=== PATIENT | female | born 1960 | race Caucasian/White ===

== ENCOUNTER 2021-12-15 17:31 | Observation (INO) | payer BC, OTHER, SELFPAY ==
[2021-12-15] VITALS (14 sets, daily range): BP systolic 117–176; BP diastolic 47–84; PULSE 89–100; RESP 16; TEMP 36.1–36.6; O2SAT 89–94; BMI 32.9; BMI 34.8
--- NOTE | 2021-12-15 18:58 | CRLHL7_ITS ---
For Patients: As a result of the Century Cures Act, medical imaging exams and procedure reports are released immediately into your electronic medical record. You may view this report before your referring provider. If you have questions, please contact your health care provider. INDICATION: Fever; cough; COPD; dyspnea. Comparison : None. TECHNIQUE: Two-view chest. FINDINGS: Normal size cardiac silhouette. Clear lung palomares with no evidence of acute pneumonic infiltrates or CHF. No pneumothorax or pleural effusion. IMPRESSION: Negative chest. Dictated by Tracey Benson MD @ 12/15/2021 7:50:29 PM (Electronically Signed)
--- NOTE | 2021-12-15 19:04 | ED_ITS ---
HPI - General Adult General Chief complaint: Cough Stated complaint: Fever, cough, wheezing Time Seen by Provider: 12/15/21 17:42 History of Present Illness HPI narrative: 61-year-old woman presenting to the emergency department with complaint of increasing shortness of breath. Does admit to an underlying diagnosis of COPD which apparently she questions. She does have appropriate steroid inhalers for it per her description. She also has nebulizers and medication for this though it is little unclear to me if this is duo nebs or albuterol that she insisted be dispensed at the beginning of COVRI. She has however not been using the nebulizers. She has continued to use her inhalers. Four evenings ago she started to feel unwell feeling chilled she took some ibuprofen and subsequently had sweats. She has some she had a fever at that point. Notes her baseline of 97?. She has had fits of coughing making her feel more short of breath. All this coughing is also resulted in soreness in the ribs in the back a little bit in the front margin as well. Does not describe any rash. No particular exposures. She thinks she might have a sinus infection noting that she can not feel anything in her nose. PAST MEDICAL HISTORY: Previous tobacco dependence, quit in 2018 COPD - Mild depression and anxiety - Seasonal allergies - ALLERGIES: Environmental allergies SURGICAL HISTORY: Right humerus ORIF. October 2019 One vaginal delivery Cholecystectomy Related Data Home Medications Medication Instructions Recorded Confirmed budesonide-formoterol HFA 160 2 puff inhalation BID 12/15/21 12/16/21 mcg-4.5 mcg/actuation aerosol inhaler bupropion HCl 150 mg 24 hr tablet, 150 mg PO DAILY 12/15/21 12/16/21 extended release fluticasone propionate 50 2 spray intranasal DAILY 12/15/21 12/16/21 mcg/actuation nasal spray,suspension ipratropium 20 mcg-albuterol 100 1 puff inhalation QID PRN 12/15/21 12/16/21 mcg/actuation mist for inhalation (Combivent Respimat) sertraline 25 mg tablet 25 mg PO DAILY 12/15/21 12/16/21 Previous Rx's Medication Instructions Recorded benzonatate 100 mg capsule 200 mg PO TID #20 caps 12/16/21 oseltamivir 30 mg capsule (Tamiflu) 30 mg PO BID #8 caps 12/16/21 prednisone 20 mg tablet 40 mg PO DAILYWM #6 tabs 12/16/21 benzonatate 200 mg capsule 200 mg PO TID #15 caps 12/17/21 oseltamivir 30 mg capsule (Tamiflu) 30 mg PO BID 5 days #6 caps 12/17/21 prednisone 20 mg tablet 40 mg PO DAILY #6 tabs 12/17/21 Allergies Allergy/AdvReac Type Severity Reaction Status Date / Time No Known Drug Allergies Allergy Verified 12/15/21 18:10 Review of Systems Status of ROS: Reports: 10 or more systems reviewed and unremarkable except as noted in History and below [facility] Medical History Blood pressure elevated without history of HTN (07/02/16) Chronic bronchitis with COPD (chronic obstructive pulmonary disease) (07/02/16) Generalized anxiety disorder Major depression Smoking greater than 30 pack years (02/16/15) Surgical History History of cholecystectomy Family History Brother Asthma Cancer High blood pressure Sister Cancer Mother Alzheimers disease Heart disease Asthma Son Asthma Social History Highest level of school completed/degree received: some college, no degree Smoking Status: Former smoker Do you use any of these nicotine containing products: None Second hand tobacco smoke exposure: No How often do you have a drink containing alcohol: never How often do you have six or more drinks on one occasion: Never AUDIT-C Alcohol total score: 0 Non-prescribed substance use: denies use Caffeine: Yes (A CUP/DAY) service: No Exam Narrative: Exam Narrative: Very pleasant. Bright green glasses. Clearly labored in her breathing. Mildly tachypneic. She does have trouble completing sentences due to breathlessness. Is also laryngitic. Oropharynx is moist with some erythematous speckling in far posterior oropharynx that I would associate with irritation from coughing. Neck is supple without LA. Very tight not moving a lot of air. Diffuse end-expiratory wheeze. At 1 point she does do some pursed lip breathing and I asked about this she says she does feel more comfortable with this. Extremities are without edema. Well perfused peripherally. During our conversation with good waveform she does oxygen a between 91 and 93% generally at 1 point hits 94. Const: Vital Signs, click to edit/add: Vital Signs - 24 hr 12/15/21 18:03 12/15/21 19:00 12/15/21 18:57 Temperature 97.8 F Pulse Rate [Right Pulse Oximeter] 100 89 Respiratory Rate 16 Blood Pressure [Ri ght Upper Arm] 154/68 H 144/76 H Pulse Oximetry 93 93 91 Oxygen Delivery Me thod Room Air Room Air Oxygen Flow Rate 12/15/21 20:11 12/15/21 20:30 12/15/21 18:35 Temperature Pulse Rate [Right Pulse Oximeter] Respiratory Rate Blood Pressure [Ri ght Upper Arm] 130/68 176/77 H Pulse Oximetry 89 93 Oxygen Delivery Me thod Room Air Nasal Cannula Oxygen Flow Rate 2 12/15/21 20:00 Temperature Pulse Rate [Right Pulse Oximeter] 93 Respiratory Rate Blood Pressure [Ri ght Upper Arm] Pulse Oximetry 91 Oxygen Delivery Me thod Room Air Oxygen Flow Rate Documenting provider has reviewed patient's vital signs: yes Course Course Hospital Course: Monitored on oximetry. Will be given a DuoNeb and Solu-Medrol. Presuming COPD exacerbation though screening for underlying infectious etiology. Influenza a positive Reevaluation(s) Reevaluation #1: Received DuoNeb. Oxygen saturations on room air now are 89%. However with markedly improved air movement and in the absent wheezing. Appears to be breathing easier/less labored. Placed on oxygen via nasal cannula Vital Signs Vital signs: Initial Vital Signs Temperature 97.8 F 12/15/21 18:03 Temperature Source Temporal Artery Scan 12/15/21 18:03 Pulse Rate 100 12/15/21 18:03 Pulse Rhythm 12/15/21 18:03 Respiratory Rate 16 12/15/21 18:03 Blood Pressure 154/68 H 12/15/21 18:03 Blood Pressure Mean 96 12/15/21 18:03 Blood Pressure Position Sitting 12/15/21 18:03 Pulse Oximetry 93 12/15/21 18:03 Oxygen Delivery Method 12/15/21 18:03 Vital Signs Temperature 97.8 F 12/15/21 18:03 Pulse Rate 100 12/15/21 18:03 Respiratory Rate 16 12/15/21 18:03 Blood Pressure 154/68 H 12/15/21 18:03 Pulse Oximetry 93 12/15/21 18:03 Oxygen Delivery Method 12/15/21 18:03 Temperature 97.9 F 12/16/21 07:00 Pulse Rate 83 12/16/21 07:00 Respiratory Rate 18 12/16/21 07:00 Blood Pressure 137/71 12/16/21 07:00 Pulse Oximetry 91 12/16/21 07:00 Oxygen Delivery Method 12/16/21 07:00 Oxygen Flow Rate 0 12/16/21 07:00 Medical Decision Making MDM Narrative Medical decision making narrative: Reviewing records I see baseline oxygen saturations at 96% on room air Chest x-ray reviewed by me appears absent of any infiltrative process. VBGs show compensation. Will be admitting for oxygen support Medical Records Medical records reviewed: Yes I reviewed the patient's medical records Lab Data Lab results reviewed: Yes I reviewed the patient's lab results Labs: Lab Results 12/15/21 12/15/21 12/15/21 Range/Units 19:15 19:15 19:15 WBC 5.20 (4.50-11.00) K/uL RBC 5.01 (4.00-5.20) m/uL Hgb 14.6 (12.0-16.0) gm/dL Hct 44.9 (33.0-51.0) % MCV 90 (80-100) fL MCH 29 (26-34) pg MCHC 33 (32-36) gm/dL RDW Coeff of Mary 12.9 (11.5-15.5) % Plt Count 232 (140-440) K/uL Neut % (Auto) 69.6 (42.0-72.0) % Lymph % (Auto) 17.5 L (20-44) % [place] % (Auto) 12.5 H (0.0-11.0) % Eos % (Auto) 0.0 (0.0-7.0) % Baso % (Auto) 0.2 (0.0-3.0) % Neut # (Auto) 3.62 (1.7-7.0) K/uL Lymph # (Auto) 0.90 (0.90-2.90) K/uL [place] # (Auto) 0.70 (0.00-0.90) K/UL Eos # (Auto) 0.00 (0.00-0.50) K/uL Baso # (Auto) 0.01 (0.00-0.30) K/uL Abs Immat Gran (auto) 0.01 (0.00-0.30) K/uL Imm/Tot Granulo (auto) 0.2 % VBG pH (7.32-7.43) VBG pCO2 (40-50) mmHG VBG pO2 (25-47) mmHG VBG HCO3 (21-28) mmol/L Sodium 134 L (135-149) mmol/L Potassium 4.2 (3.6-5.1) mmol/L Chloride 99 (96-114) mmol/L Carbon Dioxide 27 (20-32) mmol/L BUN 15 (7-30) mg/dL Creatinine 0.7 (0.5-1.5) mg/dL Estimated Creat Clear 45.54 Estimated GFR 97 ml/min Glucose 102 (60-115) mg/dL Calcium 8.9 (8.4-10.6) mg/dL C-Reactive Protein 2.6 H (0.5-1.0) mg/dL SARS-CoV-2 (PCR) Negative SARS-CoV-2 (Negative) Influenza Type A (PCR) POSITIVE PCR FLU A A (Negative) Influenza Type B (PCR) Negative PCR FLU B (Negative) RSV (PCR) Negative PCR RSV (Negative) 12/15/21 Range/Units 19:15 WBC (4.50-11.00) K/uL RBC (4.00-5.20) m/uL Hgb (12.0-16.0) gm/dL Hct (33.0-51.0) % MCV (80-100) fL MCH (26-34) pg MCHC (32-36) gm/dL RDW Coeff of Mary (11.5-15.5) % Plt Count (140-440) K/uL Neut % (Auto) (42.0-72.0) % Lymph % (Auto) (20-44) % [place] % (Auto) (0.0-11.0) % Eos % (Auto) (0.0-7.0) % Baso % (Auto) (0.0-3.0) % Neut # (Auto) (1.7-7.0) K/uL Lymph # (Auto) (0.90-2.90) K/uL [place] # (Auto) (0.00-0.90) K/UL Eos # (Auto) (0.00-0.50) K/uL Baso # (Auto) (0.00-0.30) K/uL Abs Immat Gran (auto) (0.00-0.30) K/uL Imm/Tot Granulo (auto) % VBG pH 7.366 (7.32-7.43) VBG pCO2 50 (40-50) mmHG VBG pO2 43.0 (25-47) mmHG VBG HCO3 29 H (21-28) mmol/L Sodium (135-149) mmol/L Potassium (3.6-5.1) mmol/L Chloride (96-114) mmol/L Carbon Dioxide (20-32) mmol/L BUN (7-30) mg/dL Creatinine (0.5-1.5) mg/dL Estimated Creat Clear Estimated GFR ml/min Glucose (60-115) mg/dL Calcium (8.4-10.6) mg/dL C-Reactive Protein (0.5-1.0) mg/dL SARS-CoV-2 (PCR) (Negative) Influenza Type A (PCR) (Negative) Influenza Type B (PCR) (Negative) RSV (PCR) (Negative) Imaging Data Chest x-ray: Attestation: I have reviewed the pertinent imaging results. My impression: By my read appears clear of airspace disease Discharge Plan Discharge Clinical Impression: Influenza A, Respiratory failure, COPD (chronic obstructive pulmonary disease) Patient Disposition: Admitted As Inpatient Condition: Stable Discharge Diet: Regular
[2021-12-15] MEDS: IPRAT-ALBUT 0.5-2.5 MG/3 ML NEB 1 NEB IH ×2 (19:20→23:56)
[2021-12-15 19:27] LABS: HCO3 VBG 29 mmol/L (21-28); PCO2 VBG 50 mmHG (40-50); pH VBG 7.366 (7.32-7.43)
[2021-12-15] MEDS: METHYLPREDNISOLONE SOD SUCC 62.5 MG/ML (125) 93.75 MG IVP (19:28)
[2021-12-15 19:29] LABS: Basophils Absolute Auto 0.01 K/uL (0.00-0.30); Basophils Percent Auto 0.2 % (0.0-3.0); Hematocrit 44.9 % (33.0-51.0); Hemoglobin* 14.6 gm/dL (12.0-16.0); Immature Granulocytes Abs Auto 0.01 K/uL (0.00-0.30); Immature Granulocytes Pct Auto 0.2 %; Lymphocytes Percent Auto 17.5 % (20-44); Mean Corpuscular HGB Conc 33 gm/dL (32-36); Mean Corpuscular Hemoglobin 29 pg (26-34); Mean Corpuscular Volume 90 fL (80-100); Monocytes Percent Auto 12.5 % (0.0-11.0); Neutrophils Absolute Auto 3.62 K/uL (1.7-7.0); Neutrophils Percent Auto 69.6 % (42.0-72.0); Platelet Count* 232 K/uL (140-440); RDW Coefficient of Variation % 12.9 % (11.5-15.5); Red Blood Count 5.01 m/uL (4.00-5.20)
[2021-12-15 19:33] LABS: Slide Review Reflex No
[2021-12-15 19:41] LABS: Chloride* 99 mmol/L (96-114); Potassium* 4.2 mmol/L (3.6-5.1); Sodium* 134 mmol/L (135-149)
[2021-12-15 19:44] LABS: Creatinine* 0.7 mg/dL (0.5-1.5); Est. Creatinine Clearance* 45.54; Estimated Glomerular Filt Rate 97 ml/min
[2021-12-15 19:45] LABS: Blood Urea Nitrogen* 15 mg/dL (7-30); Calcium* 8.9 mg/dL (8.4-10.6); Carbon Dioxide* 27 mmol/L (20-32); Glucose* 102 mg/dL (60-115)
[2021-12-15 19:47] LABS: C Reactive Protein* 2.6 mg/dL (0.5-1.0)
[2021-12-15 20:08] LABS: PCR FLU A POSITIVE PCR FLU A (Negative); PCR FLU B Negative PCR FLU B (Negative); PCR RSV Negative PCR RSV (Negative)
[2021-12-15 20:09] LABS: SARS PCR* Negative SARS-CoV-2 (Negative)
--- OUTSIDE RECORDS SUMMARY | 2021-12-15 20:23 | XMS_ITS | Encounter Summary ---
:1960 Author Organization [facility] Address [address] [place] [address] Care Team Providers Name Role Phone [facility] Sim Velazquez MD Primary Care Provider Reason for Visit Reason Comments Neck pain saw surgeon 05/25/[address], results found lipoma, noticed it a couple months ago, family hx of fatal malignant lipomas Encounter Details Date Type Department Care Team Description 06/01/2020 Virtual Visit [facility] Sim Velazquez, Lipom a, unspecified site (Primary Dx); [facility] COPD with exacerbation (HCC) [place] [address] [place], [place] [address] [place] [address] [place] [address] Social History Tobacco Use Types Packs/Day Years Used Date Smoking Tobacco: Former Cigarettes 1 45 Quit : 06/18/2017 Smokeless Tobacco: Never Comments: doesn't smoke in her house Alcohol Use Standard Drinks/Week Comments No 0 (1 standard drink = 0.6 oz pure alcoho l) Sex Assigned at Date Recorded Not on file COVID-19 Exposure Response Date Recorded In the last month, have you been in contact with No / Unsure 05/02/2020 1:59 PM CDT someone who was confirmed or suspected to have Coronavirus / COVID-19? documented as of this encounter Progress Notes Sim Velazquez MD - 06/01/2020 2:15 PM CDT Cristal Rosales presents today via telehealth visit for Neck pain (saw surgeon 05/25/[address], results found lipoma, noticed it a couple months ago, family hx of fatal malignant lipomas) . Lipoma- pt had noticed a swelling on the right collar bone- she had a visit with the orthopedic and was seen for it She under went CT [place] and was diagnosed with lipoma- She is worried about the lipoma since her sister from liposarcoma and her aunt had the same She wants to know more about it She has h/o COPD which is stable She wants refills on her combivent- No s/e from the meds and no flare ups/ exacerbations Problem list, Medications, and Allergies were reviewed in [employer] EMR. O: There were no vitals taken for this visit. General: Calm, no acute distress Psych: Mood and behavior appropriate A/P: Cristal was seen today for neck pain. Diagnoses and all orders for this visit: Lipoma, unspecified site COPD with exacerbation (HCC) - ipratropium-albuteroL (COMBIVENT RESPIMAT) 20-100 mcg/actuation Inhl Mist inhaler; INHALE ONE PUFFBY MOUTH FOUR TIMES DAILY NEEDED I had a long discussion with the patient regarding her findings. I have reviewed her notes from the orthopedic surgeon and also from the CT scan results. I went over the clinical findings of her lipomaand described to her what a lipoma means and also the clinical findings from a liposarcoma. We discussed about the malignant potential of liposarcoma and the symptoms patients will experience with it. It is reassuring that her symptoms are only of a lipoma and not a liposarcoma. We discussed about theinvestigation of liposarcoma including biopsy and further excision. I gave a lot of information to the patient regarding the lipoma, and the liposarcoma she is going to think about it and we will keep a close follow-up on the size of the tumor. At any point if she decides to see a surgeon I will be happy to make the referral. Patient COPD is under good control without any exacerbations. Her medication has been refilled. This visit was completed via interactive telehealth by Sim Velazquez MD by audio only. The patient (or guardian) is aware the visit is a telehealth visit and verbally consents to proceeding, including use of outside records via Care Everywhere as needed. Present for the visit include Cristal Rosales and none. The visit was conducted via telehealth due to COVID-19 pandemic.. Patient is located at home. Provider is located at [facility]. Total time spent today for visit was 20 minutes and included: Review of records, Coordination of care and Documentation of visit. Full vital signs not obtained due to telehealth. Any recorded vitals are self- reported by patient. Sim Velazquez MD documented in this encounter Plan of Treatment Not on filedocumented as of this encounter Visit Diagnoses Diagnosis Lipoma, unspecified site - Primary COPD with exacerbation (HCC) Obstructive chronic bronchitis with exac erbation documented in this encounter Care Teams Tax Economist Relationship Specialty Start Date End Date [facility] PCP - Primary Care Clinic Family Medicine 08/20 [facility] [address] [place], [place] [id number] Sim Velazquez MD PCP - General Family Medicine 08/21/[address] [place] [address] documented as of this encounter
--- OUTSIDE RECORDS SUMMARY | 2021-12-15 20:23 | XMS_ITS | Encounter Summary ---
:1960 Author Organization [facility] Address [address] [place] [address] Care Team Providers Name Role Phone [facility] Unavailable Sim Velazquez MD Primary Care Provider Reason for Referral (Routine) - Open Specialty Diagnoses / Procedures Referred By Contact Refer red To Contact Diagnoses Tobacco use Smoking greater than 30 pack years Encounter for screening for lung cancer Sim Velazquez MD Procedures CT CHEST LOW DOSE LUNG SCREENING W/O CON [address] [place] [address] Referral ID Status Reason Start Date Expiration Date Visits Requ ested Visits Authorized [id number] Open 08/29/2021 1 1 Reason for Visit (Routine) - Open Specialty Diagnoses / Procedures Referred By Contact Refer red To Contact Diagnoses Tobacco use Smoking greater than 30 pack years Encounter for screening for lung cancer Sim Velazquez MD Procedures CT CHEST LOW DOSE LUNG SCREENING W/O CON [address] [place] [address] Referral ID Status Reason Start Date Expiration Date Visits Requ ested Visits Authorized [id number] Open 08/29/2021 1 1 Encounter Details Date Type Department Care Team Description 09/12/2021 Hospital Encounter [facility] [address] [facility], [facility] [address] [place] [address] Social History Tobacco Use Types Packs/Day Years Used Date Smoking Tobacco: Former Cigarettes 1 45 Quit : 06/18/2017 Smokeless Tobacco: Never Comments: doesn't smoke in her house Alcohol Use Standard Drinks/Week Comments No 0 (1 standard drink = 0.6 oz pure alcoho l) Sex Assigned at Date Recorded Not on file COVID-19 Exposure Response Date Recorded In the last 10 days, have you been in contact with No / Unsu re 08/29/2021 9:19 AM CDT someone who was confirmed or suspected to have Coronavirus/COVID-19? documented as of this encounter Medications at Time of Discharge Medication Sig Dispensed Refills Start Date End Date budesonide, conc: 2 mL (0.5 mg) by 1 Box 12 05/22/2019 0.5mg/2mL, (PULMICORT) Nebulization route 0.5 mg/2 mL Inhl once daily. nebulizer suspension buPROPion XL Take 1 tablet (150 mg) 90 tablet 3 08/29/2021 (WELLBUTRIN XL) 150 mg by mouth once daily. oral extended release tablet 24 HRIndications: Depression, major, recurrent, moderate (HCC) COMBIVENT RESPIMAT INHALE 1 PUFF BY MOUTH 12 g 3 01/18 20-100 mcg/actuation FOUR TIMES DAILY Inhl Mist NEEDED inhalerIndications: COPD with exacerbation (HCC) fluticasone (FLONASE) SHAKE LIQUID AND USE 2 48 g 3 50 mcg/actuation nasal SPRAYS IN EACH NOSTRIL sprayIndications: EVERY DAY Chronic bronchitis with COPD (chronic obstructive pulmonary disease) ([facility]) Miscellaneous Medical Nebulizer with tubing 1 each 0 11/2019 Supply and face mask sertraline (ZOLOFT) 25 TAKE 1 TABLET(25 MG) 90 tablet 3 mg oral BY MOUTH EVERY DAY tabletIndications: Current moderate episode of major depressive disorder without prior episode ([facility]) budesonide 160 INHALE 2 PUFFS BY 30.6 g 0 08/07/2021 mcg-formoterol 4.5 mcg MOUTH TWICE DAILY (SYMBICORT) 160-4.5 mcg/actuation Inhl HFAA inhalerIndications: Chronic obstructive pulmonary disease, unspecified COPD type (HCC) documented as of this encounter Plan of Treatment Not on filedocumented as of this encounter Procedures Procedure Name Priority Date/Time Associated Diagnosis Comme nts CT CHEST LOW DOSE Routine 09/12/2021 1:42 PM Tobacco use Results for this LUNG SCREENING W/O CDT Smoking greater than p rocedure are in CON 30 pack years the results Encounter for section. screening for lung cancer documented in this encounter Results CT Lung Cancer Screening (09/12/2021 1:42 PM CDT) Anatomical Region Laterality Modality Chest Computed Tomography Specimen (Source) Anatomical Collection Method Collection Time Re ceived Time Location / / Volume Laterality 09/12/2021 2:44 PM CDT Impressions 09/12/2021 2:52 PM CDT IMPRESSION: ?? 1. ??No CT evidence of lung cancer. 2. ??Atherosclerotic disease of the thor acic aorta and coronary arteries. 3. ??Cholecystectomy. Lung-RADS 1: ??Negative. ??Continue zelalem al screening with LDCT in [address]PORT [address]IGNED BY DR. DANUTA HUNTLEY Narrative 09/12/2021 2:52 PM CDT EXAM: CT CHEST LOW DOSE LUNG SCREENING W/O CON DATE: ??09/12/2021 1:37 PM CLINICAL DATA: ??Z72.0 Tobacco use F17.2 10 Nicotine dependence, cigarettes, uncomplicated Z12.2 Encounter for screening for malignant neoplasm of respiratory organs ADDITIONAL CLINICAL DATA: COMPARISON: ??None. TECHNIQUE: ??A low-dose unenhanced CT sc an of the thorax was performed. ??Specifically, thin-section contiguous transaxial images were obtained through the thorax. ??Coronal reformations were also obtai kim through the thorax. ??No intravenous contrast was given. Reduced mA and kV were used to lower the radiation dose absorbed by the patient. FINDINGS: Mediastinum/Axilla/Colette: ??No axillary, mediastinal, or hilar lymphadenopathy. ??Atherosclerotic disease of the coronary arteries and thoracic aorta. ??No evidence of aortic aneurysm. Lungs: ??No focal infiltrates, effusions , or worrisome pulmonary nodules. Upper Abdomen: ??Cholecystectomy. ?? Bones: ??No acute findings. Other: Procedure Note Gregg Huntley MD - 09/12/2021Forma tting of this note might be different from the original. EXAM: CT CHEST LOW DOSE LUNG SCREENING W /O CON DATE: 09/12/2021 1:37 PM CLINICAL DATA: Z72.0 Tobacco use F17.210 Nicotine dependence, cigarettes, uncomplicated Z12.2 Encounter for screening for malignant neoplasm of respiratory organs ADDITIONAL CLINICAL DATA: COMPARISON: None. TECHNIQUE: A low-dose unenhanced CT scan of the thorax was performed. Specifically, thin-section contiguous transaxial images were obtained through the thorax. Coronal reformations were also obtained through the thorax. No intravenous contrast was give n. Reduced mA and kV were used to lower the radiation dose absorbed by the patient. FINDINGS: Mediastinum/Axilla/Colette: No axillary, me diastinal, or hilar lymphadenopathy. Atherosclerotic disease of the coronary arteries and thoracic aorta. No evidence of aortic aneurysm. Lungs: No focal infiltrates, effusions, or worrisome pulmonary nodules. Upper Abdomen: Cholecystectomy. Bones: No acute findings. Other: IMPRESSION IMPRESSION: 1. No CT evidence of lung cancer. 2. Atherosclerotic disease of the thorac ic aorta and coronary arteries. 3. Cholecystectomy. Lung-RADS 1: Negative. Continue annual s creening with LDCT in 12 months. REPORT SIGNED BY DR. DANUTA HUNTLEY Sim Velazquez MD CT ORDERABLE documented in this encounter Visit Diagnoses Diagnosis Tobacco use Tobacco use disorder Smoking greater than 30 pack years Tobacco use disorder Encounter for screening for lung cancer documented in this encounter Care Teams Assembler Arranger Relationship Specialty Start Date End Date [facility] PCP - Primary Care Clinic Family Medicine 08/20 [facility] [address] [place], [place] [address] Sim Velazquez MD PCP - General Family Medicine 08/21/[address] [place], [place] [address] documented as of this encounter
--- OUTSIDE RECORDS SUMMARY | 2021-12-15 20:23 | XMS_ITS | Encounter Summary ---
:1960 Author Organization [facility] Address [address] [place] [address] Care Team Providers Name Role Phone [facility] Unavailable Sim Velazquez MD Primary Care Provider Encounter Details Date Type Department Care Team Description 08/29/2021 Travel Social History Tobacco Use Types Packs/Day Years [...] have Coronavirus/COVID-19? documented as of this encounter Plan of Treatment Not on filedocumented as of this encounter Visit Diagnoses Not on filedocumented in this encounter Care Teams Social Worker Health Services Relationship Specialty Start Date End Date [facility] PCP - Primary Care Clinic Family Medicine 08/20 [facility] [address] [place] [address] Sim Velazquez MD PCP - General Family Medicine 08/21/[address] [place] [address] documented as of this encounter
--- OUTSIDE RECORDS SUMMARY | 2021-12-15 20:23 | XMS_ITS | Encounter Summary ---
:[address] [facility] Address [address] [place] [address] Care Team Providers Name Role Phone [facility] Sim Velazquez MD Primary Care Provider Reason for Visit Reason Onset Date Comments Flank pain 03/26/2021 Encounter Details Date Type Department Care Team Description 03/26/[address] [facility] Scott Velazquez MD [facility] [address] [place] [address] [place] [address] [place] [address] [phone] Social History Tobacco Use Types Packs/Day Years Used Date Smoking Tobacco: Former Cigarettes 1 45 Quit : 06/18/2017 Smokeless Tobacco: Never Comments: doesn't smoke in her house Alcohol Use Standard Drinks/Week Comments No 0 (1 standard drink = 0.6 oz pure alcoho l) Sex Assigned at Date Recorded Not on file documented as of this encounter Miscellaneous Notes Telephone Encounter - Lashawn Victor RN - 03/26/2021 1:36 PM CST Disposition: ED Actions Requested: none Ok to leave detailed voice message:yes PCP:Yousuf Velazquez Summary of call details: Patient calling in regards to two episodes of severe 10/10 Right sided flank pain that radiated from front to back by rib cage. The first episode was 10 days ago and lasted 5 hours. Patient reports second episode was 2 nights ago and lasted 3 hours. She denies pain now today, but did have low grade fever qf 100.2 yesterday. She states her nausea resolved after first episode. Patient states she had imaging done in the past for something else, and was told she had a kidney stone on Right side. Patient also reports being tired and feling weak. See care advise. Hailey agreed with disposition and verbalized understanding stating she will go to [facility] today or next time pain comes. 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 ? [1] SEVERE pain (e.g., excruciating, scale 8-10) AND [2] present > 1 hour Answer Assessment - Initial Assessment Questions 1. LOCATION: Where does it hurt? (e.g., left, right) Right side by rib cage, (none now) 2. ONSET: When did the pain start? 10 days ago, then again 2 nights ago 3. SEVERITY: How bad is the pain? (e.g., Scale 1-10; mild, moderate, or severe) - MILD (1-3): doesn't interfere with normal activities - MODERATE (4-7): interferes with normal activities or awakens from sleep - SEVERE (8-10): excruciating pain and patient unable to do normal activities (stays in bed) 10/10 at first, 10/10 a few nights ago 4. PATTERN: Does the pain come and go, or is it constant? Comes & goes, lasted 3 & 5 hours 5. CAUSE: What do you think is causing the pain? Possible kidney stones? 6. OTHER SYMPTOMS: Do you have any other symptoms? (e.g., fever, abdominal pain, vomiting, leg weakness, burning with urination, blood in urine) Pain, fever 100.2 yesterday, fatigue, weakness, nausea resolved, 7. : Is there any chance you are ? When was your last menstrual period? 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 PCP - Primary Care Clinic Family Medicine 08/20 [facility] [address], [place] [address] Sim Velazquez MD PCP - General Family Medicine 08/21/19 [address], [place] [address] documented as of this encounter
--- OUTSIDE RECORDS SUMMARY | 2021-12-15 20:23 | XMS_ITS | Clinical Summary ---
:1960 Author Organization [facility] Address [address] [place] [address] Care Team Providers Name Role Phone [facility] Unavailable Sim Velazquez MD Primary Care Provider Allergies Active Allergy Reactions Severity Noted Date Comments Mold (Juan) Runny Nose 02/16/2015 Medications Medication Sig Dispensed Refills Start Date End Date Status Miscellaneous Medical Nebulizer with 1 each 0 05/22/2019 Active Supply tubing and face mask budesonide, conc: 2 mL (0.5 mg) by 1 Box 12 05/22/2019 Active 0.5mg/2mL, Nebulization route (PULMICORT) 0.5 mg/2 once daily. mL Inhl nebulizer suspension COMBIVENT RESPIMAT INHALE 1 PUFF BY 12 g 3 01/18/2021 Active 20-100 mcg/actuation MOUTH FOUR TIMES Inhl Mist DAILY NEEDED inhalerIndications: COPD with exacerbation (HCC) buPROPion XL Take 1 tablet (150 90 tablet 3 08/29/2021 Active (WELLBUTRIN XL) 150 mg) by mouth once mg oral extended daily. release tablet 24 HRIndications: Depression, major, recurrent, moderate (HCC) sertraline (ZOLOFT) TAKE 1 TABLET(25 90 tablet 3 08/29/2021 Active 25 mg oral MG) BY MOUTH EVERY tabletIndications: DAY Current moderate episode of major depressive disorder without prior episode (HCC) fluticasone (FLONASE) SHAKE LIQUID AND 48 g 3 08/29/2021 Active 50 mcg/actuation USE 2 SPRAYS IN nasal EACH NOSTRIL EVERY sprayIndications: DAY Chronic bronchitis with COPD (chronic obstructive pulmonary disease) ([facility]) budesonide 160 INHALE 2 PUFFS BY 30.6 g 0 11/03/2021 Active mcg-formoterol 4.5 MOUTH TWICE DAILY mcg (SYMBICORT) 160-4.5 mcg/actuation Inhl HFAA inhalerIndications: Chronic obstructive pulmonary disease, unspecified COPD type (HCC) Active Problems Problem Noted Date Chronic obstructive pulmonary disease, unspecified SPRING BENDER D type 09/03/2017 Chronic bronchitis with COPD (chronic obstructive pulm onary disease) 07/02/2016 Blood pressure elevated without history of HTN 017 Smoking greater than 30 pack years 02/16/2015 Resolved Problems Problem Noted Date Resolved Date Closed displaced segmental fracture of shaft of right 201904/27/2020 humerus with routine healing Closed fracture of right proximal humerus 09/10/2019 04/27/2020 Overview: Last Assessment & Plan: Formatting of this note might be differe nt from the original. 59yo RHD F 3 weeks s/p right proximal hu merus and humeral shaft fracture, treated non-op in a Wilhelm brace, with some increased varus angulation of shaft fracture on x-ray today but still WNL for non-op mgmt. -Continue Wilhelm brace - okay to roger ve for hygiene -No heavy lifting, pushing, or pulling w ith right hand -Encouraged elbow/wrist/hand ROM as tole rated -Rest, ice, and OTC pain mgmt as needed -Continue calcium and vitamin D suppleme nts Immunizations Name Administration Dates Next Due SHINGRIX 01/31/2019, 10/25/2018 Influenza 10/28/2019, 10/25/2018, 10/25/2016, 12/26/2007 Pneumococcal 13-Edith (Prevnar 13) 06/27/2016 Pneumococcal 23-Edith (Pneumovax) 12/02/2018 Td >7 Yrs 06/19/2003 Tdap >7 yrs 07/02/2016 Family History Medical History Relation Comments Asthma Brother 1 Lung Cancer Brother 1 liposarcoma High Blood Pressure Brother 2 Alzheimer's Disease Mother Asthma Mother Heart Disease Mother CABG Cancer Sister absestos Asthma Son Breast Cancer Neg Family Hx Relation Status Comments Brother 1 Brother 2 Alive Father occupational illness unknown Mother Sister Son Social History Tobacco Use Types Packs/Day Years Used Date Smoking Tobacco: Former Cigarettes 1 45 Quit : 06/18/2017 Smokeless Tobacco: Never Tobacco Cessation: Counseling Given: No Comments: doesn't smoke in her house Alcohol Use Standard Drinks/Week Comments No 0 (1 standard drink = 0.6 oz pure alcoho l) Sex Assigned at Date Recorded Not on file Last Filed Vital Signs Vital Sign Reading Time Taken Comments Blood Pressure 124/80 08/29/2021 9:43 AM CDT Pulse 76 08/29/2021 9:43 AM CDT Temperature 36.8 ??C (98.2 ??F) 08/29/2021 9:43 AM CDT Respiratory Rate 16 08/21/2019 10:39 AM CDT Oxygen Saturation 96% 04/27/2020 10:16 AM CDT Inhaled Oxygen Concentration - - Weight 89 kg (196 lb 4.8 oz) 08/29/2021 9:43 AM CDT Height 154 cm (5' 0.63) 08/29/2021 9:43 AM CDT Body Mass Index 37.54 08/29/2021 9:43 AM CDT Plan of Treatment Health Maintenance Due Date Last Done Comments Colonoscopy 1960 Spirometry 08/27/1962 Pap Smear 07/02/2021 07/02/2016, 12/26/2007 (Previously completed) COVID-19 Vaccine (5 - Booster for 08/12/2021 06/17/2021, , Moderna series) 05/28/2020, Additional history exists Influenza Vaccine (#1) 2021 10/28/2019, 10/25/2018, 10/25/2016, Additional history exists Yearly Review of HCD 08/29/2022 08/29/2021, 08/21/2019, 08/21/2019, Additional history exists Lung Cancer Screening CT 09/12/2022 09/12/2021 Mammogram Screening 09/13/2023 09/12/2021, 04/27/2020, 04/22/2020, Additional history exists Pneumococcal <65 (3 - PPSV23 if 12/03/2023 12/02/2018, 06/11 available, else PCV20) Diabetes Screening 08/29/2024 08/29/2021, 04/27/2020, 12/02/2018, Additional history exists Adult Tetanus Booster 07/02/2026 07/02/2016, 06/19/2003 Lipid Screening 08/29/2026 08/29/2021, 04/27/2020, 12/02/2018, Additional history exists Hepatitis C Screening Completed 07/02/2016 Zoster Vaccine Completed 01/31/2019, 10/25/2018 Medical Devices Implanted Type Area Low Altitude Air Defense Officer Device Identifier Shelf Exp iration Model / Date Serial / L ot Stereo Bx/Hydromark T3-05/02/2020 Clip / Implanted: Qty: 1 on 05/02/2020 by Delia Gonzales MD / [id number] Insurance Payer Benefit Plan Subscriber ID Effective Phone Address Typ e / Group Dates BLUE [facility] [id number] 2000-Pres [phone] [employer] [address] [id number] [place] [address] [place] [id number] 2016-Prese [phone] 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
--- OUTSIDE RECORDS SUMMARY | 2021-12-15 20:23 | XMS_ITS | Encounter Summary ---
:1960 Author Organization [facility] Address [address] [place] [id number] Care Team Providers Name Role Phone [facility] Unavailable Sim Velazquez MD Primary Care Provider Reason for Referral (Routine) - Open Specialty Diagnoses / Procedures Referred By Contact Refer red To Contact Diagnoses Tobacco use Smoking greater than 30 pack years Encounter for screening for lung cancer Sim Velazquez MD Procedures CT CHEST LOW DOSE LUNG SCREENING W/O CON [address] [place] [address] Referral ID Status Reason Start Date Expiration Date Visits Requ ested Visits Authorized [id number] Open 08/29/2021 1 1 Consultation (Routine) - Authorized Specialty Diagnoses / Procedures Referred By Contact Refer red To Contact Gastroenterology Diagnoses Screening for colon cancer Sim Velazquez MD [facility] - [address] [place] [address] [place] [address] [place] [address] Referral ID Status Reason Start Expiration Visits Visits Date Date Requested Authorized [id number] Authorized Specialty 08/29/2021 1 1 Services Required Question Answer Indication for test? Routine initial screen Comments [facility] will be conta cting you to schedule your appointment. If you have immediate needs or questions re garding this appointment, please call [facility] at . Reason for Visit Reason Comments Medicare wellness Medication management Concern Right neck lipoma, discussio n Bruises Encounter Details Date Type Department Care Team Description 08/29/2021 Office Visit Sim Shay Encoun ter for Medicare annual wellness exam (Primary Dx); [facility] Screening for colon cancer; [place] [address] Chronic bronchitis with COPD (chronic ob structive pulmonary disease) (HCC); [address] [place], [place] [address] Tobacco use; [place] Screening for cervical cancer; [place], [place] Smoking g reater than 30 pack years; [id number] Encounter for screening for lung cancer; [phone] [facility]; Current moderat e episode of major depressive disorder without prior episode (HCC); Depression, yan or, recurrent, moderate (HCC); Screening for d iabetes mellitus; Lipid screening Social History Tobacco Use Types Packs/Day Years [...] have Coronavirus/COVID-19? documented as of this encounter Last Filed Vital Signs Vital Sign Reading Time Taken Comments Blood Pressure 124/80 08/29/2021 9:43 AM CDT Pulse 76 08/29/2021 9:43 AM CDT Temperature 36.8 ??C (98.2 ??F) 08/29/2021 9:43 AM CDT Respiratory Rate - - Oxygen Saturation - - Inhaled Oxygen Concentration - - Weight 89 kg (196 lb 4.8 oz) 08/29/2021 9:43 AM CDT Height 154 cm (5' 0.63) 08/29/2021 9:43 AM CDT Body Mass Index 37.54 08/29/2021 9:43 AM CDT documented in this encounter Patient Instructions Patient InstructionsGeovanna Amador - 08/29/2021 9:30 AM CDT In order to achieve and maintain the highest level of health, we recommend the following tests and healthy behaviors. You may have had many of these tests already and you may also be following this advice, but if you are not, please discuss this with your health care team. ??? Drink alcohol only in moderation, avoid binge drinking and do not drink and drive. ??? You should have a PAP smear every 3 or 5 years (depending on test) if you have a history of normal PAP smears. ??? If you are sexually active, consider annual infection testing including testing for HIV, Gonorrhea, Chlamydia, and Syphilis. ??? You should not use any tobacco products and, if you do, we should discuss your willingness to quit at each visit. ??? You should watch your weight and keep it in the normal range. ??? You should receive a tetanus booster every 10 years. ??? You should have a mammogram every 1-2 years starting at age 50 and consider starting them at age40 after discussion with your provider. ??? Starting at age 50, you should have a colon cancer screening - either a colonoscopy every 10 years or an test for blood in the stool every 1 or 3 years (depending on test). ??? You should have your blood pressure checked every year if your pressure is less than 120/80, andmore frequently if it is higher. ??? You should have a flu shot every year in the fall. ??? You should have a series of 2 immunizations against Herpes Zoster (shingles) starting at age 50. ??? Starting at age 45, you should have your cholesterol panel checked at least every 5 years if it is normal, and more frequently if not normal. ??? Ask your provider if a daily aspirin is right for you. ??? If you were born between 1945 and 1965 or have ever used IV drugs, you should have a one-time blood test to screen for Hepatitis C. The [employer] Age Line is brought to you by the [place] [employer]. A free statewide information and assistance service- the free call that does it all! Call weekdays from 8:00AM to 4:30PM. Below are some of the services that can be provided to you: -Health Insurance Counseling (such as how to pick a Medicare Plan) -Prescription Drug Expense Assistance -Forms Assistance (such as applying for Medical Assistance and Medicare) -Home Care -Legal Assistance -Long-term Care Insurance -Long-term Care Planning Options -Caregiver Planning and Support -Grandparents raising Grandchildren -Transportation Assistance -Housekeeping and Chore Services. Preventative Health Recommendations Immunizations: Get a flu shot each year. Stay updated with your COVID vaccinations. Get a tetanus shot every 10 years. Ask your doctor if you need a pneumonia or shingles vaccination. Diet: Eat at least 5 servings of fruits and vegetables daily. Eat whole-grain bread and brown rice instead of white grains and rice. Eat calcium-rich foods daily or take a calcium supplement. Exercise for at least 150 minutes a week (an average of 30 minutes a day, 5 days of the week). This will help you control your weight and prevent disease. Limit alcohol to one drink or less per day. Avoid smoking. Wear sunscreen and avoid tanning beds to prevent skin cancer. See your dentist twice a year for an exam and cleaning. See your eye doctor every 1 to 2 years. Talk with your health care provider about whether or not you should get a mammogram (breast cancer screening test) or a pap smear (cervical cancer screening test). documented in this encounter Progress Notes Sim Velazquez MD - 08/29/2021 9:30 AM CDT S SUBJECTIVE: Cristal Rosales is a 61 y.o. female who presents today for annual routine preventative health maintenance visit. Concerns: patient has no other health concerns today. Gynecologic Concerns: Last pap 2016. She is due for a pap this year. She has not had a history of abnormal pap. Currently is sexually active. She does not need STI testing today. Menstrual status: no longer menstruating, last menses prior to past year. Menopausal symptoms: none.She has not had any recent vaginal bleeding. . No LMP recorded. Patient is postmenopausal. Cardiac Risks: Blood pressure is Normal. BMI today is Body mass index is 37.54 kg/m??.. She is obese (BMI > 30). She has had elevated lipids previously. She has had elevated glucose previously. She does not take aspirin. Family hx negative for early cardiac disease. Cancer Risks: Family hx negative for colon cancer. She has had a colonoscopy previously. She is currently due for colorectal cancer screening. Family hx negative for breast cancer. She has had a mammogram performed previously. She is not currently due for mammogram screening. She is a candidate for annual low-dose CT screen. Family History: Family History Problem Relation Name Age of Onset ??? Alzheimer's Disease Mother ??? Heart Disease Mother CABG ??? Asthma Mother ??? Cancer Sister absestos ??? Asthma Brother ??? Lung Cancer Brother liposarcoma ??? Asthma Son ??? High Blood Pressure Brother ??? Breast Cancer Neg Family Hx Lifestyle Concerns: Exercise: no regular exercise Diet: None. Osteoporosis risks: None Skin risks: None She does feel safe in her relationships. Alcohol Use: Social History Substance and Sexual Activity Alcohol Use No Alcohol Use: Not on file There are not concerns about her alcohol use. Drug Use: Social History Substance and Sexual Activity Drug Use No Tobacco Use: Social History Tobacco Use Smoking Status Former Smoker ??? Packs/day: 1.00 ??? Years: 45.00 ??? Pack years: 45.00 ??? Types: Cigarettes ??? Quit date: 06/18/2017 ??? Years since quittin.2 Smokeless Tobacco Never Used Tobacco Comment doesn't smoke in her house Immunizations: She is up to date on immunizations. Refills: She does need refills today. Current Medications: Current Outpatient Medications on File Prior to Visit Medication Sig Dispense Refill ??? budesonide 160 mcg-formoterol 4.5 mcg (SYMBICORT) 160-4.5 mcg/actuation Inhl HFAA inhaler INHALE2 PUFFS BY MOUTH TWICE DAILY 30.6 g 0 ??? budesonide, conc: 0.5mg/2mL, (PULMICORT) 0.5 mg/2 mL Inhl nebulizer suspension 2 mL (0.5 mg) by Nebulization route once daily. 1 Box 12 ??? COMBIVENT RESPIMAT 20-100 mcg/actuation Inhl Mist inhaler INHALE 1 PUFF BY MOUTH FOUR TIMES DAILY NEEDED 12 g 3 ??? Miscellaneous Medical Supply Nebulizer with tubing and face mask 1 each 0 No current facility-administered medications on file prior to visit. Allergies: Mold (sherrie) Past Medical History: Past Medical History: Diagnosis Date ??? Back injury ROS: see HPI; otherwise denies HEENT, NECK, RESP, CARDIAC, GI, , NEURO or PSYCH Sx OBJECTIVE: BP 124/80 (BP Cuff Site: Right arm, BP Cuff Position: Sitting, BP Cuff Size: Large adult) Pulse 76 Temp 98.2 ??F (36.8 ??C) (Oral) Ht 1.54 m (5' 0.63) Wt 89 kg (196 lb 4.8 oz) BMI 37.54 kg/m?? General - Alert & oriented, pleasant and comfortable. Head - Normocephalic, atraumatic. Eyes - Pupils are equal, round and reactive to light bilaterally. Extraocular movements are intact bilaterally. Sclera and conjunctiva clear. Lids without lesions Ears - Tympanic membranes clear bilaterally. External canals without lesion. Nose - Nares normal. Septum midline. Mucosa normal. Mouth - Oropharynx is clear without exudates. Neck - Normal appearing, no cervical adenopathy or carotid bruits noted. Lungs - Clear to auscultation bilaterally, no wheezes, rales or rhonchi. CV - Regular rate and rhythm, no murmurs, rubs or gallops. Abdomen - Non-tender, non-distended, positive bowel sounds, no masses, no hepatosplenomegaly. No rebound or guarding. Extremities - No edema or deformities. Palpable pulses strong bilaterally. Skin - warm, dry, intact. No rashes or erythema. Neurologic - Cranial nerves 2-12 intact, patellar reflexes intact. Muscle tone, bulk and strength within normal limits throughout. Psych - Judgment and mental status are clear, patient has reasonable insight. Mood is stable. Breast exam: Symmetrical, normal consistency without masses., No dimpling or skin changes, Normal nipples without discharge, no axillary lymphadenopathy No results found for this or any previous visit (from the past 24 hour(s)). ASSESSMENT/PLAN: Cristal was seen today for medicare wellness, medication management, concern and bruises. Diagnoses and all orders for this visit: Encounter for Medicare annual wellness exam Screening for colon cancer - REFERRAL COLONOSCOPY: [facility] Chronic bronchitis with COPD (chronic obstructive pulmonary disease) (HCC) - fluticasone (FLONASE) 50 mcg/actuation nasal spray; Instill 2 sprays into EACH nare ONCE DAILY. Tobacco use - CT CHEST LOW DOSE LUNG SCREENING W/O CON; Future Screening for cervical cancer - Cancel: PAP COLLECTION - [facility] PAP/APTIMA HPV W/REFLEX TO HPV GENOTYPES ([facility]) Smoking greater than 30 pack years - CT CHEST LOW DOSE LUNG SCREENING W/O CON; Future Encounter for screening for lung cancer - CT CHEST LOW DOSE LUNG SCREENING W/O CON; Future Encounter for preventative adult health care examination Current moderate episode of major depressive disorder without prior episode (HCC) - sertraline (ZOLOFT) 25 mg oral tablet; TAKE 1 TABLET(25 MG) BY MOUTH EVERY DAY Depression, major, recurrent, moderate (HCC) - buPROPion XL (WELLBUTRIN XL) 150 mg oral extended release tablet 24 HR; Take 1 tablet (150 mg) by mouth once daily. Screening for diabetes mellitus - GLUCOSE METER ([facility]) OP Lipid screening - LIPID PANEL ([facility]) Reviewed recommendations with patient and handout given addressing diet, exercise, cancer prevention, vaccinations, screening recommendations, and other preventative cares. Return to clinic in 1 year or sooner as needed. Patient requested I address additional health concerns outside of preventative cares and chronic stable issues during visit today, please see separate documentation. Sim Velazquez MD Sim Velazquez MD - 08/29/2021 9:30 AM CDT Sayda Rosales is a 61 y.o. female here for - Moderate depression. Patient mentions it is stable. She was started on Zoloft. She has not noticed any side effects from the medications. She would like a refill on her medication. At this time she has refused counseling. Weight loss Apart from exercise she would like to try some medications which are for weight loss. COPD Patient is on Symbicort and albuterol as needed. She also takes Flonase for her allergies. She wouldlike a refill on her Flonase. She gets her Symbicort from a different physician. She has not had anyCOPD flareups. Patient quit a year ago. No hospitalizations from COPD flareups Patient used to have a cat which unfortunately. She vacuums the entire house and her COPD flareups have decreased significantly. Past Medical History: Diagnosis Date ??? Back injury Current Outpatient Medications: Medication Sig ??? budesonide 160 mcg-formoterol 4.5 mcg (SYMBICORT) 160-4.5 mcg/actuation Inhl HFAA inhaler INHALE2 PUFFS BY MOUTH TWICE DAILY ??? budesonide, conc: 0.5mg/2mL, (PULMICORT) 0.5 mg/2 mL Inhl nebulizer suspension 2 mL (0.5 mg) by Nebulization route once daily. ??? buPROPion XL (WELLBUTRIN XL) 150 mg oral extended release tablet 24 HR Take 1 tablet (150 mg) bymouth once daily. ??? COMBIVENT RESPIMAT 20-100 mcg/actuation Inhl Mist inhaler INHALE 1 PUFF BY MOUTH FOUR TIMES DAILY NEEDED ??? fluticasone (FLONASE) 50 mcg/actuation nasal spray Instill 2 sprays into EACH nare ONCE DAILY. ??? Miscellaneous Medical Supply Nebulizer with tubing and face mask ??? sertraline (ZOLOFT) 25 mg oral tablet TAKE 1 TABLET(25 MG) BY MOUTH EVERY DAY Family History Problem Relation Name Age of Onset ??? Alzheimer's Disease Mother ??? Heart Disease Mother CABG ??? Asthma Mother ??? Cancer Sister absestos ??? Asthma Brother ??? Lung Cancer Brother liposarcoma ??? Asthma Son ??? High Blood Pressure Brother ??? Breast Cancer Neg Family Hx SYSTEM REVIEW: o General: no fever or chills, feeling well. o Skin: no rashes o Heent: No sore throat, nasal congestion o Neurologic: no headache, syncope o Respiratory: No difficulty breathing, no SOB or dyspnea on exertion, or cough o Cardiac: no chest pain or PND, or palpitations. o Gastrointestinal: no pain, nausea/emesis, bowel problems o Genitourinary: no dysuria, problems with vaginal discharge or hematuria. o Musculoskeletal: no new muscles aches or joint pain o Psych: no depression, anxiety, or abuse OBJECTIVE: Blood pressure 124/80, pulse 76, temperature 98.2 ??F (36.8 ??C), temperature source Oral, height 1.54 m (5' 0.63), weight 89 kg (196 lb 4.8 oz), not currently . o General: appears stated age, is in no apparent distress, is well nourished o Head:Normocephalic, atraumatic. o Eye: Pupils are equal, round and reactive to light bilaterally. Extraocular movements are intact bilaterally. Sclera and conjunctiva clear. Lids without lesions o Ent: TM's clear,oropharynx clear without exudates, nasal mucosa/septum/turbinates normal o Neck: no cervical lymphadenopathy thyromegaly. o Cardiovascular: RRR, S1 S2 normal, no murmur, peripheral pulses normal o Lungs: Clear to auscultation bilaterally, no wheezes, rales or rhonchi. o Abdomen: normal BS, soft, no G/R/T, no hepatosplenomegaly or masses o Extremities: no cyanosis, clubbing or edema, joints grossly normal o Neurologic: grossly non-focal,Cranial nerves 2-12 intact, patellar reflexes intact. Muscle tone, bulk and strength within normal limits throughout o Skin: normal to inspection o Lymph: no cervical, axillary lymphadenopathy, no supraclavicular lymphadenopathy o Musculoskeletal: grossly normal to inspection and palpation throughout. Gait normal o Psych: judgement, insight, affect: normal. No signs of psychosis, depression, or anxiety A/P Cristal was seen today for medicare wellness, medication management, concern and bruises. Diagnoses and all orders for this visit: Encounter for Medicare annual wellness exam Screening for colon cancer - REFERRAL COLONOSCOPY: [place] [facility] Chronic bronchitis with COPD (chronic obstructive pulmonary disease) (HCC) - fluticasone (FLONASE) 50 mcg/actuation nasal spray; Instill 2 sprays into EACH nare ONCE DAILY. Tobacco use - CT CHEST LOW DOSE LUNG SCREENING W/O CON; Future Screening for cervical cancer - Cancel: PAP COLLECTION - [facility] PAP/APTIMA HPV W/REFLEX TO HPV GENOTYPES ([facility]) Smoking greater than 30 pack [address] - [address] CHEST LOW DOSE LUNG SCREENING W/O CON; Future Encounter for screening for lung cancer - CT CHEST LOW DOSE LUNG SCREENING W/O CON; Future Encounter for preventative adult health care examination Current moderate episode of major depressive disorder without prior episode (HCC) - sertraline (ZOLOFT) 25 mg oral tablet; TAKE 1 TABLET(25 MG) BY MOUTH EVERY DAY Depression, major, recurrent, moderate (HCC) - buPROPion XL (WELLBUTRIN XL) 150 mg oral extended release tablet 24 HR; Take 1 tablet (150 mg) by mouth once daily. Screening for diabetes mellitus - GLUCOSE METER ([facility]) OP Lipid screening - LIPID PANEL ([facility]) PHQ9 Questionnaire Interest: More than half the days Depression: Several days Sleep: Several days Tired: Several days Appetite: Several days Feelings: Several days Concentration: More than half the days Movement: Not at all Thoughts: Not at all PHQ9 Total Score, calculated: 9 Difficulty: Somewhat difficult Recommended counseling Due to her high PHQ-9 scores and wanting weight loss medications I discussed bupropion with her. Patient is willing to take bupropion for weight loss and depression both. RTC in 6 months Part or all of this note may have been done via dictation in [place] and may have incidental errors Sim Velazquez MD documented in this encounter Plan of Treatment Scheduled Referrals Name Type Priority Associated Diagnoses Order S chedule REFERRAL COLONOSCOPY: Referral Routine Screening for colon Ordered: 08/29/2021 [facility] cancer documented as of this encounter Procedures Procedure Name Priority Date/Time Associated Diagnosis Comme nts LIPID PANEL Routine 08/29/2021 10:31 AM Lipid screening Resul ts for this ([facility]) CDT procedure are i n the results section. GLUCOSE METER Routine 08/29/2021 10:31 AM Screening for Result s for this ([facility]) OP CDT diabetes mellitus procedure are in the results section. documented in this encounter Results CT Lung [...] DANUTA HUNTLEY Sim Velazquez MD CT ORDERABLE GLUCOSE METER ([facility]) OP (08/29/2021 10:31 AM CDT) athologist Signature GLUCOSE CASUAL 87 60 - 100 08/29/2021 [facility] mg/dL 10:39 AM CDT [facility] GLUCOSE Fasting 08/29/2021 [facility] FASTING 10:39 AM CDT [facility] COMMENT OP - [place] Specimen Anatomical Collection Method / Collection Time Recei manny Time (Source) Location / Volume Laterality Blood Venipuncture / 08/29/2021 10:31 2 Unknown AM CDT 10:31 AM CDT Sim Velazquez MD CHEMISTRY ORDERABLE Performing Organization Address City/State/ZIP Code Phon e Number [facility] [address] [place] [id number] [facility] (ABNORMAL) LIPID PANEL ([facility]) (08/29/2021 10:31 AM CDT) Patholo gist Method Time Signature Cholesterol 207 (H) 100 - 199 08/31/2021 [facility] ([facility]) mg/dL 1:07 AM CDT [place] Triglycerides 100 0 - 149 08/31/2021 [facility] ([facility]) mg/dL 1:07 AM CDT [place] HDL Cholesterol 62 >39 mg/dL 08/31/2021 [facility] ([facility]) 1:07 AM CDT [place] VLDL Cholesterol 18 5 - 40 08/31/2021 [facility] [place] ([facility]) mg/dL 1:07 AM CDT [place] LDL Cholesterol 127 (H) 0 - 99 08/31/2021 [facility] Calc - [facility] mg/dL 1:07 AM CDT [place] ([facility]) Specimen Anatomical Collection Method / Collection Time Recei manny Time (Source) Location / Volume Laterality Blood Venipuncture / 08/29/2021 10:31 2 Unknown AM CDT 10:31 AM CDT Narrative [facility] [place] - 08/31/2021 1:07 AM CDT Performed at: ??01 - [facility] [address] ??[id number] [employer] Shift Manager: Bao Dickey MD, Phone: ?? [phone] Sim Velazquez MD [facility] ORDERABLES Performing Organization Address City/State/ZIP Code Phon e Number [facility] [place] [address] [place] [address] documented in this encounter Visit Diagnoses Diagnosis Encounter for Medicare annual wellness e xam - Primary Routine general medical examination at a health care facility Screening for colon cancer Special screening for malignant neoplasm s, colon Chronic bronchitis with COPD (chronic ob structive pulmonary disease) (HCC) Obstructive chronic bronchitis without e xacerbation Tobacco use Tobacco use disorder Screening for cervical cancer Screening for malignant neoplasm of the cervix Smoking greater than 30 pack years Tobacco use disorder Encounter for screening for lung cancer Encounter for preventative adult health care examination Current moderate episode of major depres sive disorder without prior episode (HCC) Depression, major, recurrent, moderate ( HCC) Major depressive disorder, recurrent epi sode, moderate Screening for diabetes mellitus Lipid screening Screening for lipoid disorders Tobacco use Tobacco use disorder Smoking greater than 30 pack years Tobacco use disorder Encounter for screening for lung cancer documented in this encounter Care Teams 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
--- OUTSIDE RECORDS SUMMARY | 2021-12-15 20:23 | XMS_ITS | Encounter Summary ---
:1960 Author Organization [facility] Address [address] [place] [address] Care Team Providers Name Role Phone [facility] Unavailable Sim Velazquez MD Primary Care Provider Encounter Details Date Type Department Care Team Description 09/12/2021 Hospital Encounter [facility] [address] [facility], [facility] [address] [place] [address] Social History Tobacco Use Types Packs/Day Years [...] with COPD (chronic obstructive pulmonary disease) (HCC) Miscellaneous Medical Nebulizer with tubing 1 each 0 11/2019 Supply and face mask sertraline (ZOLOFT) 25 TAKE 1 TABLET(25 MG) 90 tablet 3 mg oral BY MOUTH EVERY DAY tabletIndications: Current moderate episode of major depressive disorder without prior episode ([facility]) budesonide 160 INHALE 2 PUFFS BY 30.6 g 0 08/07/2021 mcg-formoterol 4.5 mcg MOUTH TWICE DAILY (SYMBICORT) 160-4.5 mcg/actuation Inhl HFAA inhalerIndications: Chronic obstructive pulmonary disease, unspecified COPD type (HCC) documented as of this encounter Plan of Treatment Not on filedocumented as of this encounter Procedures Procedure Name Priority Date/Time Associated Diagnosis Comme nts MAMMO SALVADOR Routine 09/12/2021 2:12 PM Breast cancer Results for this SCREENING BI CDT screening by procedure are i n mammogram the results section. documented in this encounter Results MAMMO SALVADOR SCREENING BI (09/12/2021 2:12 PM CDT) Anatomical Region Laterality Modality Breast Bilateral Mammography Specimen (Source) Anatomical Location Collection Method / Collectio n Time Received Time / Laterality Volume Impressions 09/12/2021 2:37 PM CDT : There is no mammographic evidence of mal ignancy. ? RECOMMENDATION: ? - A screening mammogram in 1 year . BI-RADS: Overall: 2 - Benign The patient will be notified of the resu lts. REPORT SIGNED BY Tien Diez MD Narrative 09/12/2021 2:37 PM CDT EXAM: MAMMO SALVADOR SCREENING BI REASON FOR EXAM: Routine screening mammogram COMPARISON: ??Compared to: 04/22/2020 MA MMO SALVADOR SCREENING BI, 11/03/2018 MAMMO DIGITAL SCREENING BI, and 06/19/19 18 MAMMO DIGITAL SCREENING BI TECHNIQUE: Craniocaudal and oblique digital views w ere obtained. ??Tomosynthesis technique was also utilized. Current myles dy was evaluated with Computer Aided Detection (CAD) system. FINDINGS: The breasts are heterogeneously dense. ? ?There is a biopsy marking clip present in the right breast. ??No signif icant masses, calcifications, or other findings are seen. ??There has bee n no significant interval change. Signed Paper MAMMO ORDERABLE documented in this encounter Visit Diagnoses Diagnosis Breast cancer screening by mammogram documented in this encounter Care Teams Residential Program Coordinator Relationship Specialty Start Date End Date Dada Garza [facility] PCP - Primary Care Clinic Family Medicine 08/20 [facility] [address] [place] [id number] Sim Velazquez MD PCP - General Family Medicine 08/21/[address] [place] [address] documented as of this encounter
--- OUTSIDE RECORDS SUMMARY | 2021-12-15 20:24 | XMS_ITS | Encounter Summary ---
:1960 Author Organization [facility] Address [address] [place] [address] Care Team Providers Name Role Phone [facility] Unavailable Sim Velazquez MD Primary Care Provider Encounter Details Date Type Department Care Team Description 04/27/2020 Travel Social History Tobacco Use Types Packs/Day [...] been in contact with No / Unsure 04/27/2020 10:05 AM CDT someone who was confirmed or suspected to have Coronavirus / COVID-19? documented as of this encounter Plan of Treatment Not on filedocumented as of this encounter Visit Diagnoses Not on filedocumented in this encounter Care Teams Flasher Adjuster Relationship Specialty Start Date End Date [facility] PCP - Primary Care Clinic Family Medicine 08/20 [facility] [address] [place] [address] Sim Velazquez MD PCP - General Family Medicine 08/21/[address] [place] [address] documented as of this encounter
--- OUTSIDE RECORDS SUMMARY | 2021-12-15 20:24 | XMS_ITS | Encounter Summary ---
:1960 Author Organization [facility] Address [address] [place] [address] Care Team Providers Name Role Phone [facility] - Unavailable Unavailable Ron Padilla MD, Karla Primary Care Provider Reason for Visit Reason Comments Lab specimens Encounter Details Date Type Department Care Team Description 10/08/2017 Beaker Procedure [facility] for colon [address], [address] [place] [address] Social History Tobacco Use Types Packs/Day Years Used Date Smoking Tobacco: Former Cigarettes 1 45 Quit : 06/18/2017 Smokeless Tobacco: Never Comments: doesn't smoke in her house Alcohol Use Standard Drinks/Week Comments No 0 (1 standard drink = 0.6 oz pure alcoho l) Sex Assigned at Date Recorded Not on file documented as of this encounter Plan of Treatment Not on filedocumented as of this encounter Procedures Procedure Name Priority Date/Time Associated Diagnosis Comme nts IFOBT FECAL OCCULT Routine 10/08/2017 2:03 PM Screening for co cornelio Results for this BLOOD OP CDT cancer procedure are i n the results section. documented in this encounter Results IFOBT FECAL OCCULT BLOOD OP (10/08/2017 2:03 PM CDT) P athologist Signature IFOBT OCCULT Negative Negative 10/08/2017 [place] BLOOD STOOL OP 2:08 PM CDT [facility] Specimen Anatomical Collection Method Collection Time Receive d Time (Source) Location / / Volume Laterality Stool 10/08/2017 2:03 PM 8 2:03 CDT PM CDT Karla Padilla MD URINE ORDERABLE Performing Organization Address City/State/ZIP Code Phon e Number [facility] [address] [place] [address] - [facility] documented in this encounter Visit Diagnoses Diagnosis Screening for colon cancer Special screening for malignant neoplasm s, colon documented in this encounter Care Teams Claims Assistant Relationship Specialty Start [facility] 06/27/16 08/20/19 [facility] - Karla Velasquez MD PCP - General Family Medicine 09/02/17 08/20/[address] [place], [place] [id number] documented as of this encounter
--- OUTSIDE RECORDS SUMMARY | 2021-12-15 20:24 | XMS_ITS | Encounter Summary ---
:1960 Author Organization [facility] Address [address] [place] [address] Care Team Providers Name Role Phone [facility] - Unavailable Unavailable Ron Padilla MD, Karla Primary Care Provider Encounter Details Date Type Department Care Team Description 06/16/2018 Travel Social History Tobacco Use Types Packs/Day [...] on filedocumented in this encounter Care Teams Hand Binder Stripper Relationship Specialty Start Date End Date [facility] PCP - Primary Care Clinic Family Medicine 06/27/16 08/20/19 [facility] - Karla Velasquez MD PCP - General Family Medicine 09/02/17 08/20/[address] [place] [address] documented as of this encounter
--- OUTSIDE RECORDS SUMMARY | 2021-12-15 20:24 | XMS_ITS | Encounter Summary ---
:1960 Author Organization [facility] Address [address] [place] [address] Care Team Providers Name Role Phone Fanny Causey MD Primary Care Provider Unavailable [facility] - Unavailable Unavailable Encounter Details Date Type Department Care Team Description 06/27/2016 Ancillary Procedure [facility] CALDWELL (dyspnea on Imaging - [place] exertion) [address] [address] Social History Tobacco Use Types Packs/Day Years Used Date Smoking Tobacco: Every Day Cigarettes 1 45 Smokeless Tobacco: Never Comments: doesn't smoke in her house Alcohol Use Standard Drinks/Week Comments No 0 (1 standard drink = 0.6 oz pure alcoho l) Sex Assigned at Date Recorded Not on file documented as of this encounter Progress Notes Fanny Causey MD - 06/27/2016 3:45 PM CDT Results discussed with patient in the office. documented in this encounter Plan of Treatment Not on filedocumented as of this encounter Procedures Procedure Name Priority Date/Time Associated Diagnosis Comme nts XR CHEST PA & LAT Routine 06/27/2016 3:49 PM CALDWELL (dyspnea on R esults for this CDT exertion) procedure are i n the results section. documented in this encounter Results XR CHEST PA & LAT (06/27/2016 3:49 PM CDT) Anatomical Region Laterality Modality Chest Radiographic Imaging Specimen (Source) Anatomical Collection Method Collection Time Re ceived Time Location / / Volume Laterality 06/27/2016 4:08 PM CDT Impressions 06/27/2016 4:08 PM CDT IMPRESSION: 1. No acute pulmonary disease. 2. Degenerative changes as described abo ve. Narrative 06/27/2016 4:08 PM CDT EXAM: PA and lateral chest x-ray dated 06/27/2016 3:42 PM CLINICAL DATA: Other forms of dyspnea. COMPARISON: None. VIEWS: PA and lateral views of the chest . FINDINGS: ??The lungs are clear bilatera lly. ??The cardiac silhouette and mediastinal contours are normal. ??No pleural effusion. There is no pneumothorax. 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 Procedure Note Giovanni De Oliveira MD - 7 EXAM: PA and lateral chest x-ray dated 3:42 PM CLINICAL DATA: Other forms of dyspnea. COMPARISON: None. VIEWS: PA and lateral views of the chest . FINDINGS: The lungs are clear bilaterall y. The cardiac silhouette and mediastinal contours are normal. No pleural effusion. There is no pneumothorax. 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 IMPRESSION IMPRESSION: 1. No acute pulmonary disease. 2. Degenerative changes as described abo ve. Fanny Causey MD XRAY ORDERABLE documented in this encounter Visit Diagnoses Diagnosis CALDWELL (dyspnea on exertion) Other dyspnea and respiratory abnormalit y documented in this encounter Care Teams Lead Fire Protection Engineer Relationship Specialty Start Date End Date Fanny Causey MD PCP - General Family Medicine 06/27/16 09/01/17 [facility] PCP - Primary Care Clinic Family Medicine 06/27/16 08/20/19 [facility] - documented as of this encounter
--- OUTSIDE RECORDS SUMMARY | 2021-12-15 20:24 | XMS_ITS | Encounter Summary ---
:1960 Author Organization [facility] Address [address] [place] [address] Care Team Providers Name Role Phone [facility] Unavailable Sim Velazquez MD Primary Care Provider Encounter Details Date Type Department Care Team Description 05/02/2020 Travel Social History Tobacco Use Types Packs/Day [...] on filedocumented in this encounter Care Teams Senior Microstrategy Developer Relationship Specialty Start Date End Date [facility] PCP - Primary Care Clinic Family Medicine 08/[address] [facility] [address] [place] [address] Sim Velazquez MD PCP - General Family Medicine 08/21/[address] [place] [address] documented as of this encounter
--- OUTSIDE RECORDS SUMMARY | 2021-12-15 20:24 | XMS_ITS | Encounter Summary ---
:1960 Author Organization [facility] Address [address] [place] [address] Care Team Providers Name Role Phone [facility] Unavailable [phone] Tim, Primary Care Provider Unavailable Reason for Visit Reason Comments Foot pain Encounter Details Date Type Department Care Team Description 04/12/2014 - Emergency [facility] Jazmyne Drake MD 04/13/2014 Emergency Care [facility] [address] [facility] [address] [place], [place] [address] [place] [address] [phone] (Wo rk) Social History Tobacco Use Types Packs/Day Years Used Date Smoking Tobacco: Every Day Cigarettes 3 Smokeless Tobacco: Never Tobacco Cessation: Ready to Quit: No; Co unseling Given: No Alcohol Use Standard Drinks/Week Comments No 0 (1 standard drink = 0.6 oz pure alcoho l) 3 pack of cigs weekly Sex Assigned at Date Recorded Not on file documented as of this encounter Discharge Instructions AttachmentsThe following attachments cannot be sent through Care Everywhere. MUSCULOSKELETAL PAIN (DIVEHI)documented in this encounter Medications at Time of Discharge Medication Sig Dispensed Refills Start Date End Date ibuprofen (MOTRIN) 800 mg Take 1 Tab by mouth 20 Tab 0 0 04/12/2014 02/16/2015 Oral Tab three times a day. NO MEDICATIONS 0 06/27/2016 documented as of this encounter ED Notes Megha Alcazar RN - 04/13/2014 12:07 AM CST ECC DISCHARGE SBAR S: Situation Patient ready for discharge. Rating pain at 4/Comfort goal of 0. Patient denies any complaints or needs at time of discharge. Patient appears in no acute distress. A: Assessment Patient discharged ambulatory to home at 0010 escorted by friends. Discharge instructions and arrangement include: Follow up with PMD as needed, ibuprofen prescriptiondiscussed and questions answered Patient/family response: Agrees with plan of care R: Recommendation Patient recommended to follow up as instructed by ECC provider. Patient and/family verbalized understanding of information. ESSOR OF BIOLOGY Ellen Drake MD - 04/12/2014 11:33 PM CST Chief Complaint: Foot pain HPI: Initial history obtained at 11:33 PM 04/12/2014 Cristal Rosales is a 54 y.o. female who presents to the emergency department for evaluation of left footpain. A few hours ago the patient was sitting cross legged on the couch when she just noticed some sudden but mild pain in her lateral left ankle/proximal foot. She got up and tried to walk but her pain kept getting worse to the point that she could not weight bear. She tried heat but that made it worse so she came here. Her pain was 10/10 on arrival to the ED (private car with her kids) It is mostlypainful when she is walking on it. Presently after elevating her foot and not weight bearing for more than an hour she feels somewhat better. She has not taken anything for pain. No new swelling or appreciable redness to her. No numbness or weakness. No calf pain or swelling. She denies fever. No recent cough, congestion or other illness. No history of arthritis or gout. No known fall, trauma or strain, she again was just sitting cross legged on the couch when it started. No other joint pain. The patient is otherwise normally healthy. Medications: None Allergies: No known allergies Past Medical History: No chronic medical problems No history of diabetes mellitus, arthritis or gout Past Surgical History: None Social History Presents with her two adult children. Smokes tobacco. Review of Systems ROS pertinent positives and negatives as stated above in the HPI. Physical Exam: Initial ED Vitals Temperature: 98.6 ??F (37 ??C) Pulse: 100 Respirations: 16 BP: 153/68 mmHg SpO2: 97 % Physical Exam Constitutional: Alert, cooperative, non-toxic appearing HEENT: Grossly unremarkable. Cardiovascular: Normal DP pulses bilaterally. Both feet are warm and well perfused. Pulmonary/Chest: Effort normal Musculoskeletal: Mild tenderness to proximal lateral left foot just inferior and anterior to the malleolus. No bony tenderness or deformity. No appreciable swelling, redness or abnormal warmth. Normal ROM of the left ankle. Calves are soft and non-tender bilaterally. Knee normal. Neurological: Alert. Normal strength and sensation in distal lower extremities. Slightly antalgic gait but able to weight bear independently. Skin: normal as noted in musculoskeletal. Interventions: 0004 ibuprofen 800 mg PO Last ED Vitals: Temp: 98.8 ??F (37.1 ??C) Pulse: 86 Resp: 16 BP: 142/87 mmHg SpO2: 98 % ED Course: Past medical records were reviewed and I examined the patient. 11:40 PM rechecked the patient's temperature: normal at 98.8 F. She had not taken any Tylenol or ibuprofen at home. I reviewed exam findings with the patient and discussed outpatient plan. She was agreeable. She was discharged home in stable condition and prescribed ibuprofen. Instructions on supportive care and follow up, as well as indications for return to the emergency department, were discussed. Medical Decision Making: This is a 54 y.o. female who comes in with some pain in her left foot and ankle area. There has beenno trauma and no evidence of infection. Although nursing note indicated a fever of approximately 101F, the patient had recently been drinking coffee and I think that was inaccurate temp. The patient has not felt feverish and on recheck is afebrile currently without any antipyresis. This may just be apositional strain because of the way she was sitting vs some early arthritis or a mild sprain that is just becoming symptomatic. She has good ROM at the ankle and is able to weight bear. No evidence atthis time to suggest septic arthritis. I recommended NSAIDs, ice and reassessment if her pain is wors ening in the next 24-48 hours. If it still persistent in a week, she will follow up with her primarycare physician for reevaluation. The patient is comfortable with that plan. Diagnosis: 1. Left foot pain ED Disposition: Home Scribe Disclosure Statement: Maury Tolentino, am serving as a scribe to document services personally performed by Dr. Ellen Drake based on my observations and the provider's statements to me. 04/12/2014 [facility] ESSOR OF BIOLOGY Cherrie Devine RN - 04/12/2014 11:06 PM CST Patient was sitting on the couch crossed legged noticed sudden onset of pain in the anterior/lateralaspect of her foot/ankle.. She cannot bear weight, foot and ankle are red, warm and swollen. She tired heat and that made the pain worse. Denies injury. Fever of 101.1 on arrival to room. Pain with weight bearing is a 10 out of 10. She lives on the 4th floor of an apt. Building. E Zapata RN - 04/12/2014 10:31 PM CST Triage rounding- Pt sitting in wc with friends at side. No change in status. Awaits ecc room to see MD E Zapata RN - 04/12/2014 9:36 PM CST P tco left foot pain. Denies any soecific injury. Thinks meybe she sat on it wrong. ESSOR OF BIOLOGY documented in this encounter Plan of Treatment Not on filedocumented as of this encounter Visit Diagnoses Diagnosis Left foot pain - Primary Pain in limb documented in this encounter Administered Medications Inactive Administered Medications - up to 3 most recent administrations Medication Order MAR Action Action Date Dose Rate Site ibuprofen (MOTRIN) tablet 800 mg Given 04/13/2014 12:04 AM PROFESSOR OF BIOLOGY 800 mg 800 mg, oral, ONCE NEEDED, 1 dose, Starting on Sat04/12/14 at 2348, Until Sat04/13/14 at 0004, pain documented in this encounter Active and Recently Administered Medications Times are shown in PROFESSOR OF BIOLOGY. PRN Medication Order 04/11/2014 04/12/2014 04/13/2014 ibuprofen (MOTRIN) tablet 800 mg (COMPLETED) 0004 (Given - Provider: Megha Alcazar, CHARANJIT) 800 mg, oral, ONCE NEEDED, 1 dose, St arting on Sat04/12/14 at 2348, Until Sat04/13/14 at 0004, pain documented in this encounter Care Teams Heel Emery Buffer Relationship Specialty Start Date End Date Clinic, [facility] PCP - Primary Care Clinic 04/13/14 06/26/[address] [place] [place] [address] None, PCP - General 04/13/14 06/26/16 documented as of this encounter
--- OUTSIDE RECORDS SUMMARY | 2021-12-15 20:24 | XMS_ITS | Encounter Summary ---
:1960 Author Organization [facility] Address [address] [place] [address] Care Team Providers Name Role Phone [facility] Unavailable Sim Velazquez MD Primary Care Provider Encounter Details Date Type Department Care Team Description 04/22/2020 Travel Social History Tobacco Use Types Packs/Day [...] been in contact with No / Unsure 04/22/2020 9:01 AM REPAIR WEAVER someone who was confirmed or suspected to have Coronavirus / COVID-19? documented as of this encounter Plan of Treatment Not on filedocumented as of this encounter Visit Diagnoses Not on filedocumented in this encounter Care Teams Steward/Stewardess Third Class Relationship Specialty Start Date End Date [facility] PCP - Primary Care Clinic Family Medicine 08/20 [facility] [address] [place] [address] Sim Velazquez MD PCP - General Family Medicine 08/21/[address] [place] [address] documented as of this encounter
--- OUTSIDE RECORDS SUMMARY | 2021-12-15 20:24 | XMS_ITS | Encounter Summary ---
:1960 Author Organization [facility] Address [address] [place] [address] Care Team Providers Name Role Phone [facility] Unavailable Sim Velazquez MD Primary Care Provider Reason for Referral (Routine) - Closed Specialty Diagnoses / Procedures Referred By Contact Refer red To Contact Diagnoses Encounter for screening mammogram for malignant neoplasm of breast Sim Velazquez MD Procedures MAMMO SALVADOR SCREENING BI [address] [place] [address] Referral ID Status Reason Start Date Expiration Date Visits Requ ested Visits Authorized [id number] Closed 04/20/2020 04/20/2021 1 1 EXTERMINATOR Reason for Visit (Routine) - Closed Specialty Diagnoses / Procedures Referred By Contact Refer red To Contact Diagnoses Encounter for screening mammogram for malignant neoplasm of breast Sim Velazquez MD Procedures MAMMO SALVADOR SCREENING BI [address] [place] [address] Referral ID Status Reason Start Date Expiration Date Visits Requ ested Visits Authorized [id number] Closed 04/20/2020 04/20/2021 1 1 Encounter Details Date Type Department Care Team Description 04/22/2020 Hospital Encounter [facility] [address] [facility], [facility] [address] [place], [place] [id number] Social History Tobacco Use Types Packs/Day Years [...] with No / Unsure 04/22/2020 9:01 AM MOTH EXTERMINATOR someone who was confirmed or suspected to have Coronavirus / COVID-19? documented as of this encounter Medications at Time of Discharge Medication Sig Dispensed Refills Start Date End Date budesonide, conc: 2 mL (0.5 mg) by 1 Box 12 05/22/2019 0.5mg/2mL, (PULMICORT) Nebulization route 0.5 mg/2 mL Inhl once daily. nebulizer suspension Miscellaneous Medical Nebulizer with tubing 1 each 0 11/2019 Supply and face mask budesonide 160 INHALE 2 PUFFS BY 30.6 g 3 03/28/202009/2021 mcg-formoterol 4.5 mcg MOUTH TWICE DAILY (SYMBICORT) 160-4.5 mcg/actuation Inhl HFAA inhalerIndications: Chronic obstructive pulmonary disease, unspecified COPD type (HCC) oxyCODONE-acetaminophen Take 1-2 tablets by 10 tablet 0 11/201904/27/2020 (PERCOCET) 5-325 mg mouth every 4 (four) oral tablet hours as needed for pain. documented as of this encounter Plan of Treatment Not on filedocumented as of this encounter Procedures Procedure Name Priority Date/Time Associated Diagnosis Comme nts MAMMO SALVADOR Routine 04/22/2020 9:24 AM Encounter for Results for this SCREENING BI MOTH EXTERMINATOR screening mammogram procedur e are in for malignant the results neoplasm of breast section. documented in this encounter Results MAMMO SALVADOR SCREENING BI (04/22/2020 9:24 AM MOTH EXTERMINATOR) Anatomical Region Laterality Modality Breast Bilateral Mammography Specimen (Source) Anatomical Collection Method Collection Time Re ceived Time Location / / Volume Laterality 04/22/2020 9:33 AM MOTH EXTERMINATOR Impressions 04/22/2020 9:37 AM MOTH EXTERMINATOR IMPRESSION: Small group of calcifications in the mid dle depth of the right breast 10-11 o'clock, for which additional mammographic views are recommended. FOLLOW-UP RECOMMENDATION: Additional vie ws BIRADS: BIRADS 0 - Needs Additional Imag ing Evaluation REPORT SIGNED BY DR. Lionel Purvis Narrative 04/22/2020 9:37 AM MOTH EXTERMINATOR EXAM: BILATERAL DIGITAL SCREENING MAMMOGRAMS WITH CAD AND TOMOSYNTHESIS DATE: 04/22/2020 9:05 AM CLINICAL: Routine. COMPARISON: October 2018; June 2017. TECHNIQUE: Craniocaudal and MLO digital mammograms of both breasts, using tomosynthesis, also evaluated with computer-aided detection (CAD) software. FINDINGS: BREAST DENSITY: Heterogeneously dense No mass or architectural distortion. Sma ll group of calcifications in the middle depth of the right breast at 10-11 o'clock, increased in number. Sim Velazquez MD MAMMO ORDERABLE documented in this encounter Visit Diagnoses Diagnosis Encounter for screening mammogram for ma lignant neoplasm of breast Other screening mammogram documented in this encounter Care Teams Investigative Research Specialist Relationship Specialty Start Date End Date [facility] PCP - Primary Care Clinic Family Medicine 08/20 [place] [address] [place] [address] Sim Velazquez MD PCP - General Family Medicine 08/21/[address] [place] [address] documented as of this encounter
--- OUTSIDE RECORDS SUMMARY | 2021-12-15 20:24 | XMS_ITS | Encounter Summary ---
:1960 Author Organization [facility] Address [address] [place] [address] Care Team Providers Name Role Phone [facility] - Unavailable Unavailable Ron Padilla MD, Karla Primary Care Provider Encounter Details Date Type Department Care Team Description 06/24/2018 Travel Social History Tobacco Use Types Packs/Day [...] on filedocumented in this encounter Care Teams Rn Travel Relationship Specialty Start Date End Date [facility] PCP - Primary Care Clinic Family Medicine 06/27/16 08/20/19 [facility] - Karla Velasquez MD PCP - General Family Medicine 09/02/17 08/20/[address] [place] [address] documented as of this encounter
--- OUTSIDE RECORDS SUMMARY | 2021-12-15 20:24 | XMS_ITS | Encounter Summary ---
:1960 Author Organization [facility] Address [address] [place] [address] Care Team Providers Name Role [facility] Ron Padilla MD, Karla Primary Care Provider Encounter Details Date Type Department Care Team Description 06/16/2018 Ancillary Procedure [facility] Abdominal pain, Imaging - [place] unspecified abdominal [address] [place] [address] [place] [id number] Social History Tobacco Use Types Packs/Day Years [...] Priority Date/Time Associated Diagnosis Comme nts XR ABDOMEN FLAT & Routine 06/16/2018 2:42 PM Abdominal pain, R esults for this UPRIGHT CDT unspecified procedure are i n abdominal location the resul ts section. documented in this encounter Results XR ABDOMEN FLAT & UPRIGHT (06/16/2018 2:42 PM CDT) Anatomical Region Laterality Modality ABD/Pelvis Radiographic Imaging Specimen (Source) Anatomical Collection Method Collection Time Re ceived Time Location / / Volume Laterality 06/16/2018 2:47 PM CDT Impressions 06/16/2018 2:48 PM CDT IMPRESSION: 1. ??No free air or dilated small bowel. 2. ??7 mm right upper quadrant calcifica tion, possibly a kidney stone but nonspecific. REPORT SIGNED BY DR. Master Mata Narrative 06/16/2018 2:48 PM CDT EXAM: X-RAY ABDOMEN -- FLAT AND UPRIGHT DATE: 06/16/2018 2:37 PM COMPARISON: None submitted CLINICAL DATA: Increasing bilateral abdo michelle pain. ADDITIONAL CLINICAL DATA: R10.9 Unspecif ied abdominal pain TECHNIQUE: Supine and upright views of t he abdomen were obtained. FINDINGS: No free air. No gas-filled dilated segments of small bowel. Moderate amount of stool in the right co cornelio. 7 mm right upper quadrant calcification. Procedure Note Master Mata MD - 06/16/2018Form atting of this note might be different from the original. EXAM: X-RAY ABDOMEN -- FLAT AND UPRIGHT DATE: 06/16/2018 2:37 PM COMPARISON: None submitted CLINICAL DATA: Increasing bilateral abdo michelle pain. ADDITIONAL CLINICAL DATA: R10.9 Unspecif ied abdominal pain TECHNIQUE: Supine and upright views of t he abdomen were obtained. FINDINGS: No free air. No gas-filled dilated segments of small bowel. Moderate amount of stool in the right co cornelio. 7 mm right upper quadrant calcification. IMPRESSION IMPRESSION: 1. No free air or dilated small bowel. 2. 7 mm right upper quadrant calcificati on, possibly a kidney stone but nonspecific. REPORT SIGNED BY DR. Master Mata Sim Velazquez MD XRAY ORDERABLE documented in this encounter Visit Diagnoses Diagnosis Abdominal pain, unspecified abdominal lo cation documented in this encounter Care Teams Pilot Supervisor Relationship Specialty Start Date End Date [facility] PCP - Primary Care Clinic Family Medicine 06/27/16 08/20/19 [facility] - Karla Velasquez MD PCP - General Family Medicine 09/02/17 08/20/19 [id number] [facility] [address] [place] [address] documented as of this encounter
--- OUTSIDE RECORDS SUMMARY | 2021-12-15 20:24 | XMS_ITS | Encounter Summary ---
:1960 Author Organization [facility] Address [address] [place] [address] Care Team Providers Name Role Phone [facility] - Unavailable Unavailable Ron Padilla MD, Karla Primary Care Provider Reason for Referral Procedure - Internal (Routine) - Closed Specialty Diagnoses / Procedures Referred By Contact Refer red To Contact Gastroenterology Diagnoses Screening for colon cancer Sim Velazquez MD [address] [place] [address] Referral ID Status Reason Start Date Expiration Date Visits V isits Requested Authorized [id number] Closed Specialty 12/02/2018 1 1 Services Required Question Answer Indication for test? Routine initial screen 50+ Comments [facility] will be conta cting you to schedule your appointment. If you have immediate needs or questions re garding this appointment please call [facility] at . (Routine) - Closed Specialty Diagnoses / Procedures Referred By Contact Refer red To Contact Diagnoses Screening for lipid disorders Sim Velazquez MD Procedures LIPID PROFILE [facility] [address] [place] [address] Referral ID Status Reason Start Date Expiration Date Visits Requ ested Visits Authorized [id number] Closed 12/02/2018 12/02/2019 1 1 Reason for Visit Reason Comments Physical fasting (Routine) - Closed Specialty Diagnoses / Procedures Referred By Contact Refer red To Contact Diagnoses Screening for lipid disorders Sim Velazquez MD Procedures LIPID PROFILE [facility] [address] [place] [address] Referral ID Status Reason Start Date Expiration Date Visits Requ ested Visits Authorized [id number] Closed 12/02/2018 12/02/2019 1 1 Encounter Details Date Type Department Care Team Description 12/02/2018 Office Visit [facility] Sim Velazquez Encoun ter for dietary counseling and surveillance; [facility] Screening for lipid disorders; [place] [address] Screening for diabetes mellitus; [address] [place] [address] Screening for colon cancer; [place] Need for vaccination; [facility] [place] Encounter for preventative adult health care examination; [id number] Chronic obstructive pulmonar y disease, unspecified COPD type ([facility]) [phone] Social History Tobacco Use Types Packs/Day Years Used Date Smoking Tobacco: Former Cigarettes 1 45 Quit : 06/18/2017 Smokeless Tobacco: Never Comments: doesn't smoke in her house Alcohol Use Standard Drinks/Week Comments No 0 (1 standard drink = 0.6 oz pure alcoho l) Sex Assigned at Date Recorded Not on file documented as of this encounter Last Filed Vital Signs Vital Sign Reading Time Taken Comments Blood Pressure 134/84 12/02/2018 9:07 AM CDT Pulse 80 12/02/2018 9:07 AM CDT Temperature - - Respiratory Rate - - Oxygen Saturation - - Inhaled Oxygen Concentration - - Weight 85.9 kg (189 lb 6.4 oz) 12/02/2018 9:07 AM CDT Height 156.2 cm (5' 1.5) 12/02/2018 9:07 AM CDT Body Mass Index 35.21 12/02/2018 9:07 AM CDT documented in this encounter Patient Instructions Patient InstructionsSim Velazquez MD - 12/02/2018 8:45 AM CDT We value your health and wellness. While weight loss is both a hard topic to discuss and a harder one to tackle, here are some starter tips to help you on your way to even better health: GENERAL INFORMATION: What is obesity? Am I overweight? Obesity is a medical condition caused by too much body fat. Your caregiver will use your height and weight to calculate your body mass index (BMI). You are obese if your BMI is greater than 30. You are considered overweight if your BMI is greater than 25. Your BMI is There is no height or weight on file to calculate BMI. What are the risks of obesity? Obesity can cause many health problems, including injuries and physical disability. You may have some problems now. Other problems may happen in the future if you are notable to lose weight. Your caregiver may order tests to check for the following: ?? Diabetes ?? High blood pressure or high cholesterol ?? Heart disease ?? Gallbladder or liver disease ?? Cancer of the colon, breast, prostate, liver, or kidney ?? Sleep apnea ?? Arthritis or gout How is weight managed? The goal of treatment is to help you lose weight so your health will improve.Even a small decrease in BMI can reduce the risk of many health problems. Your caregiver can help you set a weight loss goal, such as losing 10% of your body weight. ?? Lifestyle changes are the first step in treating obesity. These include making healthy food choices and getting regular physical activity. Your caregiver may suggest a weight-loss program that involves coaching, education, and therapy. Some people need coaching on healthy eating, particularly thosewith other health issues like diabetes, heart disease or high blood pressure. Nutrition or diet counseling may be available if you have other health issues related to obesity. Please ask your provider for a referral if you are interested. ?? Medicine Various weight loss medications are available. Some are newer and others have been used for many years. No studies have been done to show which if any may work the best. In general, they all work by decreasing your appetite. Usually they are reserved for people with a BMI over 30, or under30 if other health issues are present. Each medication has possible interactions with other medications or health issues, so if you feel this may be a good option for you, we recommend visiting with your regular provider to discuss this option since they know you the best. ?? Surgery Surgery is the only way for some people to lose weight and keep it off. Evidence is growing that surgery can be particularly helpful for obese people with diabetes, sleep apnea and high blood pressure. Surgery is usually reserved for people with a BMI over 40, or if you have weight related health issues, a BMI over 35 may also qualify. If you are interested in learning more about surgery options for weight loss, please ask your provider for more information or a referral to a surgical supply assistant (bariatric surgeon) who performs this type of surgery. For some, surgery is a drastic but necessary option. The decision to have surgery is important and should be made carefully What can I do to be successful losing weight? ?? Set small, realistic goals. An example of a small goal is to walk for 20 minutes 5 days a week. Do not try to change everything at once. ?? Tell friends, family members, and coworkers about your goals and ask for their support. Ask a friend to lose weight with you, or join a weight-loss support group. ?? Identify foods or triggers that may cause you to overeat , and find ways to avoid them. Remove tempting high-calorie foods from your home and workplace. Place a bowl of fresh fruit on your kitchen counter. If stress causes you to eat, then find other ways to cope with stress. ?? Keep a diary to track what you eat and drink, and your daily calorie intake. Also write down how many minutes of physical activity you do each day. Weigh yourself once a week and record it in your diary. What eating changes should I make? You will need to eat 500 to 1000 fewer calories each day than youcurrently eat to lose 1 to 2 pounds a week. The following changes will help you cut calories: ?? Eat smaller portions. Use small plates, no larger than 9 inches in diameter. Fill your plate halffull of fruits and vegetables. Measure your food using measuring cups until you know what a serving size looks like. ?? Eat 3 meals and 1 or 2 snacks each day. Plan your meals in advance. Cook and eat at home most of the time. Eat slowly. ?? Eat fruits and vegetables at every meal. They are low in calories and high in fiber, which makes you feel full. Do not add butter, margarine, or cream sauce to vegetables. Use herbs to season steamed vegetables. ?? Eat less fat and fewer fried foods. Eat more baked or grilled chicken and fish. These protein sources are lower in calories and fat than red meat. Limit fast food. Dress your salads with olive oil and vinegar instead of bottled dressing. ?? Limit the amount of sugar you eat. Do not drink sugary beverages. Limit alcohol. What activity changes should I make? Physical activity is good for your body in many ways. It helps you burn calories and build strong muscles. It decreases stress and depression, and gives you an overall sense of well-being. It can also help you sleep better. Talk to your caregiver before you begin an exercise program. ?? Exercise for at least 30 minutes 5 days a week. Start slowly. Set aside time each day for physical activity that you enjoy and that is convenient for you. It is best to do both weight training and an activity that increases your heart rate, such as walking, bicycling, or swimming. ?? Find ways to be more active. Do yard work and housecleaning. Walk up the stairs instead of using elevators. Spend your leisure time going to events that require walking, such as outdoor festivals and art fairs. This extra physical activity can help you lose weight and keep it off. When should I contact my caregiver? ?? You have symptoms of gallbladder or liver disease, such as pain in your upper abdomen. ?? You have knee or hip pain and discomfort while walking. ?? You have symptoms of diabetes, such as intense hunger and thirst, and frequent urination. ?? You have symptoms of sleep apnea, such as snoring or daytime sleepiness. ?? You have questions or concerns about your condition or care. When should I seek immediate care or call 911? ?? You have a severe headache, confusion, or difficulty speaking. ?? You have weakness on one side of your body. ?? You have chest pain, sweating, or shortness of breath. Adapted from ?? 2013 [employer]. Information is for End User's use only and may notbe sold, redistributed or otherwise used for commercial purposes. All illustrations and images included in CareNotes?? are the copyrighted property of [employer] or [employer]. Preventative Health Recommendations Immunizations: Get a flu shot each year. Get a tetanus shot every 10 years. [...] encounter Progress Notes Sim Velazquez MD - 12/02/2018 8:45 AM CDT I have reviewed the abnormal BMI results with the patient. In response to these results, we have agreed to the following plan: Exercise goal set and Dietary goal set SUBJECTIVE: Crisatl Rosales is a 58 y.o. female who presents today for annual routine preventative health maintenance visit. Concerns: patient has no other health concerns today. Gynecologic Concerns: Last pap 2014. She is not due for a pap this year. She [...] BMI today is Body mass index is 35.21 kg/m??.. She is obese (BMI > 30). She has not had elevated lipids previously. She has not had elevated glucose previously. She does not [...] Asthma Son ??? High Blood Pressure Brother Lifestyle Concerns: Exercise: no regular exercise Diet: Low carbohydrate and None. Osteoporosis risks: None Skin risks: wears sunscreen She does feel safe in her relationships. Alcohol Use: Social History Substance and Sexual Activity Alcohol Use No There are not concerns about her alcohol use. Drug Use: Social History Substance and Sexual Activity Drug Use No Tobacco Use: Social History Tobacco Use Smoking Status Former Smoker ??? Packs/day: 1.00 ??? Years: 45.00 ??? Pack years: 45.00 ??? Types: Cigarettes ??? Last attempt to quit: 06/18/2017 ??? Years since quittin.4 Smokeless Tobacco Never Used Tobacco Comment doesn't smoke in her house Immunizations: She is not up to date on immunizations. Refills: She does need refills today. Current Medications: Current Outpatient Medications on File Prior to Visit Medication Sig Dispense Refill ??? fluticasone (FLONASE) 50 mcg/actuation nasal spray Instill 2 sprays into EACH nare once daily. ??? ipratropium-albuterol (COMBIVENT RESPIMAT) 20-100 mcg/actuation Inhl Mist inhaler Inhale 1 puff four times a day as needed. 1 Inhaler 11 ??? loratadine (CLARITIN) 10 mg oral tablet Take 10 mg by mouth once daily. No current facility-administered medications on file prior to visit. Allergies: Mold (sherrie) Past Medical History: Past Medical History: Diagnosis Date ??? Back injury ROS: see HPI; otherwise denies HEENT, NECK, RESP, CARDIAC, GI, , NEURO or PSYCH Sx OBJECTIVE: BP 134/84 Pulse 80 Ht 1.562 m (5' 1.5) Wt 85.9 kg (189 lb 6.4 oz) BMI 35.21 kg/m?? General - Alert & oriented, pleasant [...] hour(s)). ASSESSMENT/PLAN: Cristal was seen today for physical. Diagnoses and all orders for this visit: Encounter for dietary counseling and surveillance Screening for lipid disorders - LIPID PROFILE [facility]; Future Screening for diabetes mellitus - Cancel: GLUCOSE METER ([facility]) OP - GLUCOSE METER ([facility]) OP; Future Screening for colon cancer - REFERRAL COLONOSCOPY: [place] [facility] Need for vaccination - PNEUMOCOCCAL 23-JOMAR VACC (PNEUMOVAX) Encounter for preventative adult health care examination Chronic obstructive pulmonary disease, unspecified COPD type (HCC) - budesonide 160 mcg-formoterol 4.5 mcg (SYMBICORT) 160-4.5 mcg/actuation Inhl HFAA inhaler; Inhale 2 puffs twice a day. Reviewed recommendations with patient and handout given addressing diet, exercise, cancer prevention, vaccinations, screening recommendations, and other preventative cares. Return to clinic in 1 year or sooner as needed. Sim Velazquez MD Sim Velazquez MD - 12/02/2018 8:45 AM CDT S documented in this encounter Plan of Treatment Scheduled Referrals Name Type Priority Associated Diagnoses Order S chedule REFERRAL COLONOSCOPY: [place] Referral Routine Screening for co cornelio Ordered: 12/02/2018 GASTROENTEROLOGY cancer documented as of this encounter Procedures Procedure Name Priority Date/Time Associated Diagnosis Comme nts GLUCOSE METER Routine 12/02/2018 10:01 AM Screening for Result s for this ([facility]) OP CDT diabetes mellitus procedure are in the results section. LIPID PROFILE Routine 12/02/2018 10:01 AM Screening for lipid Results for this [facility] CDT disorders procedure are i n the results section. documented in this encounter Results GLUCOSE METER ([facility]) OP (12/02/2018 10:01 AM CDT) athologist Signature GLUCOSE CASUAL 84 60 - 100 12/02/[address] [facility] OP mg/dL 10:07 AM CDT [facility] GLUCOSE Fasting 12/02/[address] [facility] FASTING 10:07 AM CDT [facility] COMMENT [facility] [place] Specimen Anatomical Collection Method / Collection Time Recei manny Time (Source) Location / Volume Laterality Blood Venipuncture / 12/02/2018 10:01 9 Unknown AM CDT 10:01 AM CDT Sim Velazquez MD CHEMISTRY ORDERABLE Performing Organization Address City/State/ZIP Code Phon e Number [facility] [address] [place] [address] [facility] (ABNORMAL) LIPID PROFILE [facility]ASC[facility] (12/02/2018 10:01 AM CDT) [facility] Method Time Signature SPECIMEN TYPE Fasting 12/02/[address] [facility] 7:08 PM CDT [facility] CHOLESTEROL 197 <200 12/02/2018 [facility] mg/dL 7:08 PM CDT [facility] TRIGLYCERIDES 70 <150 12/02/2018 [facility] PROFILE mg/dL 7:08 PM CDT [facility] LDL CHOL, CALC 116 (H) <100 12/02/2018 [facility] mg/dL 7:08 PM CDT [facility] HDL CHOLESTEROL 67 >40 mg/dL 12/02/2018 [facility] L 7:08 PM CDT [facility] CHOL/HDL RATIO 2.9 0.0 - 4.9 12/02/2018 [facility] 7:08 PM CDT [facility] Specimen Anatomical Collection Method / Collection Time Recei manny Time (Source) Location / Volume Laterality Blood Venipuncture / 12/02/2018 10:01 9 Unknown AM CDT 10:01 AM CDT Narrative [facility] - 12/02 7:08 PM CDT LDL CHOLESTEROL REFERENCE RANGES: (FOR PATIENTS W/O HEART DISEASE) <100 mg/dL = Optimal 100-129 mg/dL = Near/Above Optimal 130-159 mg/dL = Borderline High 160-189 mg/dL = High >/= 190 mg/dL = Very High Sim Velazquez MD CHEMISTRY ORDERABLE Performing Organization Address City/State/ZIP Code Phon e Number [facility] [address] [place] [address] LABORATORY documented in this encounter Visit Diagnoses Diagnosis Encounter for dietary counseling and lissette veillance Screening for lipid disorders Screening for diabetes mellitus Screening for colon cancer Special screening for malignant neoplasm s, colon Need for vaccination Need for prophylactic vaccination and in oculation against unspecified single disease Encounter for preventative adult health care examination Chronic obstructive pulmonary disease, u nspecified COPD type (HCC) documented in this encounter Care Teams Warp Tier Relationship Specialty Start Date End Date StephanDada carter PCP - Primary Care Clinic Family Medicine 06/27/16 08/20/19 [facility] - Karla Velasquez MD PCP - General Family Medicine 09/02/17 08/20/[address] [place] [address] documented as of this encounter
--- OUTSIDE RECORDS SUMMARY | 2021-12-15 20:24 | XMS_ITS | Encounter Summary ---
:1960 Author Organization [facility] Address [address] [place] [address] Care Team Providers Name Role Phone [facility] Unavailable Sim Velazquez MD Primary Care Provider Encounter Details Date Type Department Care Team Description 08/21/2019 Travel Social History Tobacco Use Types Packs/Day [...] been in contact with No / Unsure 08/21/2019 11:20 AM CDT someone who was confirmed or suspected to have Coronavirus / COVID-19? documented as of this encounter Plan of Treatment Not on filedocumented as of this encounter Visit Diagnoses Not on filedocumented in this encounter Care Teams Manager Story Relationship Specialty Start Date End Date [facility] PCP - Primary Care Clinic Family Medicine 08/20 [facility] [address] [place] [address] Sim Velazquez MD PCP - General Family Medicine 08/21/[address] [place] [address] documented as of this encounter
--- OUTSIDE RECORDS SUMMARY | 2021-12-15 20:24 | XMS_ITS | Encounter Summary ---
:1960 Author Organization [facility] Address [address] [place] [address] Care Team Providers Name Role Phone Fanny Causey MD Primary Care Provider Unavailable [facility] - Unavailable Unavailable Reason for Referral (Routine) - Closed Specialty Diagnoses / Procedures Referred By Contact Refer red To Contact Diagnoses Encounter for preventative adult health care examination Blood pressure elevated without history of HTN Fanny Causey MD Procedures BASIC METAB PROFILE Referral ID Status Reason Start Date Expiration Date Visits Requ ested Visits Authorized [id number] Closed 07/02/2016 07/02/2017 1 1 (Routine) - Closed Specialty Diagnoses / Procedures Referred By Contact Refer red To Contact Diagnoses Other problems related to lifestyle Fanny Causey MD Procedures HEP C ANTIBODY Referral ID Status Reason Start Date Expiration Date Visits Requ ested Visits Authorized [id number] Closed 07/02/2016 07/02/2017 1 1 (Routine) - Closed Specialty Diagnoses / Procedures Referred By Contact Refer red To Contact Diagnoses Screening for lipid disorders Fanny Causey MD Procedures LIPID PROFILE CASCADE Referral ID Status Reason Start Date Expiration Date Visits Requ ested Visits Authorized [id number] Closed 07/02/2016 07/02/2017 1 1 (Routine) - Closed Specialty Diagnoses / Procedures Referred By Contact Refer red To Contact Diagnoses Screening for cervical cancer Screening for HPV (human papillomavirus) Fanny Causey MD Procedures HPV HIGH RISK DNA WITH 16/18 GENOTYPING Referral ID Status Reason Start Date Expiration Date Visits Requ ested Visits Authorized [id number] Closed 07/02/2016 07/02/2017 1 1 Reason for Visit Reason Comments Physical fasting Encounter Details Date Type Department Care Team Description 07/02/2016 Office Visit [facility] Fanny Causey En counter for preventative adult health care examination (Primary Dx); Clinic - Tabitha Saeed MD Overweight (BMI 25.0-29.9); [facility] Screening for lipid disorder s; [id number] Tobacco e; [place], [address] Screening for diabetes [facility]; [place] [address] Screening for cervical cance r; [phone] Screening for H PV (human papillomavirus); Breast cancer s creening; Screening for c olon cancer; Smoking greater than 30 pack years; Encounter for s creening for lung cancer; Other problems related to lifestyle; Need for vaccin ation; Blood pressure elevated without history of HTN Social History Tobacco Use Types Packs/Day Years [...] Sign Reading Time Taken Comments Blood Pressure 141/87 07/02/2016 8:41 AM CDT Pulse 78 07/02/2016 8:41 AM CDT Temperature 36.6 ??C (97.9 ??F) 07/02/2016 8:39 AM CDT Respiratory Rate - - Oxygen Saturation - - Inhaled Oxygen Concentration - - Weight 72.9 kg (160 lb 11.2 oz) 07/02/2016 8:39 AM CDT Height 158.1 cm (5' 2.25) 07/02/2016 8:39 AM CDT Body Mass Index 29.16 07/02/2016 8:39 AM CDT documented in this encounter Patient Instructions Patient InstructionsCathlbobby Causey MD - 07/02/2016 8:46 AM CDT Schedule the CT scan of your chest. A prior authorization will be needed. Schedule mammogram Stool testing for colon cancer screening Losing a little bit of weight may help with blood pressure but quitting smoking is the best thing you can do. After I see your kidney tests I will likely recommend you take medication for blood pressure Preventative Health Recommendations Immunizations: Get a flu [...] a pap smear (cervical cancer screening test). We value your health and wellness. While [...] is greater than 25. Your BMI is Body mass index is 29.16 kg/m??. What are the risks of obesity? Obesity [...] information or a referral to a surgical dressing maker (bariatric surgeon) who performs this type of [...] or shortness of breath. Adapted from ?? 2012 [employer]. Information is for End User's use only and may notbe sold, redistributed or otherwise used for commercial purposes. All illustrations and images included in CareNotes?? are the copyrighted property of [employer]. or [employer]. documented in this encounter Progress Notes Fanny Causey MD - 07/02/2016 8:46 AM CDT Chief Complaint Patient presents with ??? Physical fasting SUBJECTIVE: Cristal Rosales is a 56 y.o. female who presents today for annual routine preventative health maintenance visit. Concerns: Feels much, COPD diagnosed at previous visit, much better on symbicort and combivent. Gynecologic Concerns: Last pap 2007. She is due for a pap this year. She has not had a history of abnormal pap. Currently is not sexually active. She does not need STI testing today. No LMP recorded. Patient is postmenopausal. Cardiac Risks: Blood pressure is Abnormal. She is overweight. BMI today is Body mass index is 29.16 kg/m??.. She has not had elevated lipids previously. She does not take aspirin, encouraged Family hx positive for early cardiac disease. Cancer Risks: Family hx negative for colon cancer. She has not had a colonoscopy previously. She has not noticed any stool changes. She is due for colorectal cancer screening. Family hx negative for breast cancer. She has had a mammogram performed previously. She has not noticed any breast changes. She is due for mammogram screening. Family History: Family History Problem Relation Age of Onset ??? Alzheimer's Disease Mother ??? Heart Disease Mother CABG ??? Asthma Mother ??? Cancer Sister absestos ??? Asthma Brother ??? Lung Cancer Brother liposarcoma ??? Asthma Son ??? 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 Tries not to eat salt. Osteoporosis risks: Low Ca/D intake She does wear sunscreen and does not pardo. She does feel safe in her relationships. Dental: last seen over a year ago Eyes: every other year Alcohol Use: History Alcohol Use No Drug Use: History Drug Use No Tobacco Use: History Smoking Status ??? Current Every Day Smoker ??? Packs/day: 1.00 ??? Years: 45.00 ??? Types: Cigarettes Smokeless Tobacco ??? Never Used Comment: doesn't smoke in her house Immunizations: She is not up to date on immunizations. Refills: She does not need refills today. Current Medications: Current Outpatient Prescriptions Medication Sig Dispense Refill ??? budesonide 160 mcg-formoterol 4.5 mcg (SYMBICORT) 160-4.5 mcg/actuation Inhl HFAA inhaler Inhale2 puffs Twice a Day. 1 Inhaler 12 ??? fluticasone (FLONASE) 50 mcg/actuation nasal spray Instill 2 sprays into EACH nare once daily. ??? ipratropium-albuterol (COMBIVENT RESPIMAT) 20-100 mcg/actuation Inhl Mist inhaler Inhale 1 puff four times a day as needed. 1 Inhaler 11 ??? loratadine (CLARITIN) 10 mg oral tablet Take 10 mg by mouth once daily. No current facility-administered medications for this visit. Allergies: Mold (sherrie) Past Medical History: Past Medical History: Diagnosis Date ??? Back injury ROS: is negative including Eyes,ENT,CV,Resp,GI,,MS,Skin,Neuro,Psych,Endo,Heme/Lymph,and All/Immun OBJECTIVE: BP (!) 141/87 (BP Cuff Site: Right arm, BP Cuff Position: Sitting, BP Cuff Size: Regular adult) Pulse 78 Temp 97.9 ??F (36.6 ??C) (Oral) Ht 1.581 m (5' 2.25) Wt 72.9 kg (160 lb 11.2 oz) BMI 29.16 kg/m?? General - alert & oriented, pleasant and comfortable. Head - Normocephalic, atraumatic. Eyes - Pupils are equal, round and reactive to light bilaterally. Extraocular movements are intact bilaterally. Sclera and conjunctiva clear. Lids without lesions Ears - Tympanic membranes clear bilaterally. External canals without lesion. Mouth - oropharynx is clear without exudates. Neck - normal appearing, no cervical or supraclavicular adenopathy Lungs - Clear to auscultation bilaterally, no wheezes, rales or rhonchi, much deeper breaths than atlast visit. CV - Regular rate and rhythm, no murmurs, rubs or gallops. Abdomen - Non-tender, no masses, no hepatosplenomegaly. Extremities - No edema or deformities. Palpable pulses strong bilaterally. Skin - warm, dry, intact. No rashes or erythema. Neurologic - Cranial nerves 2-12 intact, patellar reflexes intact. Muscle tone, bulk within normal limits throughout. Psych - Judgment and mental status are clear, patient has reasonable insight. Mood is stable. Breast exam: Symmetrical, normal consistency without masses., No dimpling or skin changes, Normal nipples without discharge, no axillary lymphadenopathy Pelvic exam: EGBUS within normal limits, normal cervix without lesions, polyps or tenderness, uterusnormal size, shape, consistency, no mass or tenderness, adnexa normal in size without mass or tenderness. Buttock: right upper inner thigh <grape-sized tender indurated mass with oozing at the surface, no purulence visible. No flunctuance, appears to have already ruptured. ASSESSMENT/PLAN: 56-year-old female with a 10-bakr-zgsb history of smoking was here for physical/pap. She is going todo CT for lung cancer screening. Her blood pressure is high, although much less higher than it's been on previous visits, so she has hypertension, checking BMP at this time and advised her that I wouldmake a recommendation for blood pressure medication. Of course quitting smoking and a little bit of weight loss would be a better treatment. She's going to try cutting back on cookies , but bakes for entertainment. Her COPD is significantly better on the Symbicort and Combivent. She is advised to quit smoking but is not interested in a referral for quit plan. If the boil on upper thigh doesn't resolve spontaneously she should return to clinic for I&D. Diagnoses and all orders for this visit: Overweight (BMI 25.0-29.9) Screening for lipid disorders - LIPID PROFILE CASCADE Tobacco use Screening for diabetes mellitus - GLUCOSE, SERUM Screening for cervical cancer - PAP TEST (TURNER MACHINE CYTOLOGY) - HPV HIGH RISK DNA WITH 16/18 GENOTYPING - PAP COLLECTION Screening for HPV (human papillomavirus) - PAP TEST (TURNER MACHINE CYTOLOGY) - HPV HIGH RISK DNA WITH 16/18 GENOTYPING - PAP COLLECTION Breast cancer screening - MAMMO DIGITAL SCREENING BI; Future Screening for colon cancer - IFOBT FECAL OCCULT BLOOD OP; Future - IFOBT COLLECTION KIT Smoking greater than 30 pack years - CT CHEST LUNG CANCER SCREENING; Future Encounter for screening for lung cancer - CT CHEST LUNG CANCER SCREENING; Future Encounter for preventative adult health care examination - BASIC METAB PROFILE Other problems related to lifestyle - HEP C ANTIBODY Need for vaccination - TDAP VACCINE >7 YRS Blood pressure elevated without history of HTN - BASIC METAB PROFILE Reviewed recommendations with patient and handout given addressing diet, exercise, cancer prevention, vaccinations, screening recommendations, and other preventative cares. I have reviewed the abnormal BMI results with the patient. In response to these results, we have agreed to the following plan: Dietary goal set -cut back on cookies. She is unwilling to exercise intentionally at this time b/c her job has her on her feet and physical all day. Lung Cancer Screening with Low Dose CT counseling/shared decision making performed today. - Patient is asymptomatic. - Patient has a 45 pack year smoking history, and currently smokes. - Risks (including radiation risk, false-positives, over-diagnosis) and benefits discussed with patient today. - Discussed importance of adhering to annual lung cancer screening as well as follow-up testing/treatment as needed. - Discussed smoking cessation. Return to clinic in 1 year or sooner as needed. Options for treatment and follow-up care were reviewed with the patient. He/she was engaged and actively involved in the decision making process. He/she verbalized understanding of the options discussed and was satisfied with the final plan. Fanny Causey MD documented in this encounter Plan of Treatment Scheduled Orders Name Type Priority Associated Diagnoses Order S chedule PAP COLLECTION Procedures Routine Screening for ce rvical cancer Ordered: 07/02/2016 Screening for HPV (human papillomavirus) documented as of this encounter Procedures Procedure Name Priority Date/Time Associated Diagnosis Comme nts HPV HIGH RISK DNA Routine 07/02/2016 9:27 AM Screening for Res ults for this WITH 16/18 CDT cervical cancer procedure are in GENOTYPING Screening for HPV the result s (human section. papillomavirus) PAP (TURNER MACHINE CYTOLOGY) Routine 07/02/2016 9:27 AM Screening for Re sults for this CDT cervical cancer procedure are in Screening for HPV the result s (human section. papillomavirus) LIPID PROFILE Routine 07/02/2016 9:27 AM Screening for lipid R esults for this CASCADE CDT disorders procedure are i n the results section. BASIC METAB PROFILE Routine 07/02/2016 9:27 AM Encounter for R esults for this CDT preventative adult procedure are in health care the results examination section. Blood pressure elevated without history of HTN HEP C ANTIBODY Routine 07/02/2016 9:27 AM Other problems Resul ts for this CDT related to lifestyle procedu re are in the results section. documented in this encounter Results BASIC METAB PROFILE (07/02/2016 9:27 AM CDT) P athologist Signature SODIUM 140 136 - 145 07/02/2016 [facility] mMol/L 5:16 PM CDT HEALTH LABORATORY POTASSIUM 4.4 3.5 - 5.1 07/02/2016 [facility] mMol/L 5:16 PM CDT HEALTH LAB[facility]ATORY CHLORIDE 103 98 - 112 07/02/2016 [facility] mMol/L 5:16 PM CDT HEALTH LABORATORY CARBON DIOXIDE 30 21 - 32 07/02/2016 [facility] mMol/L 5:16 PM CDT HEALTH LAB[facility]ATORY BUN (UREA 11 7 - 24 07/02/2016 [facility] NITRO) mg/dL 5:16 PM CDT HEALTH LAB[facility]ATORY CREATININE 0.70 0.55 - 07/02/2016 [facility] 1.02 mg/dL 5:16 PM CDT HEALTH LABORATORY EST GFR >60 >60 mL/min 07/02/2016 [facility] (CKD-EPI) 5:16 PM CDT HEALTH LABORATORY EST GFR IF >60 >60 mL/min 07/02/2016 [facility] AM 5:16 PM CDT HEALTH LABORATORY GLUCOSE 97 74 - 106 07/02/2016 [facility] mg/dL 5:16 PM T [facility] LABORATORY CALCIUM, SERUM 9.2 8.5 - 10.1 07/02/2016 [facility] mg/dL 5:16 PM CDT [facility] LABOR[facility] ANION GAP 7.0 0.0 - 15.0 07/02/2016 [facility] mMol/L 5:16 PM CDT [facility] LABORATORY Specimen Anatomical Collection Method / Collection Time Recei manny Time (Source) Location / Volume Laterality Blood Venipuncture / 07/02/2016 9:27 07/02/2016 9:27 Unknown AM CDT AM CDT Fanny Causey MD CHEMISTRY ORDERABLE Performing Organization Address City/[facility]/ZIP Code Phon e Number [facility] [address] [place] [address] LABORATORY HEP C ANTIBODY (07/02/2016 9:27 AM CDT) [facility] [employer] Method Time Signature Hepatitis C Non-Reacti Non-Reacti 07/02/2016 [facility] Antibody ve ve 6:04 PM CDT HEALTH LABORATORY Specimen Anatomical Collection Method / Collection Time Recei manny Time (Source) Location / Volume Laterality Blood Venipuncture / 07/02/2016 9:27 07/02/2016 9:27 Unknown AM CDT AM CDT Fanny Causey MD IMMUNOLOGY ORDERABLE Performing Organization Address City/State/ZIP Code Phon e Number [facility] [address] [place] [address] LABORATORY (ABNORMAL) LIPID PROFILE CASCADE (07/02/2016 9:27 AM CDT) [facility] [employer] Method Time Signature SPECIMEN TYPE Fasting 07/02/2016 [facility] 5:16 PM T [facility] LABORATORY CHOLESTEROL 204 (H) <200 07/02/2016 [facility] mg/dL 5:16 PM T [facility] LABORATORY TRIGLYCERIDES 78 <150 07/02/2016 [facility] PROFILE mg/dL 5:16 PM T [facility] LABORATORY LDL CHOL, CALC 115 (H) <100 07/02/2016 [facility] mg/dL 5:16 PM T [facility] LABORATORY HDL CHOLESTEROL 73 >40 mg/dL 07/02/2016 [facility] L 5:16 PM T [facility] LABORATORY CHOL/HDL RATIO 2.8 0.0 - 4.9 07/02/2016 [facility] 5:16 PM [facility] LABORATORY Specimen Anatomical Collection Method / Collection Time Recei manny Time (Source) Location / Volume Laterality Blood Venipuncture / 07/02/2016 9:27 07/02/2016 9:27 Unknown AM CDT AM CDT Narrative [facility] - 07/02 5:16 PM CDT LDL CHOLESTEROL REFERENCE RANGES: (FOR PATIENTS W/O HEART DISEASE) <100 mg/dL = Optimal 100-129 mg/dL = Near/Above Optimal 130-159 mg/dL = Borderline High 160-189 mg/dL = High >/= 190 mg/dL = Very High Fanny Causey MD CHEMISTRY ORDERABLE Performing Organization Address City/[facility]/ZIP Code Phon e Number [facility] [address] [facility] [place] [address] LABORATORY HPV HIGH RISK DNA WITH 16/18 GENOTYPING (07/02/2016 9:27 AM CDT) [facility] gist Method Time Signature HPV HIGH RISK Negative for Negative for 07/05/2016 [place] TYPE 16 HPV type 16. HPV type 16. 5:54 AM CDT [facility] HPV HIGH RISK Negative for Negative for 07/05/2016 [place] TYPE 18 HPV type 18. HPV type 18. 5:54 AM T [facility] HPV OTHER Negative for Negative for 07/05/2016 [place] HIGH RISK other high other high 5:54 AM CDT [facility] TYPES risk HPV risk HPV HEALTH types. types. LABORATORY Comment: HPV other high risk types inclu de 31, 33, 35, 39, 45, 51, 52, 56, 58, 59, 66, and 68. Specimen (Source) Anatomical Collection Method Collection Time Re ceived Time Location / / Volume Laterality Vaginal and 07/02/2016 9:27 07/02/2016 9 :27 cervical AM CDT AM CDT cytologic material (specimen) Fanny Causey MD MICROBIOLOGY ORDERABLE Performing Organization Address City/[facility] Phon e Number [facility] [address] [place] [address] LABORATORY PAP TEST (TURNER MACHINE CYTOLOGY) (07/02/2016 9:27 AM CDT) Component Value Ref Test Analysis Performed Pathologis t Range Method Time At Signature Case Report Pap Smear ? Case: [id number] ? 07/06/2016 [facility] Authorizing Provider: ??Fanny Briceno se, MD ?Collected: ? 07/02/2016 09:27 AM ? 8:06 AM [facility] Ordering Location: ? [facility] ?Received: ?07/02/2016 09:27 AM ? CDT HEALTH ? [facility] ? LABORATORY ? Center ? First Screen: ? Adalgisa Chowdhury ? Specimen: ?Cervical Thin Prep with HPV Test Button Attaching Machine Operator Screening, Cervix ? Interpretation Negative for 07/06/2016 ANIVAL Frias lectronically intraepithelial 8:06 AM [facility] sign ed by Adalgisa portillo or [facility] [place] on malignant cells. LABORATORY at 8:06 AM Specimen Satisfactory for 07/06/2016 [place] Adequacy evaluation. 8:06 AM [facility] Endocervical/trans [facility] HEALTH formation zone LABORATORY component present. LMP 2008 07/06/2016 [place] 8:06 AM [facility] LABORATORY Pap Disclaimer This specimen was screened b y the ThinPrep Imaging System prior to manual review by a side door worker and/or pathologist. 07/06/2016 [place] 8:06 AM [facility] The Pap test is a screening test and has an irreducible false-negative rate. Routine periodic testing and follow-up of unexplained clinical signs and symptoms are important to minimize the consequence of false-negative Pap tests. [facility] LABORATORY Heriberto et al. 2012 Updated C [employer] Guidelines for the Management of Abnormal Cervical Cancer Screening Tests and Cancer Precursors. J Low Genit Tract Dis 2013; 17 (5): S2-S27 Specimen (Source) Anatomical Collection Method Collection Time Re ceived Time Location / / Volume Laterality Vaginal and SPECIMEN / Unknown 07/02/2016 9:27 2016 9:27 cervical AM [facility] cytologic material (specimen) Fanny Causey MD PATHOLOGY/CYTOLOGY ORDERABLE Performing Organization Address City/State/ZIP Code Phon e Number [facility] [address] [place] [address] LABORATORY documented in this encounter Visit Diagnoses Diagnosis Encounter for preventative adult health care examination - Primary Overweight (BMI 25.0-29.9) Overweight Screening for lipid disorders Tobacco use Tobacco use disorder Screening for diabetes mellitus Screening for cervical cancer Screening for malignant neoplasm of the cervix Screening for HPV (human papillomavirus) Special screening examination for human papillomavirus (HPV) Screening for colon cancer Special screening for malignant neoplasm s, colon Smoking greater than 30 pack years Tobacco use disorder Encounter for screening for lung cancer Other problems related to lifestyle Need for vaccination Need for prophylactic vaccination and in oculation against unspecified single disease Blood pressure elevated without history of HTN Elevated blood pressure reading without diagnosis of hypertension documented in this encounter Care Teams Landing Signal Officer Relationship Specialty Start Date End Date Fanny Causey MD PCP - General Family Medicine 06/27/16 09/01/17 [place] PCP - Primary Care Clinic Family Medicine 06/27/16 08/20/19 [facility] - documented as of this encounter
--- OUTSIDE RECORDS SUMMARY | 2021-12-15 20:24 | XMS_ITS | Encounter Summary ---
:1960 Author Organization [facility] Address [address] [place] [address] Care Team Providers Name Role Phone [place] [facility] Unavailable Sim Velazquez MD Primary Care Provider Reason for Visit Reason Comments Arm injury Encounter Details Date Type Department Care Team Description 08/21/[address] [facility] Michelle Barr MD Emergency Care [facility] [address] [facility] [address] [place], [place] [address] [place] [address] [phone] (Wo rk) Social History Tobacco Use Types [...] / COVID-19? documented as of this encounter Last Filed Vital Signs Vital Sign Reading Time Taken Comments Blood Pressure 180/77 08/21/2019 10:39 AM CDT Pulse 68 08/21/2019 10:39 AM CDT Temperature 36.6 ??C (97.8 ??F) 08/21/2019 10:39 AM CDT Respiratory Rate 16 08/21/2019 10:39 AM CDT Oxygen Saturation 94% 08/21/2019 10:39 AM CDT Inhaled Oxygen Concentration - - Weight - - Height - - Body Mass Index - - documented in this encounter Discharge Instructions AttachmentsThe following attachments cannot be sent through Care Everywhere.Arm Fracture in Adults (Discharge Care) (Botswanan)documented in this encounter Medications at Time of Discharge Medication Sig Dispensed Refills Start Date End Date budesonide, conc: 2 mL (0.5 mg) by 1 Box 12 05/22/2019 0.5mg/2mL, (PULMICORT) Nebulization route 0.5 mg/2 mL Inhl once daily. nebulizer suspension Miscellaneous Medical Nebulizer with tubing 1 each 0 11/2019 Supply and face mask oxyCODONE-acetaminophen Take 1-2 tablets by 10 tablet 0 11/201904/27/2020 (PERCOCET) 5-325 mg mouth every 4 (four) oral tablet hours as needed for pain. documented as of this encounter ED Notes Ana Loving RN - 08/21/2019 11:43 AM CDT P: Discharge A: Discharged ambulatory to home at 1144 escorted by self. SPouse picking up. I: Discharge information and arrangements included: review of written discharge instructions, prescriptions sent with patient R:Patient expressed understanding of information. Ana Loving RN - 08/21/2019 11:19 AM CDT Patient back from x-ray, up to bathroom with assistance from RN to toilet. Back in room on cart and Dr. Barr at bedside discussing results. Jason Barr MD - 08/21/2019 10:41 AM CDT CHIEF COMPLAINT: Arm Injury HPI: Initial history obtained at 10:41 AM 08/21/19. Cristal Rosales is a 59 y.o. female who presents to the emergency department for evaluation of an arm injury. The patient reports she tripped, fell, and landed on her right shoulder and upper arm earlier today. She did not hit her head or lose consciousness. Following this, she developed immediate pain tothe right upper arm. She took Ibuprofen 800 mg without relief and went to clinic for evaluation, gideon was sent here. She denies neck pain, chest pain, abnormal shortness of breath, or other extremity pain. MEDICATIONS: budesonide 160 mcg-formoterol 4.5 mcg (SYMBICORT) 160-4.5 mcg/actuation Inhl HFAA inhaler budesonide, conc: 0.5mg/2mL, (PULMICORT) 0.5 mg/2 mL Inhl nebulizer suspension fluticasone (FLONASE) 50 mcg/actuation nasal spray ipratropium-albuterol (COMBIVENT RESPIMAT) 20-100 mcg/actuation Inhl Mist inhaler ALLERGIES: The patient has no known allergies to medications. PAST MEDICAL HISTORY: COPD PAST SURGICAL HISTORY: The patient does not describe any past surgical procedures. FAMILY HISTORY: CAD - mother Asthma - mother, brother, son Hypertension - brother SOCIAL HISTORY: The patient is . The patient formerly smoked tobacco and does not consume alcohol. REVIEW OF SYSTEMS: Review of Systems Respiratory: Negative for shortness of breath. Cardiovascular: Negative for chest pain. Musculoskeletal: Positive for myalgias. Negative for neck pain. All other systems reviewed and are negative. PHYSICAL EXAM: Physical Exam Temperature: 97.8 ??F (36.6 ??C) Pulse: 68 Respirations: 16 BP: (!) 180/77 SpO2: 94 % Physical Exam Constitutional: Patient is oriented to person, place, and time. Patient appears well-developed and well-nourished. Obviously uncomfortable. Splinting the right upper extremity against her body. Eyes: Conjunctivae are clear, sclera are not icteric and EOM are intact. Pupils are equal, round, and reactive to light. ENT: External ears normal. Nose normal. Orocavity and oropharynx are clear and moist. No oropharyngeal erythema, lesions or exudate. No tracheal deviation present. Cardiovascular: RRR, nl S1,S2, no rubs, murmurs or gallops. Peripheral pulses full and symmetric. NoJVD. Respiratory: Effort normal and breath sounds normal and equal. No stridor, rales, rhonchi, wheezes or retractions. Chest wall is non-tender. GI: Soft. Bowel sounds are normal. Patient exhibits no distension and no mass. There is no tenderness. There is no rebound and no guarding. Musculoskeletal: Neck Neck and back are non-tender. No chest wall tenderness. Tenderness to the right deltoid. No clavicle, scapular, elbow, or wrist tenderness. Skin: Skin is warm and dry. No rash noted. No erythema. No edema. Old bruise to the right deltoid region. Cap refill normal in the upper extremities. Neurological: Patient is alert and oriented to person, place, and time. Patient has normal strength.No cranial nerve deficit or sensory deficit. Coordination normal. Psychiatric: Patient has a normal mood and affect Lymphadenopathy: Patient has no cervical adenopathy. When available, pre-hospital and nursing notes and vitals were reviewed. ED COURSE: Imaging: XR Right Humerus: IMPRESSION: Comminuted surgical neck fracture. Articular surfaces appear congruent. Oblique fracture at the mid humeral shaft width one shaft width anterior displacement. Reading Per Radiology. XR Right Shoulder: IMPRESSION: Surgical neck fracture with slight anterior displacement and mild impaction. Mild comminution. Humeral and glenoid articular surfaces appear in apposition. Degenerative change at the distal clavicle and acromioclavicular joint. Reading per radiology Interventions: 1052: Percocet 1 Tablet (5-325 mg), PO ED Vitals: Patient Vitals for the past 24 hrs: BP Temp Pulse Resp SpO2 08/21/19 1039 (!) 180/77 97.8 ??F (36.6 ??C) 68 16 94 % MDM: Cristal Rosales is a 59 y.o. female who presents for evaluation of isolated injury she sustained to her proximal right upper arm. Her exam and imaging are consistent with proximal humerus fracture. She is neurovascularly intact. She doesn't appear to have other injuries. She was placed in a sling for comfo rtable. I encouraged her to do Codman's exercises to the extent that she can while in the sling to maintain shoulder joint mobility. She can use Tylenol or Percocet to manage her pain. She can follow up with [facility] or with an orthopedic group in the [facility] where she is currently living next week. We did send her home with a copy of her images on a disc to take with her to her follow up. She can return for new or worsening symptoms. DIAGNOSIS: ICD-10-CM 1. Unspecified displaced fracture of surgical neck of right humerus, initial encounter for closed fracture S42.211A DISPOSITION: Discharge New Prescriptions OXYCODONE-ACETAMINOPHEN (PERCOCET) 5-325 MG ORAL TABLET Take 1-2 tablets by mouth every 4 (four) hours as needed for pain. ATTESTATION: Scribe Attestation: I, Crhis Novoa, am serving as a scribe to document services personally performed by Jason Barr MD, based on my observations and the provider's statements to me. Provider Attestation: Portions of this medical record were completed by a scribe. UPON MY REVIEW AND AUTHENTICATION BY ELECTRONIC SIGNATURE, this confirms (a) I performed the applicable clinical services, and (b) the recordis accurate. Jason Barr MD 10:41 AM 08/21/19 [facility] Kimberly Hanley RN (Tina) - 08/21/2019 10:37 AM CDT Trip and fall, now R shoulder/humerus area pain. Denies hitting her head, denies neck pain. Took 800 mg Ibuprofen. documented in this encounter Plan of Treatment Not on filedocumented as of this encounter Procedures Procedure Name Priority Date/Time Associated Diagnosis Comme nts XR SHOULDER 2 OR 3 STAT 08/21/2019 11:10 AM Re sults for this VIEWS RT CDT procedure are i n the results section. XR HUMERUS RT STAT 08/21/2019 11:09 AM Results for this CDT procedure are i n the results section. documented in this encounter Results XRAY SHOULDER RIGHT 2 OR 3 VIEWS (08/21/2019 11:10 AM CDT) Anatomical Region Laterality Modality Extremity Computed Radiography Specimen (Source) Anatomical Collection Method Collection Time Re ceived Time Location / / Volume Laterality 08/21/2019 11:10 AM CDT Impressions 08/21/2019 11:10 AM CDT IMPRESSION: Surgical neck fracture with slight anterior displacement and mild impaction. Mild comminution. Humeral and glenoid articular surfaces a ppear in apposition. Degenerative change at the distal clavic le and acromioclavicular joint. REPORT SIGNED BY DR. Nelson Sanon Narrative 08/21/2019 11:10 AM CDT EXAM: XR SHOULDER 2 OR 3 VIEWS RT ?? DATE: 08/21/2019 10:56 AM CLINICAL DATA: Trauma VIEWS: 3 FINDINGS/ Procedure Note Nelson Costa MD - 08/21/2019F ormatting of this note might be different from the original. EXAM: XR SHOULDER 2 OR 3 VIEWS RT DATE: 08/21/2019 10:56 AM CLINICAL DATA: Trauma VIEWS: 3 FINDINGS/ IMPRESSION IMPRESSION: Surgical neck fracture with slight anterior displacement and mild impaction. Mild comminution. Humeral and glenoid articular surfaces a ppear in apposition. Degenerative change at the distal clavic le and acromioclavicular joint. REPORT SIGNED BY DR. Nelson Sanon Jason Barr MD XRAY ORDERABLE XRAY HUMERUS RIGHT (08/21/2019 11:09 AM CDT) Anatomical Region Laterality Modality Extremity Computed Radiography Specimen (Source) Anatomical Collection Method Collection Time Re ceived Time Location / / Volume Laterality 08/21/2019 11:09 AM CDT Impressions 08/21/2019 11:09 AM CDT IMPRESSION: Comminuted surgical neck fracture. Artic ular surfaces appear congruent. Oblique fracture at the mid humeral shaf t width one shaft width anterior displacement. REPORT SIGNED BY DR. Nelson Sanon Narrative 08/21/2019 11:09 AM CDT EXAM: XR HUMERUS RT ?? DATE: 08/21/2019 10:56 AM CLINICAL DATA: Trauma VIEWS: Frontal and lateral views of the shaft of the humerus were obtained. FINDINGS/ Procedure Note Nelson Costa MD - 08/21/2019F ormatting of this note might be different from the original. EXAM: XR HUMERUS RT DATE: 08/21/2019 10:56 AM CLINICAL DATA: Trauma VIEWS: Frontal and lateral views of the shaft of the humerus were obtained. FINDINGS/ IMPRESSION IMPRESSION: Comminuted surgical neck fracture. Artic ular surfaces appear congruent. Oblique fracture at the mid humeral shaf t width one shaft width anterior displacement. REPORT SIGNED BY DR. Nelson Sanon Jason Barr MD XRAY ORDERABLE documented in this encounter Visit Diagnoses Diagnosis Unspecified displaced fracture of surgic al neck of right humerus, initial encounter for closed fracture - Primary documented in this encounter Administered Medications Inactive Administered Medications - up to 3 most recent administrations Medication Order MAR Action Action Date Dose Rate Site oxyCODONE-acetaminophen Given 08/21/2019 10:52 AM CDT 1 tablet (PERCOCET) 5-325 mg tablet 1-2 tablet 1-2 tablet, oral, ONCE, 1 dose, On Sat08/21/19 at 1100 documented in this encounter Active and Recently Administered Medications Times are shown in CDT. Scheduled Medication Order 08/19/2019 08/20/2019 08/21/2019 oxyCODONE-acetaminophen (PERCOCET) 5-325 mg tablet 1-2 tablet (C OMPLETED) 1052 (Given - Provider: Julia Torres RN) 1-2 tablet, oral, ONCE, 1 dose, Sat08/21/19 at 1100 documented in this encounter Care Teams Conservation Coordinator Relationship Specialty Start Date End Date Dada Garza [facility] PCP - Primary Care Clinic Family Medicine 08/20 [facility] [address] [place], [place] [address] Sim Velazquez MD PCP - General Family Medicine 08/21/[address] [place] [address] documented as of this encounter
--- OUTSIDE RECORDS SUMMARY | 2021-12-15 20:24 | XMS_ITS | Encounter Summary ---
:1960 Author Organization [facility] Address [address] [place] [address] Care Team Providers Name Role Phone [facility] Sim Velazquez MD Primary Care Provider Reason for Visit Reason Comments Fall Patient [place] this [place]. Encounter Details Date Type Department Care Team Description 08/21/2019 Office Visit [facility] Sim Velazquez, Dislocation of right [facility] [place] MD shoulder joint, [address] initial encounter [place] [phone] (Primary Dx) NISHA RODRIGUEZ [phone] (Wo rk) [id number] [phone] Social History Tobacco Use Types Packs/Day Years [...] in contact with No / Unsure 08/21/2019 8:58 AM CDT someone who was confirmed or suspected to have Coronavirus / COVID-19? documented as of this encounter Last Filed Vital Signs Vital Sign Reading Time Taken Comments Blood Pressure 122/80 08/21/2019 9:10 AM CDT Pulse 64 08/21/2019 9:10 AM CDT Temperature 36.4 ??C (97.5 ??F) 08/21/2019 9:10 AM CDT Respiratory Rate 20 08/21/2019 9:10 AM CDT Oxygen Saturation - - Inhaled Oxygen Concentration - - Weight - - Height - - Body Mass Index - - documented in this encounter Progress Notes Sim Velazquez MD - 08/21/2019 3:00 PM CDT Sayda Rosales is a 59 y.o. female here for - Right arm pain. Patient tripped on a wire and fell down 15 minutes ago and injured her right arm. [place] happened and was brought immediately to the clinic. Patient is unable to move her arm and she is in extreme pain. She is able to wiggle her fingers. Her pain is 10 x 10. She has not injured her arm before. Past Medical History: Diagnosis Date ??? Back injury Current Outpatient Medications: Medication Sig ??? budesonide 160 mcg-formoterol 4.5 mcg (SYMBICORT) 160-4.5 mcg/actuation Inhl HFAA inhaler Inhale2 puffs twice a day. ??? budesonide, conc: 0.5mg/2mL, (PULMICORT) 0.5 mg/2 mL Inhl nebulizer suspension 2 mL (0.5 mg) by Nebulization route once daily. ??? fluticasone (FLONASE) 50 mcg/actuation nasal spray Instill 2 sprays into EACH nare once daily. ??? ipratropium-albuterol (COMBIVENT RESPIMAT) 20-100 mcg/actuation Inhl Mist inhaler Inhale 1 puff four times a day as needed. ??? Miscellaneous Medical Supply Nebulizer with tubing and face mask Family History Problem Relation Name Age of Onset ??? Alzheimer's Disease Mother ??? Heart Disease Mother CABG ??? Asthma Mother ??? Cancer Sister absestos ??? Asthma Brother ??? Lung Cancer Brother liposarcoma ??? Asthma Son ??? High Blood Pressure Brother SYSTEM REVIEW: o General: not feeling well. o Respiratory: No difficulty breathing, no SOB or dyspnea on exertion, or cough o Gastrointestinal: no nausea/emesis, bowel problems ?? OBJECTIVE: Blood pressure 122/80, pulse 64, temperature 97.5 ??F (36.4 ??C), temperature source IR (Infrared), resp. rate 20. o General: appears stated age, is in apparent distress, is well nourished o Cardiovascular: RRR, S1 S2 normal, no murmur, peripheral pulses normal o Musculoskeletal: Tenderness with deformity of the right arm. Patient is unable to move her arm. Numbness over her fingers. Range of motion at the wrist joint and fingers is normal. Weakness of the hand. o Psych: judgement, insight, affect: normal. No signs of psychosis, depression, or anxiety A/P Cristal was seen today for fall. Diagnoses and all orders for this visit: Dislocation of right shoulder joint, initial encounter Discussed with the patient that she has dislocated her right shoulder versus fractured her humerus. She is in so much pain and unable to move her arm it is difficult to ascertain. I have asked her to follow-up with orthopedic urgent care versus emergency department. Due to numbness in her fingers and weakness of her hand I am worried about a neuromuscular compromise hence she needs to be seen in the emergency department. I offered to send her to the hospital via ambulance but patient is worried about the expenses. She has requested her friend to come to the clinic immediately and take her to the hospital. I did not want to waste time getting an x-ray of her arm since she is going to the hospital all imaging will be done on emergency basis. In the meantime I have given her 800 mg of ibuprofen to control her pain. The patient was actively involved in the decision making and verbalised understanding. All the questions were answered. Time spent with the pt 15m. More than 50% of the time for this visit was spent incounselling and or co-ordination of care. RTC in Sim Velazqeuz MD documented in this encounter Plan of Treatment Not on filedocumented as of this encounter Visit Diagnoses Diagnosis Dislocation of right shoulder joint, ini tial encounter - Primary documented in this encounter Care Teams Mica Plate Layer Relationship Specialty Start Date End Date Dada Garza [facility] PCP - Primary Care Clinic Family Medicine 08/[address] [place] [address] [place] [address] Sim Velazquez MD PCP - General Family Medicine 08/21/19 [address] [place] [address] documented as of this encounter
--- OUTSIDE RECORDS SUMMARY | 2021-12-15 20:24 | XMS_ITS | Encounter Summary ---
:1960 Author Organization [facility] Address [address] [place] [address] Care Team Providers Name Role Phone [facility] Unavailable Sim Velazquez MD Primary Care Provider Reason for Referral (Routine) - Closed Specialty Diagnoses / Procedures Referred By Contact Refer red To Contact Diagnoses Abnormal mammogram Lionel Purvis MD Procedures MAMMO PROB SOLV CALC ONLY RT [address] [place], [place] [address] Referral ID Status Reason Start Date Expiration Date Visits Requ ested Visits Authorized [id number] Closed 04/25/2020 04/25/2021 1 1 Reason for Visit (Routine) - Closed Specialty Diagnoses / Procedures Referred By Contact Refer red To Contact Diagnoses Abnormal mammogram Lionel Purvis MD Procedures MAMMO PROB SOLV CALC ONLY RT [address] [place], [place] [address] Referral ID Status Reason Start Date Expiration Date Visits Requ ested Visits Authorized [id number] Closed 04/25/2020 04/25/2021 1 1 Encounter Details Date Type Department Care Team Description 04/27/2020 Hospital En[facility] [address] [address] Social History Tobacco Use Types Packs/Day Years [...] obstructive pulmonary disease, unspecified COPD type (HCC) sertraline (ZOLOFT) 25 Take 1 tablet (25 mg) 90 tablet 3 04/18/2021 mg oral by mouth once daily. tabletIndications: Current moderate episode of major depressive disorder without prior episode (HCC) documented as of this encounter Plan of Treatment Not on filedocumented as of this encounter Procedures Procedure Name Priority Date/Time Associated Diagnosis Comme nts MAMMO PROB SOLV Routine 04/27/2020 3:34 PM Abnormal mammogram Results for this CALC ONLY RT CDT procedure are i n the results section. documented in this encounter Results MAMMO PROB SOLV CALC ONLY RT (04/27/2020 3:34 PM CDT) Anatomical Region Laterality Modality Breast Right Mammography Specimen (Source) Anatomical Collection Method Collection Time Re ceived Time Location / / Volume Laterality 04/27/2020 3:37 PM CDT Impressions 04/27/2020 3:38 PM CDT IMPRESSION: Grouped microcalcifications in the upper -inner quadrant of the right breast middle depth. These are indeterminate. Stereotactic biopsy is recommended. BREAST DENSITY: Heterogeneously dense FOLLOW-UP RECOMMENDATION: A stereotactic core biopsy BIRADS: BIRADS 4a - Suspicious - Low Brandi picion for Malignancy REPORT SIGNED BY DR. Master Mata Narrative 04/27/2020 3:38 PM CDT EXAM: MAMMOGRAM PROBLEM-SOLVING RIGHT DATE: 04/27/2020 3:23 PM. COMPARISON: Screening mammogram . CLINICAL DATA: Right breast calcificatio ns TECHNIQUE: True lateral, magnification o blique, and magnification craniocaudal views of the right breast were obtained FINDINGS: There are grouped calcifications in the upper inner quadrant of the right breast middle depth. Lionel Purvis MD MAMMO ORDERABLE documented in this encounter Visit Diagnoses Diagnosis Abnormal mammogram Abnormal mammogram, unspecified documented in this encounter Care Teams Inspector Soldering Relationship Specialty Start Date End Date [facility] PCP - Primary Care Clinic Family Medicine 08/[address] [place] [address] [place], [place] [address] Sim Velazquez MD PCP - General Family Medicine 08/21/[address] [place] [address] documented as of this encounter
--- OUTSIDE RECORDS SUMMARY | 2021-12-15 20:24 | XMS_ITS | Encounter Summary ---
:1960 Author Organization [facility] Address [address] [place] [address] Care Team Providers Name Role Phone Clinic, [facility] Unavailable [phone] None, Primary Care Provider Unavailable Reason for Visit Reason Comments Nasal pain Encounter Details Date Type Department Care Team Description 02/16/2015 Office Visit [facility] Amy Kasper Na jovanni pain ([facility] - Shakeel Robins APRN, C RESIDENT IN DIAGNOSTIC RADIOLOGY Dx) [address] [id number] [phone] Social History Tobacco Use Types Packs/Day Years Used Date Smoking Tobacco: Every Day Cigarettes 3 Smokeless Tobacco: Never Alcohol Use Standard Drinks/Week Comments No 0 (1 standard drink = 0.6 oz pure alcoho l) 3 pack of cigs weekly Sex Assigned at Date Recorded Not on file documented as of this encounter Last Filed Vital Signs Vital Sign Reading Time Taken Comments Blood Pressure 150/88 02/16/2015 1:34 PM HARVESTING CONTRACTOR Pulse 88 02/16/2015 1:34 PM HARVESTING CONTRACTOR Temperature 36.4 ??C (97.5 ??F) 02/16/2015 1:34 PM HARVESTING CONTRACTOR Respiratory Rate - - Oxygen Saturation 96% 02/16/2015 2:03 PM HARVESTING CONTRACTOR Inhaled Oxygen Concentration - - Weight - - Height - - Body Mass Index - - documented in this encounter Patient Instructions Patient InstructionsAmy Kasper NP - 02/16/2015 1:57 PM CST Use flonase 2 puffs on each nostril daily, and take claritin/zyrtec daily. Use saline spray to clearyour nose first before using flonase. It will take 3-5 days for flonase to work, to reduce the runnynose. Cut down the smoking, call [address] [place] [address] for free sample. Drinks at least 6-8 glasses of water and use cool humidifier. Use vaseline and aquaphor inside your nostrils. Go see your [facility] provider in 3 days for follow up, or sooner if worsening ESTING CONTRACTOR documented in this encounter Progress Notes Amy Kasper NP - 02/16/2015 1:36 PM CST Subjective CC: Nasal pain HPI: Cristal is a 54 y.o. female presents w/ persistent 5 days of nasal burning. Started with URI 4 months ago. Other symptoms include clear nasal discharge, postnasal drip, some coughing, SOB, and occosional teeth sore. Has tried saline spray w/ some improvement. Smokes 10 cigarettes/day for many years.Has h/o sinusitis years ago. Immunization is not up to date. Denies fever, chills, wheezing, n/v/d, CP, exposure to sick people, deviated septum, or nasal surgery. Meds/ADR: reviewed PMH: Past Medical History Diagnosis Date ??? Back injury ROS: General: No fever HEENT: See HPI Resp: Has some cough GI: No upset stomach, vomiting, or diarrhea Derm: No rashes OBJECTIVE: Blood pressure 150/88, pulse 88, temperature 97.5 ??F (36.4 ??C), temperature source Oral, SpO2 95 %. General: smells of cigarette smoke, appears tired and in NAD HEENT: Eyes teary w/ venous injection or cilliary flush. Left TM clear & intact w/ erythema or effusion. Right TM unvisualized due to cerumen. Nasal passage dry and pale w/o polyp, lesions, or hemorrhage. Sinuses non-tender to palpate. Oropharynx erythematous and wet w/o lesion or exudate. Tonsilsbarely visible w/o lesion or exudate. Head: Normal cephalic, atraumatic Neck: No LAD. Lungs: left posterior lung base crackles. Otherwise, CTA bilaterally w/o wheezing,or rales. Normal respiratory rate and no retractions CV: Regular S1 S2 and rate without murmurs, clicks, gallops or rubs. Radial pulses +3 and equal and no pitting edema. GI: soft, nontender, normal bs in all 4 quadrants, negative rebound, negative guarding, and no HSM. MS: ROM grossly intact. Skin: warm and dry without rashes seen. No swelling or ecchymosis. Neuro: Alert and oriented, makes good eye contact, is directable and has appropriate responses to questions, no pressured speech, flight of thought and has good judgment and insight. ASSESSMENT: Nasal pain/burning PLAN: - discussed and reassured pt that she might have allergic rhinitis. - instructed to use OTC flonase and claritin/zyrted daily to reduce runny nose. - Strongly recommended not to smoke. Gave [employer] number. - instructed remedies to reduce nasal pain. - recommended to follow up w/ PCP in 3 days. - if symptoms worsening (e.g. Headache with n/v, neck pain, changes in vision), then go to PCP or UC. Patient verbalized understanding and agreed with the plan. Amy Kasper APRN [facility] [phone] ESTING CONTRACTOR documented in this encounter Plan of Treatment Not on filedocumented as of this encounter Visit Diagnoses Diagnosis Nasal pain - Primary Other diseases of nasal cavity and sinus es documented in this encounter Care Teams Car Ferry Master Relationship [facility]ty [facility] 06/26/16 [address] [id number] None, PCP - General 04/13/14 06/26/16 documented as of this encounter
--- OUTSIDE RECORDS SUMMARY | 2021-12-15 20:24 | XMS_ITS | Encounter Summary ---
:1960 Author Organization [facility] Address [address] [place] [address] Care Team Providers Name Role Phone [facility] Unavailable Sim Velazquez MD Primary Care Provider Reason for Referral (Routine) - Closed Specialty Diagnoses / Procedures Referred By Contact Refer red To Contact Diagnoses Breast calcifications on mammogram Master Mata MD Procedures MAMMO BX STEREO W CLIP RT [address] [place], [place] [address] Referral ID Status Reason Start Date Expiration Date Visits Requ ested Visits Authorized [id number] Closed 04/27/2020 04/27/2021 1 1 Reason for Visit (Routine) - Closed Specialty Diagnoses / Procedures Referred By Contact Refer red To Contact Diagnoses Breast calcifications on mammogram Master Mata MD Procedures MAMMO BX STEREO W CLIP RT [address] [place], [place] [address] Referral ID Status Reason Start Date Expiration Date Visits Requ ested Visits Authorized [id number] Closed 04/27/2020 04/27/2021 1 1 Encounter Details Date Type Department Care Team Description 05/02/2020 Hospital Encounter [facility] [address] [address] Social History Tobacco Use Types [...] Sign Reading Time Taken Comments Blood Pressure - - Pulse - - Temperature - - Respiratory Rate - - Oxygen Saturation - - Inhaled Oxygen Concentration - - Weight 94.3 kg (208 lb) 05/02/2020 3:12 PM CDT Height - - Body Mass Index 38.66 04/27/2020 10:16 AM CDT documented in this encounter Medications at Time of [...] episode (HCC) documented as of this encounter Progress Notes Nataliia Sexton - 05/02/2020 2:00 PM CDT Cristal was seen at [facility] for a stereotactic biopsy of her RIGHT breast for calcifications found on mammogram. The procedure was verbally explained to her and she was consented prior to the biopsy. The biopsy was performed by Dr. Gonzales . A Hydromark T3 clip was placed atthe biopsy site, pressure was held to the breast for 10 minutes, Steri-strips, sterile gauze, Tegaderm & ice pack were applied to the biopsy site. A RIGHT breast gentle mammogram was performed to confirm the marking clip placement. Patient tolerated the procedures well with no complications. Aftercare instructions were reviewed with her and also given to her in written format. The patient stated s he understands the instructions and will call the numbers given with any questions or concerns. I also notified her that we will call her with today's pathology results and follow-up recommendations assoon as they become available. RT Maddie(R)(M) - Breast Health Patient Navigator - [facility]. documented in this encounter Plan of Treatment Not on filedocumented as of this encounter Procedures Procedure Name Priority Date/Time Associated Diagnosis Comme nts MAMMO BX STEREO W Routine 05/02/2020 2:49 PM Breast calcificat ions Results for this CLIP RT CDT on mammogram procedure are i n the results section. documented in this encounter Results MAMMO BX STEREO W CLIP RT (05/02/2020 2:49 PM CDT) Anatomical Region Laterality Modality Breast Right Mammography Specimen (Source) Anatomical Collection Method Collection Time Re ceived Time Location / / Volume Laterality 05/03/2020 4:18 PM CDT Addenda Addendum by Kendrick Yuen MD on 4:19 PM CDT ADDENDUM #1 IMPRESSION: Final pathology describes be nign breast tissue with benign fibroadenoma and sclerosing adenosis. Mi crocalcifications identified. This pathology is concordant with the imaging . Routine screening recommended. Impressions 05/02/2020 2:57 PM CDT : STEREOTACTIC GUIDED BIOPSY A stereotactic guided biopsy of the grou ped calcifications located in the the right breast at the 10 o'clock posit ion was successful. ??Waiting for pathology results. ??A final report will be issued when these become available. REPORT SIGNED BY Delia Gonzales MD Narrative 05/02/2020 2:57 PM CDT EXAM: MAMMO BX STEREO W CLIP RT REASON FOR EXAM: Breast calcifications on mammogram COMPARISON: ??Compared to: 04/27/2020 MA MMO PROB SOLV CALC ONLY RT, 04/22/2020 MAMMO SALVADOR SCREENING BI, and 11/03/2018 MAMMO DIGITAL SCREENING BI FINDINGS: The risks, benefits and alternatives dis cussed with the patient. ??A stereotactic guided biopsy was performed on the grouped calcifications located in the right breast at the 10 o' clock position and middle depth. ?? This was described on the previous mammo gram report. ??The skin was prepped in the usual manner. ??Local anesthetic was administered to the access site. ??The abnormality was approached f rom the CC from above aspect. ??A 8 gauge needle was placed adjacent to the abnormality through an introducer device under computer guidance and confi rmatory stereotactic mammography images were obtained to document needed placement. ??Once the needle was documented to be in the correct location , 9 specimens were obtained using the [employer] system. ??A clip was inserte d into the biopsy cavity. ??Post procedure digital mammographic imaging d emonstrates the clip at the targeted area. ??The specimens were sent to the lab for pathological analysis. Master Mata MD MAMMO ORDERABLE documented in this encounter Visit Diagnoses Diagnosis Breast calcifications on mammogram Other (abnormal) findings on radiologica l examination of breast documented in this encounter Administered Medications Inactive Administered Medications - up to 3 most recent administrations Medication Order MAR Action Action Date Dose Rate Site 0.9% buffered lidocaine Given 05/02/2020 2:30 PM CDT 8 mL Right Breast 1-20 mL, Subcutaneous, INTRA-PROCEDURE ONE TIME DOSE NEEDED, 1 dose, Starting on Sat05/02/20 at 1514, Until Sat05/02/20 at 1430, per procedure lidocaine 1%- EPINEPHrine 1:100,000 Given 05/02/2020 3:18 PM CDT 20 mL Right Breast (XYLOCAINE-EPINEPHRINE) injection 30 mL 30 mL, Subcutaneous, INTRA-PROCEDURE ONE TIME DOSE NEEDED, 1 dose, Starting on Sat05/02/20 at 1514, Until Sat05/02/20 at 1518, per procedure documented in this encounter Care Teams Automotive Sales Executive Relationship Specialty Start Date End Date [facility] - Primary Care Clinic Family Medicine 08/20 [place] [address] [place] [address] Sim Velazquez MD PCP - General Family Medicine 08/21/19 [address] [place] [address] documented as of this encounter
--- OUTSIDE RECORDS SUMMARY | 2021-12-15 20:24 | XMS_ITS | Encounter Summary ---
:1960 Author Organization [facility] Address [address] [place] [address] Care Team Providers Name Role Phone [facility] - Unavailable Unavailable Ron Padilla MD, Karla Primary Care Provider Encounter Details Date Type Department Care Team Description 12/02/2018 Travel Social History Tobacco Use Types Packs/Day [...] on filedocumented in this encounter Care Teams Construction Manager Relationship Specialty Start Date End Date [facility] PCP - Primary Care Clinic Family Medicine 06/27/16 08/20/19 [facility] - Karla Velasquez MD PCP - General Family Medicine 09/02/17 08/20/[address] [place] [address] documented as of this encounter
--- OUTSIDE RECORDS SUMMARY | 2021-12-15 20:24 | XMS_ITS | Encounter Summary ---
:1960 Author Organization [facility] Address [address] [place] [address] Care Team Providers Name Role Phone [facility] Unavailable Sim Velazquez MD Primary Care Provider Reason for Visit Reason Comments Mental health visit Counseling (Routine) - Closed Specialty Diagnoses / Procedures Referred By Contact Refer red To Contact Diagnoses Current moderate episode of major depressive disorder without prior episode (HCC) Sim Velazquez MD [address] [place] [address] Referral ID Status Reason Start Date Expiration Date Visits V isits Requested Authorized [id number] Closed Specialty 04/27/2020 04/27/2021 1 1 Services Required Encounter Details Date Type Department Care Team Description 05/17/2020 Virtual Visit [facility] Ramonita Juares moderate Mental Health M, 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 without prior episode [address] [place] (HCC) (Primary Dx) [address] [phone] Social History Tobacco Use Types Packs/Day Years [...] documented as of this encounter Progress Notes KATIE Aguilar - 05/17/2020 10:00 AM CDT This provider spoke to patient via phone for her initial mental health appointment.??Provider reviewed informed consent, confidentiality and duty to warn, and the provider's experience and practice. Patient??constented??to mental health??services with this provider.??We engaged in discussion related to her mental health needs and engagement in psychotherapy. Patient reported experiencing stressors during covid due to her work situation and ongoing political climate. 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 She said she started taking m edication to manage her mental health symptoms. Patient reported being able to manage her mental health symptoms without ongoing psychotherapy at this time. She agreed to call the clinic to schedule anappointment with this provider if she needs additional mental health support. documented in this encounter Plan of Treatment Scheduled Referrals Name Type Priority Associated Diagnoses Order S chedule REFERRAL MENTAL HEALTH Referral Routine Current moderate e pisode Ordered: 04/27/2020 PRIMARY CARE of major depressive disorder without prior episode (HCC) documented as of this encounter Visit Diagnoses Diagnosis Current moderate episode of major depres sive disorder without prior episode (HCC) - Primary documented in this encounter Care Teams Cage/Vault Supervisor Relationship Specialty Start Date End Date Dada Garza PCP - Primary Care Clinic Family Medicine 08/20 [facility] [address] [place] [address] Sim Velazquez MD PCP - General Family Medicine 08/21/[address] [place] [address] documented as of this encounter
--- OUTSIDE RECORDS SUMMARY | 2021-12-15 20:24 | XMS_ITS | Encounter Summary ---
:1960 Author Organization [facility] Address [address] [place] [address] Care Team Providers Name Role Phone [facility] Unavailable Sim Velazquez MD Primary Care Provider Reason for Referral (Routine) - Closed Specialty Diagnoses / Procedures Referred By Contact Refer red To Contact Diagnoses Current moderate episode of major depressive disorder without prior episode (HCC) Sim Velazquez MD Procedures VITAMIN D TOTAL (25-HYDROXY) [address] [place] [address] Referral ID Status Reason Start Date Expiration Date Visits Requ ested Visits Authorized [id number] Closed 04/27/2020 04/27/2021 1 1 (Routine) - Closed Specialty Diagnoses / Procedures Referred By Contact Refer red To Contact Diagnoses Annual physical exam Sim Velazquez MD Procedures LIPID PROFILE CASCADE [address] [place] [address] Referral ID Status Reason Start Date Expiration Date Visits Requ ested Visits Authorized [id number] Closed 04/27/2020 04/27/2021 1 1 (Routine) - Closed Specialty Diagnoses / Procedures Referred By Contact Refer red To Contact Diagnoses Current moderate episode of major depressive disorder without prior episode (HCC) Sim Velazquez MD Procedures THYROID CASCADE [address] [place] [address] Referral ID Status Reason Start Date Expiration Date Visits Requ ested Visits Authorized [id number] Closed 04/27/2020 04/27/2021 1 1 Counseling (Routine) - Closed Specialty Diagnoses / Procedures Referred By Contact Refer red To Contact Diagnoses Current moderate episode of major depressive disorder without prior episode (HCC) Sim Velazquez MD [address] [place] [address] Referral ID Status Reason Start Date Expiration Date Visits V isits Requested Authorized [id number] Closed Specialty 04/27/2020 04/27/2021 1 1 Services Required Consultation (Routine) - Closed Specialty Diagnoses / Procedures Referred By Contact Refer red To Contact Gastroenterology Diagnoses Screening for colon cancer Sim Velazquez MD [facility] - [address] [place] [address] [address] [place] [address] Referral ID Status Reason Start Date Expiration Date Visits V isits Requested Authorized [id number] Closed Specialty 04/27/2020 04/27/2021 1 1 Services Required Question Answer Indication for test? Routine initial screen 50+ Comments [facility] will be conta cting you to schedule your appointment. If you have immediate needs or questions re garding this appointment, please call [facility] at [phone]. Reason for Visit Reason Comments Physical Encounter Details Date Type Department Care Team Description 04/27/2020 Office Visit [facility] Sim Velazquez, Annual physical exam (Primary Dx); Clinic - Shakeel Garza MD Screening for colon cancer; [address] Postmenopausal; [place] Shakeel Garza, NISHA [address] Closed fracture of right upper extremity with delayed healing, subsequent encounter; NISHA RODRIGUEZ [phone] (Wo rk) Current moderate episode of major depres sive disorder without prior episode ([facility]) [address] [phone] Social History Tobacco Use Types Packs/Day Years [...] Sign Reading Time Taken Comments Blood Pressure 130/80 04/27/2020 10:51 AM CDT Pulse 86 04/27/2020 10:16 AM CDT Temperature - - Respiratory Rate - - Oxygen Saturation 96% 04/27/2020 10:16 AM CDT Inhaled Oxygen Concentration - - Weight 94.3 kg (208 lb) 04/27/2020 10:16 AM CDT Height 156.2 cm (5' 1.5) 04/27/2020 10:16 AM CDT Body Mass Index 38.66 04/27/2020 10:16 AM CDT documented in this encounter Patient Instructions Patient InstructionsMrrebecca Velazquez MD - 04/27/2020 10:00 AM CDT Depression GENERAL INFORMATION: What is depression? Depression is a medical condition that causes feelings of sadness or hopelessness that do not go away. Depression may cause you to lose interest in things you used to enjoy. These feelings may interfere with your daily life. What causes or increases my risk for depression? Depression may be caused by changes in brain chemicals that affect your mood. Your risk of depression may be higher if you have any of the following: Stressful events such as the of a loved one, unemployment, childhood trauma, divorce, or domestic abuse A chronic medical condition such as diabetes, heart disease, or cancer Parents, siblings, or other family members with a history of depression Drug or alcohol abuse What are the signs and symptoms of depression? Appetite changes, or weight gain or loss Trouble going to sleep or staying asleep, or sleeping too much Fatigue or lack of energy Feeling restless, irritable, or withdrawn Feeling worthless, hopeless, discouraged, or very guilty Trouble concentrating, remembering things, doing daily tasks, or making decisions Thoughts about hurting or killing yourself How is depression diagnosed? Your healthcare provider will ask about your symptoms and how long you have had them. He will ask if you have any family members with depression. He may also ask if you have had stressful events in your life. Tell him if you have other health conditions and the names of any medicines you take. How is depression treated? Therapy may be used to treat your depression. A therapist will help you learn to cope with your thoughts and feelings. This can be done alone or in a group. It may also be done with family members or asignificant other. Antidepressant medicine may be given to improve or balance your mood. You may need to take this medicine for several weeks before you begin to feel better. Tell your healthcare provider about any side effects or problems you have with your medicine. Sometimes the type or amount of medicine may need cory changed. How can I manage depression? Get regular physical activity. Try to exercise for 30 minutes, 3 to 5 days a week. Work with your healthcare provider to develop an exercise plan that you enjoy. Physical activity may improve your symptoms. Get enough sleep. Create a routine to help you relax before bed. Try to go to bed and wake up at thesame time every day. Sleep is important for emotional health. Eat a variety of healthy foods from all of the food groups. A healthy meal plan is low in fat, salt,and added sugar. Ask your healthcare provider for more information about a meal plan that is right for you. Avoid or limit alcohol. Ask your healthcare provider how much alcohol is safe for you to drink. A drink of alcohol is 12 ounces of beer, 5 ounces of wine, or 1?? ounces of liquor. When should I contact my healthcare provider? Your medicine is not helping to improve your mood. You cannot make it to your next appointment. You have questions or concerns about your condition or care. When should I seek immediate care or call 911? You think about harming yourself or someone else. CARE AGREEMENT: You have the right to help plan your care. Learn about your health condition and how it may be treated. Discuss treatment options with your caregivers to decide what care you want to receive. You always have the right to refuse treatment. The above information is an manager medicaid only. It is not intended as medical advice for individual conditions or treatments. Talk to your doctor, nurse or pharmacist before following any medical regimen to see if it is safe and effective for you. ?? 2015 [employer]. Information is for End User's use only and may not be sold, redistributed or otherwise used for commercial purposes. All illustrations and images included in CareNotes?? are the copyrighted property of [employer] or [employer] Depression: Treatment, What You Can Do & Expect How is Depression treated? Antidepressant medicine may be given to improve or balance your mood. You may need to take this medicine for several weeks before you begin to feel better. Tell your healthcare provider about any side effects or problems you have with your medicine. Sometimes the type or amount of medicine may need cory changed. Combination treatment, such as therapy and medication, is most effective for many people. Therapy may be used to treat your depression. A therapist will help you learn to cope with your thoughts and feelings. This can be done alone or in a group. It may also be done with family members or with a significant other. A mental health professional can help determine which type of therapy is most likely to work for you. What You Can Do: Tools to Improve Mood 1. Exercise: Try to exercise for 30 minutes 3-5 days/week. Work with your healthcare provider to develop an exercise plan that you enjoy. 2. Sleep: Depression disrupts sleep and poor sleep can cause depression or make it worse. Create a routine to help you relax before bed. Try to go to bed and wake up at the same time every day. Cut back caffeine. Don't deal with stressful situations right before bedtime. Don't check the clock. 3. Eat healthy foods. Eat a variety of healthy foods from all of the food groups. A healthy meal plan is low in fat, salt and added sugar. Ask your healthcare provider for more information about a planthat will work for you. 4. Avoid or limit alcohol or drugs. Alcohol & drugs can often contribute to symptoms of depression. Ask your healthcare provider how much alcohol is safe for you to drink. Cut back or stop the use of recreational drugs. 5. Get Active. A mauro feature of depression is that it tends to make people lose interest in the things they used to enjoy. Forcing yourself to do activities that you find pleasurable is one of the bestways to improve mood. 6. Handling emotions. Many people who are depressed find they experience intense feelings, or sometimes no feelings at all. Expressing these emotions in a healthy way can be helpful (talking to a friend, journaling, etc.). A mental health professional can also help you learn how to cope with difficultemotions. 7. Handling thoughts. Negative thoughts often make depression worse. Learn to identify negative thought patterns that contribute to feelings of hopelessness and helplessness. Try to think as accuratelyas possible about your situation. Learning to be aware of your thoughts can be the first step to changing negative thought patterns. What you can expect from us: ?? Regular (4 weeks) follow up from your clinic to find out how you're doing ?? A follow up office visit if you have started an antidepressant medication ?? A referral to a behavioral health specialist if your provider thinks this would be useful ?? Enrollment in your clinic's Care Coordination program if you would benefit ?? Possible lab appointment for blood draw to look at potential contributing factors documented in this encounter Progress Notes Sim Velazquez MD - 04/27/2020 10:00 AM CDT SUBJECTIVE: Cristal Rosales is a 60 y.o. female who presents today for annual routine preventative health maintenance visit. Concerns: patient has no other health concerns today. Gynecologic Concerns: Last pap 2017. She is not due for a pap [...] BMI today is Body mass index is 38.66 kg/m??.. She is obese (BMI > 30). [...] ??? Quit date: 06/18/2017 ??? Years since quittin.8 Smokeless Tobacco Never Used Tobacco Comment doesn't smoke in her house Immunizations: She is not up to date on immunizations. Refills: She does need refills today. Current Medications: Current Outpatient Medications on File Prior to Visit Medication Sig Dispense Refill ??? budesonide 160 mcg-formoterol 4.5 mcg (SYMBICORT) 160-4.5 mcg/actuation Inhl HFAA inhaler INHALE2 PUFFS BY MOUTH TWICE DAILY 30.6 g 3 ??? budesonide, conc: 0.5mg/2mL, (PULMICORT) 0.5 mg/2 mL Inhl nebulizer suspension 2 mL (0.5 mg) by Nebulization route once daily. 1 Box 12 ??? COMBIVENT RESPIMAT 20-100 mcg/actuation Inhl Mist inhaler INHALE ONE PUFF BY MOUTH FOUR TIMES DAILY NEEDED 4 g 0 ??? fluticasone (FLONASE) 50 mcg/actuation nasal spray Instill 2 sprays into EACH nare once daily. ??? Miscellaneous [employer] Nebulizer with tubing and face mask 1 each 0 No current facility-administered medications on file prior to visit. Allergies: Mold (juan) Past Medical History: Past Medical History: Diagnosis Date ??? Back injury ROS: see HPI; otherwise denies HEENT, NECK, RESP, CARDIAC, GI, , NEURO or PSYCH Sx OBJECTIVE: BP (!) 148/82 Pulse 86 Ht 1.562 m (5' 1.5) Wt 94.3 kg (208 lb) SpO2 96% No BMI 38.66 kg/m?? General - Alert & oriented, pleasant [...] Diagnoses and all orders for this visit: Annual physical exam - GLUCOSE METER (HEMOCUE) OP - LIPID PROFILE CASCADE Screening for colon cancer - REFERRAL COLONOSCOPY: [facility] Postmenopausal - XR BONE DENSITY-SPINE & HIP; Future Closed fracture of right upper extremity with delayed healing, subsequent encounter - XR BONE DENSITY-SPINE & HIP; Future Current moderate episode of major depressive disorder without prior episode (HCC) - sertraline (ZOLOFT) 25 mg oral tablet; Take 1 tablet (25 mg) by mouth once daily. - REFERRAL MENTAL HEALTH PRIMARY CARE - THYROID CASCADE - VITAMIN D TOTAL (25-HYDROXY) - CBC (HGB,HCT,WBC,RBC,PLATELET) OP Reviewed recommendations with patient and handout given addressing diet, exercise, cancer prevention, vaccinations, screening recommendations, and other preventative cares. Return to clinic in 1 year or sooner as needed. Sim Velazquez MD Sim Velazquez MD - 04/27/2020 10:00 AM CDT SUBJECTIVE: Cristal Rosales is an 60 y.o. female who presents for new evaluation and treatment of of depression Patient is stressed under the Covid situation. She [place] the [place] and injured her right shoulder. Patient was brought to the clinic in extreme pain. From the clinic I sent her to the hospital for further management. She met with the Ortho surgeon at [facility] who mentioned that she had 2 fractures, one in the shoulder andone in the humerus. It was a difficult case since she was referred to [facility]. She met with the orthopedic surgeon there who had to operate on her twice. The healing is delayed. She is able to get her mobility back but it is healing very slowly and that is bothering her a lot. Has managed to stay away from smoking. She underwent hypnosis and quit smoking immediately. Since then she has not smo ked again for the past 8 months She gets thoughts of but denies any suicidal ideation Symptoms first began 8 months ago and have been unchanged since that time. She has symptoms of depression that include depressed mood, weight gain, fatigue, feelings of worthlessness/guilt, hopelessness. Comorbid anxiety symptoms: palpitations, sweating, racing thoughts. 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 Due to the Covid she has not had any income. She had to move back into the house of her ex- which is stressing her out. And she fell down and broke her right arm and shoulder at [address]. The healing is slow. Previous treatments attempted: none. Previous meds tried: none Denies suicidal or homicidal intent. Current medications, past medical history and family history have been reviewed and updated in the record-see EPIC. Allergies Allergen Reactions ??? Mold (Juan) Runny Nose ROS: General:Overall feels well, Denies fever, chills, nightsweats or unplanned wt loss. Neurologic: Denies weakness, paresthesias, vertigo, difficulty w/ balance or gait. Endocrine: Negative for cold or heat intolerance, polyuria, polydipsia and goiter. GI: No chronic abdominal pain OBJECTIVE: BP 130/80 Pulse 86 Ht 1.562 m (5' 1.5) Wt 94.3 kg (208 lb) SpO2 96% No BMI 38.66 kg/m?? General appearance: alert, cooperative Neuro: Awake, alert and oriented x 3 Affect and Behavior: good grooming, full facial expressions, normal speech pattern and content, normal thought patterns, normal perception, good insight, normal reasoning ASSESSMENT: 1. Annual physical exam 2. Screening for colon cancer 3. Postmenopausal 4. Closed fracture of right upper extremity with delayed healing, subsequent encounter 5. Current moderate episode of major depressive disorder without prior episode (HCC) Cristal was seen today for physical. Diagnoses and all orders for this visit: Annual physical exam - GLUCOSE METER (HEMOCUE) OP - LIPID PROFILE CASCADE Screening for colon cancer - REFERRAL COLONOSCOPY: [facility] Postmenopausal - XR BONE DENSITY-SPINE & HIP; Future; Expected date: 05/28/2020 Closed fracture of right upper extremity with delayed healing, subsequent encounter - XR BONE DENSITY-SPINE & HIP; Future; Expected date: 05/28/2020 Current moderate episode of major depressive disorder without prior episode (HCC) - sertraline (ZOLOFT) 25 mg oral tablet; Take 1 tablet (25 mg) by mouth once daily., Disp-90 tablet,R-3, e-Prescribe Dispense: 90 tablet; Refill: 3 - REFERRAL MENTAL HEALTH PRIMARY CARE - THYROID CASCADE - VITAMIN D TOTAL (25-HYDROXY) - CBC (HGB,HCT,WBC,RBC,PLATELET) OP PLAN: 1) Rx: Zoloft 2) Labs: cbc, tsh 3) Recommended counseling. 4) Follow up: 4 weeks by in clinic appointment. Options for treatment and follow-up care were reviewed with the patient. Cristal Bobby was engaged andactively involved in the decision making process. She verbalized understanding of the options discussed and was satisfied with the final plan. Sim Velazquez MD documented in this encounter Plan of Treatment Scheduled Referrals Name Type Priority Associated Diagnoses Order S chedule REFERRAL COLONOSCOPY: Referral Routine Screening for colon Ordered: 04/27/2020 [facility] cancer REFERRAL MENTAL HEALTH Referral Routine Current moderate e pisode Ordered: 04/27/2020 PRIMARY CARE of major depressive disorder without prior episode (HCC) documented as of this encounter Procedures Procedure Name Priority Date/Time Associated Diagnosis Comme nts GLUCOSE METER Routine 04/27/2020 11:02 AM Annual physical exam Results for this (HEMOCUE) OP CDT procedure are i n the results section. VITAMIN D TOTAL Routine 04/27/2020 11:02 AM Current moderate R esults for this (25-HYDROXY) CDT episode of major procedure a re in depressive disorder the resu lts without prior section. episode (HCC) CBC Routine 04/27/2020 11:02 AM Current moderate Resu lts for this (HGB,HCT,WBC,RBC,PL CDT episode of major proc edure are in ATELET) OP depressive disorder the resu lts without prior section. episode (HCC) LIPID PROFILE Routine 04/27/2020 11:02 AM Annual physical exam Results for this CASCADE CDT procedure are i n the results section. THYROID CASCADE Routine 04/27/2020 11:02 AM Current moderate R esults for this CDT episode of major procedure a re in depressive disorder the resu lts without prior section. episode (HCC) documented in this encounter Results CBC (HGB,HCT,WBC,RBC,PLATELET) OP (04/27/2020 11:02 AM CDT) P athologist Signature WBC OP 7.0 4.3 - 10.8 04/27/2020 [facility] K/UL 11:11 AM CDT [facility] RBC OP 4.72 4.20 - 04/27/2020 [facility] 5.40 M/UL 11:11 AM CDT [facility] HEMOGLOBIN OP 14.2 12.0 - 04/27/2020 [facility] 16.0 gm/dL 11:11 AM T [facility] HEMATOCRIT OP 42.1 36.0 - 04/27/2020 [facility] 48.0 % 11:11 AM [facility] MCV OP 89 80 - 100 04/27/2020 [facility] fl 11:11 AM CDT [facility] MCH OP 30.1 27.0 - 04/27/2020 [facility] 33.0 pg 11:11 AM CDT [facility] MCHC OP 33.7 33.0 - 04/27/2020 [facility] 36.0 gm/dL 11:11 AM T [facility] RDW OP 13.0 11.5 - 04/27/2020 [facility] 14.5 % 11:11 AM [facility] PLATELET COUNT 289 150 - 400 04/27/2020 [facility] OP K/UL 11:11 AM T [facility] MPV OP 9.4 6.5 - 12.0 04/27/2020 [facility] 11:11 AM [facility] Specimen Anatomical Collection Method / Collection Time Recei manny Time (Source) Location / Volume Laterality Blood Venipuncture / 04/27/2020 11:02 Unknown AM CDT 11:02 AM CDT Sim Velazquez MD HEMATOLOGY ORDERABLE Performing Organization Address City/State/ZIP Code Phon e Number [facility] [address] [place] [id number] [place] VITAMIN D TOTAL (25-HYDROXY) (04/27/2020 11:02 AM CDT) P athologist Signature VITAMIN D 35 30 - 90 CENT[facility]UR XPT 04/27/2020 [facility] TOTAL ng/mL ANALYZER 4:15 PM CDT HEALTH (25-HYDROXY) LABORATORY Specimen Anatomical Collection Method / Collection Time Recei manny Time (Source) Location / Volume Laterality Blood Venipuncture / 04/27/2020 11:02 1 Unknown AM CDT 11:02 AM CDT Sim Velazquez MD CHEMISTRY ORDERABLE Performing Organization Address City/State/ZIP Code Phon e Number [facility] [address] [place] [address] [phone] LABORATORY (ABNORMAL) LIPID PROFILE CASCADE (04/27/2020 11:02 AM CDT) [facility] Method Time Signature SPECIMEN TYPE Fasting 04/27/2020 [facility] 4:22 PM T HEALTH LABORATORY CHOLESTEROL 214 (H) <200 04/27/2020 [facility] mg/dL 4:22 PM T [facility] LABORATORY TRIGLYCERIDES 110 <150 04/27/2020 [facility] PROFILE mg/dL 4:22 PM T [facility] LABORATORY LDL CHOL, CALC 125 (H) <100 04/27/2020 [facility] mg/dL 4:22 PM T [facility] LABORATORY HDL CHOLESTEROL 67 >40 mg/dL 04/27/2020 [facility] L 4:22 PM CDT HEALTH LABORATORY CHOL/HDL RATIO 3.2 0.0 - 4.9 04/27/2020 [facility] 4:22 PM CDT HEALTH LABORATORY Specimen Anatomical Collection Method / Collection Time Recei manny Time (Source) Location / Volume Laterality Blood Venipuncture / 04/27/2020 11:02 1 Unknown AM CDT 11:02 AM CDT Narrative [facility] LABORATORY - 04/27 4:22 PM CDT LDL CHOLESTEROL REFERENCE RANGES: (FOR PATIENTS W/O HEART DISEASE) <100 mg/dL = Optimal 100-129 mg/dL = Near/Above Optimal 130-159 mg/dL = Borderline High 160-189 mg/dL = High >/= 190 mg/dL = Very High Sim Velazquez MD CHEMISTRY ORDERABLE Performing Organization Address City/[facility]/ZIP [facility] Phon e Number [facility] [address] [facility] [place] [address] LABORATORY THYROID CASCADE (04/27/2020 11:02 AM CDT) athologist Signature TSH 1.480 0.358 - 04/27/2020 [facility] 3.740 4:22 PM CDT HEALTH UIU/mL LABORATORY Specimen Anatomical Collection Method / Collection Time Recei manny Time (Source) Location / Volume Laterality Blood Venipuncture / 04/27/2020 11:02 1 Unknown AM CDT 11:02 AM CDT Sim Velazquez MD CHEMISTRY ORDERABLE Performing Organization Address [facility]/ZIP [facility] Phon [place] Number [facility] [address] [facility] [place] [address] [phone] LABORATORY GLUCOSE METER (HEMOCUE) OP (04/27/2020 11:02 AM CDT) athologist Signature GLUCOSE CASUAL 88 60 - 100 04/27/2020 [facility] OP mg/dL 11:11 AM CDT [facility] [place] GLUCOSE Fasting 04/27/2020 [facility] FASTING 11:11 AM CDT [facility] COMMENT OP - [place] Specimen Anatomical Collection Method / Collection Time Recei manny Time (Source) Location / Volume Laterality Blood Venipuncture / 04/27/2020 11:02 1 Unknown AM CDT 11:02 AM CDT Sim Velazquez MD CHEMISTRY ORDERABLE Performing Organization Address City/[facility] Phon e Number [facility] [address] [place] [address] [facility] documented in this encounter Visit Diagnoses Diagnosis Annual physical exam - Primary Routine general medical examination at a health care facility Screening for colon cancer Special screening for malignant neoplasm s, colon Postmenopausal Asymptomatic postmenopausal status (age- related) (natural) Closed fracture of right upper extremity with delayed healing, subsequent encounter Current moderate episode of major depres sive disorder without prior episode (HCC) documented in this encounter Care Teams Natural Resources Extension Educator Relationship Specialty Start Date End Date Dada Garza [facility] PCP - Primary Care Clinic Family Medicine 08/20 [facility] [address] [place] [address] Sim Velazquez MD PCP - General Family Medicine 08/21/19 [address] [place] [address] documented as of this encounter
--- OUTSIDE RECORDS SUMMARY | 2021-12-15 20:24 | XMS_ITS | Encounter Summary ---
:1960 Author Organization [facility] Address [address] [place] [address] Care Team Providers Name Role Phone [facility] - Unavailable Unavailable Ron Padilla MD, Karla Primary Care Provider Reason for Referral (Routine) - Closed Specialty Diagnoses / Procedures Referred By Contact Refer red To Contact Diagnoses Screening for breast cancer Karla Velasquez [place] [address] [place] [address] Referral ID Status Reason Start Date Expiration Date Visits Requ ested Visits Authorized [id number] Closed 10/30/2018 10/30/2019 1 1 Reason for Visit (Routine) - Closed Specialty Diagnoses / Procedures Referred By Contact Refer red To Contact Diagnoses Screening for breast cancer Karla Velasquez [place] [address] [place] [address] Referral ID Status Reason Start Date Expiration Date Visits Requ ested Visits Authorized [id number] Closed 10/30/2018 10/30/2019 1 1 Encounter Details Date Type Department Care Team Description 11/03/2018 Hospital Encounter [facility] [address] [address] Social History Tobacco Use Types Packs/Day Years Used Date Smoking Tobacco: Former Cigarettes 1 45 Quit : 06/18/2017 Smokeless Tobacco: Never Comments: doesn't smoke in her house Alcohol Use Standard Drinks/Week Comments No 0 (1 standard drink = 0.6 oz pure alcoho l) Sex Assigned at Date Recorded Not on file documented as of this encounter Medications at Time of Discharge Medication Sig Dispensed Refills Start Date End Date famotidine (PEPCID) 20 mg Take 1 tablet (20 30 tablet 0 07/201812/02/2018 oral tabletIndications: mg) by mouth Gastroesophageal reflux twice a day. disease, esophagitis presence not specified ipratropium-albuterol Inhale 1 puff 1 Inhaler 11 06/24/2018 08/21/2019 (COMBIVENT RESPIMAT) 20-100 four times a day mcg/actuation Inhl Mist as needed. inhalerIndications: COPD with exacerbation (HCC) loratadine (CLARITIN) 10 mg Take 10 mg by 0 08/21/2019 oral tablet mouth once daily. ondansetron (ZOFRAN) 8 mg Take 1 tablet (8 20 tablet 0 07/201812/02/2018 oral tablet mg) by mouth every 8 (eight) hours as needed for Nausea & Vomiting. documented as of this encounter Plan of Treatment Not on filedocumented as of this encounter Procedures Procedure Name Priority Date/Time Associated Diagnosis Comme nts MAMMO DIGITAL Routine 11/03/2018 4:34 PM Screening for breast Results for this SCREENING BI CDT cancer procedure are i n the results section. documented in this encounter Results MAMMO DIGITAL SCREENING BI (11/03/2018 4:34 PM CDT) Anatomical Region Laterality Modality Breast Bilateral Mammography Specimen (Source) Anatomical Location Collection Method / Collectio n Time Received Time / Laterality Volume Impressions 11/03/2018 4:58 PM CDT : There is no mammographic evidence of mal ignancy. ? RECOMMENDATION: ?? A follow-up mammogram in 1 year is stron gly recommended. BI-RADS: Overall: 2 - Benign The patient will be notified of the resu lts. REPORT SIGNED BY Master Mata MD Narrative 11/03/2018 4:58 PM CDT EXAM: MAMMO DIGITAL SCREENING BI REASON FOR EXAM: Routine screening mammogram COMPARISON: ??Compared to: 06/18/2017 MA MMO DIGITAL SCREENING BI TECHNIQUE: Craniocaudal and oblique digital views w ere obtained. ??Current study was evaluated with Computer Aided Detection (CAD) system. FINDINGS: The breasts are heterogeneously dense. ? ?There are benign appearing calcifications present in the right [address]. ??No significant masses, calcifications, or other findings are se en. ??There has been no significant interval change. Karla Padilla MD MAMMO ORDERABLE documented in this encounter Visit Diagnoses Diagnosis Screening for breast cancer Breast screening, unspecified documented in this encounter Care Teams Children Teacher Relationship Specialty Start Date End Date [facility] PCP - Primary Care Clinic Family Medicine 06/27/16 08/20/19 [facility] - Karla Velasquez MD PCP - General Family Medicine 09/02/17 08/20/19 [address] [facility] [address] [place] [address] documented as of this encounter
--- OUTSIDE RECORDS SUMMARY | 2021-12-15 20:24 | XMS_ITS | Encounter Summary ---
:1960 Author Organization [facility] Address [address] [place] [address] Care Team Providers Name Role Phone Fanny Causey MD Primary Care Provider Unavailable [facility] - Unavailable Unavailable Reason for Visit Reason Comments Asthma thinks she may be developing asthma (family history of asthma), has wheezing and coughing in the morning; has allergies but unknown what she is allergic to Encounter Details Date Type Department Care Team Description 06/27/2016 Office Visit [facility] Fanny Causey DO E (dyspnea on exertion) (Primary Dx); Clinic - Tabitha Saeed MD Chronic br onchitis, unspecified chronic bronchitis type (HCC); [facility] COPD with exacerbation (HCC) [address] [place] [address], [address] [place] [address] Social History Tobacco Use Types Packs/Day Years Used Date Smoking Tobacco: Every Day Cigarettes 1 45 Smokeless Tobacco: Never Tobacco Cessation: Ready to Quit: No; Co unseling Given: Yes Comments: doesn't smoke in her house Alcohol Use Standard Drinks/Week Comments No 0 (1 standard drink = 0.6 oz pure alcoho l) Sex Assigned at Date Recorded Not on file documented as of this encounter Last Filed Vital Signs Vital Sign Reading Time Taken Comments Blood Pressure 173/88 06/27/2016 3:17 PM CDT Pulse 87 06/27/2016 3:17 PM CDT Temperature 36.7 ??C (98 ??F) 06/27/2016 3:17 PM CDT Respiratory Rate - - Oxygen Saturation 90% 06/27/2016 4:04 PM CDT Inhaled Oxygen Concentration - - Weight 73.3 kg (161 lb 9.6 oz) 06/27/2016 3:17 PM CDT Height 158.1 cm (5' 2.25) 06/27/2016 3:17 PM CDT Body Mass Index 29.32 06/27/2016 3:17 PM CDT documented in this encounter Patient Instructions Patient InstructionsCataniket Causey MD - 06/27/2016 3:00 PM CDT Use the controller (budesonide) twice daily no matter how you feel Use the rescue inhaler (albuterol) as needed and/or 4 times daily Schedule a physical for the sometime in the next week documented in this encounter Progress Notes Fanny Causey MD - 06/27/2016 3:00 PM CDT Chief Complaint Patient presents with ??? Asthma thinks she may be developing asthma (family history of asthma), has wheezing and coughing in the morning; has allergies but unknown what she is allergic to S) I think I have asthma. I have allergies but I don't know what to. Usually seasonal, starting to wonder if she is allergicto dust or her cat. 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 Some days are way worse. She smokes 1/2 PPD, was 1 PPD until it got too expensive. Parents both smoked. Every morning she coughs up mucous and wheezes She is getting short of breath which she never has had before, was breathing harder than a 88 year old man walking down a long hallway. It's starting to affect my life. There are days that she can't even finish a sentence without catching her breath. Lipid profile in 2007: total 208, LDL 134, normal HDL and triglycerides Last pap was in 2007 ROS) Complete 13 point ROS is otherwise negative I reviewed PMH, PSH, family and social hx, meds and allergies in Care Everywhere, entered in [facility] Patient Active Problem List Diagnosis ??? Smoker Past Medical History: Diagnosis Date ??? Back injury Past Surgical History: Procedure Laterality Date ??? HX NEGATIVE FOR SURGERY Family History Problem Relation Age of Onset ??? Alzheimer's Disease Mother ??? Heart Disease Mother CABG ??? Asthma Mother ??? Cancer Sister absestos ??? Asthma Brother ??? Lung Cancer Brother liposarcoma ??? Asthma Son ??? High Blood Pressure Brother Social History Substance Use Topics ??? Smoking status: Current Every Day Smoker Packs/day: 1.00 Years: 45.00 Types: Cigarettes ??? Smokeless tobacco: Never Used Comment: doesn't smoke in her house ??? Alcohol use No No current outpatient prescriptions on file prior to visit. No current facility-administered medications on file prior to visit. O) Vitals: 06/27/16 1517 BP: (!) 173/88 BP Cuff Site: Right arm BP Cuff Position: Sitting BP Cuff Size: Regular adult Pulse: 87 Temp: 98 ??F (36.7 ??C) TempSrc: Oral SpO2: 93% Weight: 73.3 kg (161 lb 9.6 oz) Height: 1.581 m (5' 2.25) General: well appearing, NAD, smoker's cough Affect: bright, a little anxious Eyes: clear, PERRL Nose: clear OP: clear Ears: TMs clear Neck: supple without significant adenopathy, no thyromegaly or mass palpable Lungs: poor air movement, insp/exp wheeze and rhonchi Heart: RRR without murmur, rub or gallop, normal S1S2 Legs: without edema or venous stasis changes Abdomen: soft, non-tender, non-distended Walking O2 sats: lowest 90% at maximum exertion on stairs Spirometry: severe obstruction, FEV1 31%, FVC44% CXR reviewed by author as: no infiltrate Duoneb given with improvement in spirometry to an FEV1 of 39% and she feels like she can take a deeper breath A/P) 48-year-old female with COPD/chronic bronchitis secondary to 40+ years of smoking , which she is notquite ready to quit, although is contemplating. We'll start her on Symbicort and Combivent, okay to substitute at the pharmacy for covered brand. She is going to set up CPE within the next week where we can review the COPD and how the treatment is working. She is a candidate for lung cancer screening by CT scan and we will discuss at physical. Cristal was seen today for asthma. Diagnoses and all orders for this visit: CALDWELL (dyspnea on exertion) - XR CHEST PA & LAT; Future - Cancel: SPIROMETRY - albuterol-ipratropium (conc: 3-0.5mg/3mL) (DUO-NEB) nebulizer solution 3 mL; Inhale 3 mL ONCE. - SPIROMETRY, PRE/POST BROCHODILATOR Chronic bronchitis, unspecified chronic bronchitis type (HCC) - PREVNAR 13 (PNEUMOCOCCAL) COPD with exacerbation (HCC) - budesonide 160 mcg-formoterol 4.5 mcg (SYMBICORT) 160-4.5 mcg/actuation Inhl HFAA inhaler; Inhale 2 puffs Twice a Day. - ipratropium-albuterol (COMBIVENT RESPIMAT) 20-100 mcg/actuation Inhl Mist inhaler; Inhale 1 puff four times a day as needed. Options for treatment and follow-up care were reviewed with the patient. He/she was engaged and actively involved in the decision making process. He/she verbalized understanding of the options discussed and was satisfied with the final plan. documented in this encounter Plan of Treatment Scheduled Orders Name Type Priority Associated Diagnoses Order S chedule SPIROMETRY, PRE/POST OP Respiratory Routine CALDWELL (dyspnea on Or dered: BROCHODILATOR exertion) 06/27/2016 documented as of this encounter Results XR CHEST PA & [...] Visit Diagnoses Diagnosis CALDWELL (dyspnea on exertion) - Primary Other dyspnea and respiratory abnormalit y Chronic bronchitis, unspecified chronic bronchitis type (HCC) COPD with exacerbation (HCC) Obstructive chronic bronchitis with exac erbation CALDWELL (dyspnea on exertion) Other dyspnea and respiratory abnormalit y documented in this encounter Administered Medications Inactive Administered Medications - up to 3 most recent administrations Medication Order MAR Action Action Date Dose Rate Site albuterol-ipratropium (conc: Given 06/27/2016 4:13 PM CDT 3 mL 3-0.5mg/3mL) (DUO-NEB) nebulizer solution 3 mL 3 mL (1 ampule), Inhalation, ONCE, 1 dose, On Sat06/27/16 at 1545 documented in this encounter Care Teams Briar Cutter Relationship Specialty Start Date End Date Fanny Causey MD PCP - General Family Medicine 06/27/16 09/01/17 [facility] PCP - Primary Care Clinic Family Medicine 06/27/16 08/20/19 [facility] - documented as of this encounter
--- OUTSIDE RECORDS SUMMARY | 2021-12-15 20:24 | XMS_ITS | Encounter Summary ---
:1960 Author Organization [facility] Address [address] [place] [address] Care Team Providers Name Role [facility] Un[facility] Ron Padilla MD, Karla Primary Care Provider Reason for Visit Reason Comments Follow up Encounter Details Date Type Department Care Team Description 06/24/2018 Office Visit [facility] Sim Velazquez Follow-up examination (Primary Dx); [facility] - Shakeel Rojas MD COPD with exacerbation (HCC); [place] [address] Vomiting, intractability of vomiting not specified, presence of nausea not specified, unspecified vomiting type [address] [place] [address] [place], [place] (Work) [address] [phone] Social History Tobacco Use Types Packs/Day Years [...] Sign Reading Time Taken Comments Blood Pressure 132/80 06/24/2018 4:05 PM CDT Pulse 70 06/24/2018 4:05 PM CDT Temperature - - Respiratory Rate - - Oxygen Saturation - - Inhaled Oxygen Concentration - - Weight 84.8 kg (186 lb 14.4 oz) 06/24/2018 4:05 PM CDT Height 156.2 cm (5' 1.5) 06/24/2018 4:05 PM CDT Body Mass Index 34.74 06/24/2018 4:05 PM CDT documented in this encounter Progress Notes Sim Velazquez MD - 06/24/2018 4:00 PM CDT SUBJECTIVE: Cristal Rosales is a 58 y.o. female who presents for a follow up on her vomiting, she is feeling much better and her symptoms are resolved She is trying to eat healthy - she has a rash on her right cheeck bone - itches at times - she wants refill on her combivent with a chief complaint of abdominal pain for 2 days. Patient describes pain as non-specific, dull, 6/10, Epigastric. Patient admits to associated symptoms of nausea, vomiting, diarrhea, belching and denied associated symptoms of fever, chills. Pain is improved by none and worsened by nothing. Treatments tried: OTC Antacids Previous similar pain: No. Past medical history: Patient Active Problem List Diagnosis ??? Smoking greater than 30 pack years ??? Chronic bronchitis with COPD (chronic obstructive pulmonary disease) ([facility]) ??? Blood pressure elevated without history of HTN ??? Chronic obstructive pulmonary disease, unspecified COPD type ([facility]) Medications: Current Outpatient Medications: famotidine (PEPCID) 20 mg oral tablet Take 1 tablet (20 mg) by mouth twice a day. fluticasone (FLONASE) 50 mcg/actuation nasal spray Instill 2 sprays into EACH nare once daily. ipratropium-albuterol (COMBIVENT RESPIMAT) 20-100 mcg/actuation Inhl Mist inhaler Inhale 1 puff fourtimes a day as needed. loratadine (CLARITIN) 10 mg oral tablet Take 10 mg by mouth once daily. ondansetron (ZOFRAN) 8 mg oral tablet Take 1 tablet (8 mg) by mouth every 8 (eight) hours as needed for Nausea & Vomiting. SYMBICORT 160-4.5 mcg/actuation Inhl HFAA inhaler Inhale 2 puffs twice a day. Allergies: Allergies Allergen Reactions ??? Mold (Juan) Runny Nose Social history: Patient is sexually active, and is not concerned about sexually transmitted disease. Social history: Social History Tobacco Use ??? Smoking status: Former Smoker Packs/day: 1.00 Years: 45.00 Pack years: 45.00 Types: Cigarettes Last attempt to quit: 06/18/2017 Years since quittin.0 ??? Smokeless tobacco: Never Used ??? Tobacco comment: doesn't smoke in her house Substance Use Topics ??? Alcohol use: No ??? Drug use: No Family history of significant GI disease: No. Review of systems: As per HPI for GI and . CONSTITUTIONAL: Denies fever, chills, or sweats HEENT: No changes in hearing or vision, no nose bleeds or other nasal problems CV: negative for rapid or irregular heart rate, palpitations, syncope MUSCULOSKELETAL: myalgias OBJECTIVE: BP 132/80 Pulse 70 Ht 1.562 m (5' 1.5) Wt 84.8 kg (186 lb 14.4 oz) BMI 34.74 kg/m?? General appearance: well nourished, well hydrated, no acute distress. HEENT: Normal with no signs of infection. Neck: Supple, no masses or adenopathy. Thyroid: No nodules, masses, tenderness, or enlargement. Respiratory: Lungs clear to ausculation bilaterally. Respiratory easy Cardiovascular: Normal S1, S2, no murmur Gastrointestinal: soft, tenderness mild - generalized, no masses palpated CVA tenderness to percussion: absent Skin- 1cm circulat erythematous lession with peripheral satellite lessions No results found for this or any previous visit (from the past 24 hour(s)). ASSESSMENT& PLAN: Diagnoses and all orders for this visit: Follow-up examination COPD with exacerbation (HCC) - ipratropium-albuterol (COMBIVENT RESPIMAT) 20-100 mcg/actuation Inhl Mist inhaler; Inhale 1 puff four times a day as needed. Vomiting, intractability of vomiting not specified, presence of nausea not specified, unspecified vomiting type - hydration - asked her to use lamisil on the lession on her cheek. -Risk is low Sim Velazquez MD documented in this encounter Plan of Treatment Not on filedocumented as of this encounter Visit Diagnoses Diagnosis Follow-up examination - Primary Unspecified follow-up examination COPD with exacerbation (HCC) Obstructive chronic bronchitis with exac erbation Vomiting, intractability of vomiting not specified, presence of nausea not specified, unspecified vomiting type documented in this encounter Care Teams Loss Control Manager Relationship Specialty Start Date End Date Dada Lu PCP - Primary Care Clinic Family Medicine 06/27/16 08/20/19 [facility] Karla Velasquez MD PCP - General Family Medicine 09/02/17 08/20/19 [id number] [facility] [address] [place] [address] documented as of this encounter
--- OUTSIDE RECORDS SUMMARY | 2021-12-15 20:24 | XMS_ITS | Encounter Summary ---
:1960 Author Organization [facility] Address [address] [place] [address] Care Team Providers Name Role Phone [facility] Unavailable Ron Padilla MD, Karla Primary Care Provider Reason for Visit Reason Onset Date Comments Vomiting 06/16/2018 abdominal cramping x 1 day Encounter Details Date Type Department Care Team Description 06/16/2018 [facility]lsea Rojas MD [facility] - [address] [address] [place] [address] [facility] [phone] Social History Tobacco Use Types Packs/Day Years Used Date Smoking Tobacco: Former Cigarettes 1 45 Quit : 06/18/2017 Smokeless Tobacco: Never Comments: doesn't smoke in her house Alcohol Use Standard Drinks/Week Comments No 0 (1 standard drink = 0.6 oz pure alcoho l) Sex Assigned at Date Recorded Not on file documented as of this encounter Miscellaneous Notes Telephone Encounter - Lara Wilson RN - 06/16/2018 9:23 AM CDT Disposition: FYI-office visit scheduled- encounter closed Actions Requested: None Ok to leave detailed voice message:yes PCP: Karla Velasquez MD Summary of call details: Subject: Patient calling regarding she has had abdominal pain/diarrhea/cramping for 2 days. Background:/Assessment: Patient was triaged per abdominal pain- protocol and states she started having diarrhea on Saturday after eating, and continued to have diarrhea most of the day. Saturday she wokeup with some vomiting and abdominal cramping. Patient stating she continues to have abdominal cramping and her stomach feels empty. Patient has not been able to keep much food down and cannot get comfortable, her cramping is about 7/10 and the abdominal pain comes and goes the pain is all over in the abdomen and does not radiate anywhere. Patient does not have a fever. Patient has no other emergent symptoms. Recommendation: Patient reminded with her symptoms she is ok to wait for her already scheduled appointment at 2pm today, and also she was given at home care and when to be seen sooner or call back. Patient understands and agrees with this plan and has no further questions. Routed to Provider. Lara Wilson RN Care mottler operator Reason for Disposition ??? [1] MODERATE pain (e.g., interferes with normal activities) AND [2] pain comes and goes (cramps)AND [3] present > 24 hours (Exception: pain with Vomiting or Diarrhea - see that Guideline) Answer Assessment - Initial Assessment Questions 1. LOCATION: Where does it hurt? Middle stomach, right now its empty and it hurts all over 2. RADIATION: Does the pain shoot anywhere else? (e.g., chest, back) Hurts all over stomach. 3. ONSET: When did the pain begin? (e.g., minutes, hours or days ago) Saturday, started having diarrhea, Saturday morning 1-2 days. 4. SUDDEN: Gradual or sudden onset? Gradual 5. PATTERN Does the pain come and go, or is it constant? - If constant: Is it getting better, staying the same, or worsening? (Note: Constant means the pain never goes away completely; most serious pain is constant and it progresses) - If intermittent: How long does it last? Do you have pain now? (Note: Intermittent means the pain goes away completely between bouts) The pain comes goes 6. SEVERITY: How bad is the pain? (e.g., Scale 1-10; mild, moderate, or severe) - MILD (1-3): doesn't interfere with normal activities, abdomen soft and not tender to touch - MODERATE (4-7): interferes with normal activities or awakens from sleep, tender to touch - SEVERE (8-10): excruciating pain, doubled over, unable to do any normal activities 08/20 7. RECURRENT SYMPTOM: Have you ever had this type of abdominal pain before? If so, ask: When was the last time? and What happened that time? NO 8. CAUSE: What do you think is causing the abdominal pain? NONE 9. RELIEVING/AGGRAVATING FACTORS: What makes it better or worse? (e.g., movement, antacids, bowel movement) NO 10. OTHER SYMPTOMS: Has there been any vomiting, diarrhea, constipation, or urine problems? Vomiting, Diarrhea, cramping 11. : Is there any chance you are ? When was your last menstrual period? NONE Protocols used: ABDOMINAL PAIN - FEMALE-A-AH Telephone Encounter - Odilia Dudley - 06/16/2018 9:12 AM CDT Patient Phone Message (General) Callback Number: [phone] Ok to leave a detailed message on [email or web address]? yes Who are you trying to reach?: shear setter Message: Cristal Rosales called because she has been vomiting and experiencing abdominal cramping for approximately 24 hours. Patient does have an appointment scheduled for 2:00 pm today, however, is requesting to speak with a nurse prior. Requested Action: Please call patient at number provided to advise. Odilia Dudley Care Access (MAIL PROCESSING MACHINE OPERATOR) Department documented in this encounter Plan of Treatment Not on filedocumented as of this encounter Visit Diagnoses Not on filedocumented in this encounter Care Teams Robotic Technician Relationship Specialty Start Date End Date [facility] PCP - Primary Care Clinic Family Medicine 06/27/16 08/20/[address] [facility] - Karla Velasquez MD PCP - General Family Medicine 09/02/17 08/20/[id number] [place] [address] documented as of this encounter
--- OUTSIDE RECORDS SUMMARY | 2021-12-15 20:24 | XMS_ITS | Encounter Summary ---
:1960 Author Organization [facility] Address [address] [place] [address] Care Team Providers Name Role Phone [facility] - Unavailable Unavailable Ron Padilla MD, Karla Primary Care Provider Reason for Visit Reason Onset Date Comments Cat bite 09/04/2017 Encounter Details Date Type Department Care Team Description 09/04/2017 Nurse Triage [facility] Nas Velasquez MD [facility] - [id number] [place] [address] [facility] [address] [place] [address] Social History Tobacco Use Types Packs/Day Years Used Date Smoking Tobacco: Former Cigarettes 1 45 Quit : 06/18/2017 Smokeless Tobacco: Never Comments: doesn't smoke in her house Alcohol Use Standard Drinks/Week Comments No 0 (1 standard drink = 0.6 oz pure alcoho l) Sex Assigned at Date Recorded Not on file documented as of this encounter Miscellaneous Notes Telephone Encounter - Kenyetta Vidal RN - 09/04/2017 3:31 PM CDT Disposition: FYI-Referred to see a provider within 4 hours per protocol Actions requested: None PCP: Ron Call summary: Patient calling c/o cat bite that happened 20-30 minutes ago. Please see triage information below. Referred pt to see provider within 4 hours per protocol. Care advice reviewed. Instructed patient to call back with other questions, concerns, or worsening of symptoms. She verbalized understanding. Kenyetta Vidal RN Care Access Triage Nurse Reason for Disposition ??? [1] Puncture wound (hole through the skin) from claws or teeth AND [2] cat Answer Assessment - Initial Assessment Questions 1. ANIMAL: What type of animal caused the bite? Is the injury from a bite or a claw? If the animal is a dog or a cat, ask: Was it a pet or a stray? Was it acting ill or behaving strangely? Cat bite. Indoor pet cat, all shots current. 2. LOCATION: Where is the bite located? Right calf 3. SIZE: How big is the bite? What does it look like? 5 puncture wounds. Between the 4 bites there is bruising/lines that were immeditely there. 4. ONSET: When did the bite happen? (Minutes or hours ago) Happened 20-30 minutes ago 5. CIRCUMSTANCES: Tell me how this happened. She meowed and it startled the cat and bit her in the calf. 6. TETANUS: When was the last tetanus booster? She thinks she is up to date, she thinks she got one last year. 7. : Is there any chance you are ? When was your last menstrual period? N/a Protocols used: ANIMAL BITE-A- documented in this encounter Plan of Treatment Not on filedocumented as of this encounter Visit Diagnoses Not on filedocumented in this encounter Care Teams Cap Jewel Plate Assembler Relationship Specialty Start Date End Date [facility] PCP - Primary Care Clinic Family Medicine 06/27/16 08/20/19 [facility] - Karla Velasquez MD PCP - General Family Medicine 09/02/17 08/20/[id number] [place] [address] documented as of this encounter
--- OUTSIDE RECORDS SUMMARY | 2021-12-15 20:24 | XMS_ITS | Encounter Summary ---
:1960 Author Organization [facility] Address [address] [place] [address] Care Team Providers Name Role Phone [facility] - Unavailable Unavailable Ron Padilla MD, Karla Primary Care Provider Reason for Visit Reason Comments Lab specimens Encounter Details Date Type Department Care Team Description 09/02/2017 Beaker Procedure [place] [facility] for colon Clinic [facility] (Primary Dx) [address], [address] [place], [place] [id number] Social History Tobacco Use Types Packs/Day Years [...] Diagnosis Comme nts IFOBT FECAL OCCULT Routine 09/02/2017 2:16 PM Screening for co cornelio Results for this BLOOD OP CDT cancer procedure are i n the results section. documented in this encounter Results (ABNORMAL) IFOBT FECAL OCCULT BLOOD OP (09/02/2017 2:16 PM CDT) [facility] Method Time Signature IFOBT OCCULT Positive (A) Negative 09/02/2017 [place] BLOOD STOOL 2:[address] [facility] Specimen Anatomical Collection Method Collection Time Receive d Time (Source) Location / / Volume Laterality Stool 09/02/2017 2:16 PM 8 2:16 CDT PM CDT Karla Padilla MD URINE ORDERABLE Performing Organization Address City/State/ZIP Code Phon e Number [facility] [address] [place] [address] - [facility] documented in this encounter Visit Diagnoses Diagnosis Screening for colon cancer - Primary Special screening for malignant neoplasm s, colon documented in this encounter Care Teams Lap Maker Relationship Specialty Start Date End [facility] 06/27/16 08/20/19 [facility] - Karla Velasquez MD PCP - General Family Medicine 09/02/17 08/20/19 [id number] [facility] [address] [place] [address] documented as of this encounter
--- OUTSIDE RECORDS SUMMARY | 2021-12-15 20:24 | XMS_ITS | Encounter Summary ---
:[address] [facility] Address [address] [place] [address] Care Team Providers Name Role Phone [facility] - Unavailable Unavailable Ron Padilla MD, Karla Primary Care Provider Reason for Referral (Routine) - Closed Specialty Diagnoses / Procedures Referred By Contact Refer red To Contact Diagnoses Abdominal pain, unspecified abdominal location Sim Velazquez MD Procedures LIPASE [address] [place] [address] Referral ID Status Reason Start Date Expiration Date Visits Requ ested Visits Authorized [id number] Closed 06/16/2018 06/16/2019 1 1 (Routine) - Closed Specialty Diagnoses / Procedures Referred By Contact Refer red To Contact Diagnoses Abdominal pain, unspecified abdominal location Sim Velazquez MD Procedures COMPREHENSIVE METABOLIC PANEL [address] [place] [address] Referral ID Status Reason Start Date Expiration Date Visits Requ ested Visits Authorized [id number] Closed 06/16/2018 06/16/2019 1 1 Reason for Visit Reason Comments Vomiting started 2 nights ago Abdominal pain Encounter Details Date Type Department Care Team Description 06/16/2018 Office Visit [facility] Sim Velazquez Gastroent eritis (Primary Dx); [facility] - Shakeel Rojas MD Abdominal pain, unspecified abdominal lo cation; [place] [address] Gastroesophageal reflux disease, esophag itis presence not specified [address] [phone] [place] (Work) [address] [phone] Social History Tobacco Use Types Packs/Day Years [...] Sign Reading Time Taken Comments Blood Pressure 136/80 06/16/2018 2:04 PM CDT Pulse 83 06/16/2018 2:04 PM CDT Temperature 36.8 ??C (98.2 ??F) 06/16/2018 2:04 PM CDT Respiratory Rate 16 06/16/2018 2:04 PM CDT Oxygen Saturation 96% 06/16/2018 2:04 PM CDT Inhaled Oxygen Concentration - - Weight 84.6 kg (186 lb 9.6 oz) 06/16/2018 2:04 PM CDT Height 156.2 cm (5' 1.5) 06/16/2018 2:04 PM CDT Body Mass Index 34.69 06/16/2018 2:04 PM CDT documented in this encounter Patient Instructions Patient InstructionsMrrebecca Velazquez MD - 06/16/2018 2:00 PM CDT Gastritis WHAT YOU NEED TO KNOW: What is gastritis? Gastritis is inflammation or irritation of the lining of your stomach. What increases my risk for gastritis? Helicobacter pylori (H pylori) bacterial infection ??? NSAIDs, aspirin, or steroid medicine ??? Use of tobacco products or alcohol ??? Stress ??? Diabetic gastroparesis, or an autoimmune disorder such as Crohn disease ??? An injury to your stomach or small intestine ??? A toxic object you swallowed, such as a button battery What are the signs and symptoms of gastritis? Stomach pain, burning, or tenderness when you press on it, or stomach fullness and tightness ??? Nausea or vomiting ??? Loss of appetite, or feeling full quickly when you eat ??? Bad breath ??? Fatigue or feeling more tired than usual How is gastritis diagnosed? Your healthcare provider will ask about your signs and symptoms and examine you. You may need tests to confirm that you have an H pylori infection. You may also need any of the following: ??? An endoscopy is used to look for problems in your stomach. Your healthcare provider will use an endoscope (tube with a light and camera on the end) during the procedure. He may take a sample from your stomach to be tested. ??? Blood tests may be used to show an infection. ??? A breath test may show if H pylori is causing your gastritis. You will be given a liquid to drink. Then you will breathe into a bag. Your healthcare provider will measure the amount of carbon dioxide in your breath. Extra amounts may mean you have an H pylori infection. ??? A bowel movement sample may be tested for bacteria that may be causing your gastritis. How is gastritis treated? Your symptoms may go away without treatment. Symptoms caused by a toxic object such as a button battery need immediate treatment. You may need treatment if your symptoms are severe or become chronic. Treatment will depend on what is causing your gastritis. Your healthcare provider may recommend changes to the medicines you take. Medicines may be given to help treat a bacterial infection or decrease stomach acid. What can I do to manage or prevent gastritis? Do not smoke. Nicotine and other chemicals in cigarettes and cigars can cause lung damage. Ask your healthcare provider for information if you currently smoke and need help to quit. E-cigarettes orsmokeless tobacco still contain nicotine. Talk to your healthcare provider before you use these products. ??? Limit or do not drink alcohol. Alcohol can make your gastritis worse. Talk to your healthcare provider if you need help to stop drinking. ??? Do not take NSAIDs or aspirin unless directed. These and similar medicines can cause irritation.It may help to take NSAIDs with food, but you may not be able to take them at all. ??? Do not eat foods that cause irritation. Foods such as oranges and salsa can cause burning or pain. Eat a variety of healthy foods. Examples include fruits (not citrus), vegetables, low-fat dairy products, beans, whole-grain breads, and lean meats and fish. Try to eat small meals, and drink water with your meals. Do not eat for at least 3 hours before you go to bed. ??? Keep batteries and similar objects out of the reach of children. Babies often put items in theirmouths to explore them. Button batteries are easy to swallow and can cause serious damage. Keep the battery covers of electronic devices such as remote controls taped closed. Store all batteries and toxic materials where children cannot get to them. Use childproof locks to keep children away from dangerous materials. Call 911 for any of the following: ??? You develop chest pain or shortness of breath. ??? You vomit blood. ??? When should I seek immediate care? You have black or bloody bowel movements. ??? You have severe stomach or back pain. ??? When should I contact my healthcare provider? You have a fever. ??? You have new or worsening symptoms, even after treatment. ??? You have questions or concerns about your condition or care. CARE AGREEMENT: You have the right to help plan your care. Learn about your health condition and how it may be treated. Discuss treatment options with your caregivers to decide what care you want to receive. You always have the right to refuse treatment. The above information is an hiv/aids care nurse only. It is not intended as medical advice for individual conditions or treatments. Talk to your doctor, nurse or pharmacist before following any medical regimen to see if it is safe and effective for you. ?? 2016 [employer]. Information is for End User's use only and may not be sold, redistributed or otherwise used for commercial purposes. All illustrations and images included in CareNotes?? are the copyrighted property of [employer] or [employer]. documented in this encounter Progress Notes Sim Velazquez MD - 06/16/2018 2:00 PM CDT SUBJECTIVE: Cristal Rosales is a 58 y.o. female who presents with a chief complaint of abdominal pain [...] bronchitis with COPD (chronic obstructive pulmonary disease) ([facility]) ??? Blood pressure elevated without history of HTN ??? Chronic obstructive pulmonary disease, unspecified COPD type ([facility]) Medications: Current Outpatient Medications: famotidine (PEPCID) 20 [...] Last attempt to quit: 06/18/2017 Years since quittin.9 ??? Smokeless tobacco: Never Used ??? Tobacco [...] rate, palpitations, syncope MUSCULOSKELETAL: myalgias OBJECTIVE: BP 136/80 Pulse 83 Temp 98.2 ??F (36.8 ??C) (Oral) Resp 16 Ht 1.562 m (5' 1.5) Wt 84.6 kg(186 lb 9.6 oz) SpO2 96% BMI 34.69 kg/m?? General appearance: well nourished, well hydrated, no acute distress. HEENT: Normal with no signs of infection. Neck: Supple, no masses or adenopathy. Thyroid: No nodules, masses, tenderness, or enlargement. Respiratory: Lungs clear to ausculation bilaterally. Respiratory easy Cardiovascular: Normal S1, S2, no murmur Gastrointestinal: soft, tenderness mild - generalized, no masses palpated CVA tenderness to percussion: absent Results for orders placed or performed in visit on 06/16/18 (from the past 24 hour(s)) CBC/DIFFERENTIAL OP Result Value Ref Range WBC OP 8.2 4.3 - 10.8 K/UL RBC OP 4.93 4.20 - 5.40 M/UL HEMOGLOBIN OP 15.0 12.0 - 16.0 gm/dL HEMATOCRIT OP 43.4 36.0 - 48.0 % MCV OP 88 80 - 100 fl MCH OP 30.4 27.0 - 33.0 pg MCHC OP 34.6 33.0 - 36.0 gm/dL RDW OP 12.8 11.5 - 14.5 % PLATELET COUNT OP 284 150 - 400 K/UL MPV OP 9.3 6.5 - 12.0 PMN % OP 86.0 % LYMPHOCYTE % OP 10.4 % MONOCYTE % OP 3.1 % EOSINOPHIL % OP 0.4 % BASOPHIL % OP 0.1 % PMN ABSOLUTE OP 7.04 1.80 - 7.80 K/uL LYMPHOCYTE ABSOLUTE OP 0.85 (L) 1.00 - 4.00 K/uL MONOCYTE ABSOLUTE OP 0.25 0.00 - 1.00 K/uL EOSINOPHIL ABSOLUTE OP 0.03 0.00 - 0.45 K/uL BASOPHIL ABSOLUTE OP 0.01 0.00 - 0.20 K/uL ASSESSMENT& PLAN: Cristal was seen today for vomiting and abdominal pain. Diagnoses and all orders for this visit: Gastroenteritis Abdominal pain, unspecified abdominal location - CBC/DIFFERENTIAL OP - COMPREHENSIVE METABOLIC PANEL - LIPASE - XR ABDOMEN FLAT & UPRIGHT; Future Gastroesophageal reflux disease, esophagitis presence not specified - famotidine (PEPCID) 20 mg oral tablet; Take 1 tablet (20 mg) by mouth twice a day. Other orders - ondansetron (ZOFRAN) 8 mg oral tablet; Take 1 tablet (8 mg) by mouth every 8 (eight) hours as needed for Nausea & Vomiting. -Discussed with her the importance of hydration. I think this is a stomach flu. Asked her to be on aliquid diet like soups Jell-O vegetables to except. Avoid dairy products for a week. I have reviewed the x-ray chest which is negative for any obstruction and the white counts are normal. The patient was actively involved in the decision making and verbalised understanding. All the questions were answered. Time spent with the pt 25min. More than 50% of the time for this visit was spent in counselling and or co- ordination of care.25min Patient agreed with discussed care plan. Risk is low Sim Velazquez MD documented in this encounter Plan of Treatment Not on filedocumented as of this encounter Procedures Procedure Name Priority Date/Time Associated Comments Diagnosis CBC/DIFFERENTIAL OP Routine 06/16/2018 2:46 PM Abdominal pain, Results for this CDT unspecified procedure are i n abdominal location the resul ts section. LIPASE Routine 06/16/2018 2:46 PM Abdominal pain, Result s for this CDT unspecified procedure are i n abdominal location the resul ts section. COMPREHENSIVE Routine 06/16/2018 2:46 PM Abdominal pain, Resul ts for this METABOLIC PANEL CDT unspecified procedure ar e in abdominal location the resul ts section. documented in this encounter Results LIPASE (06/16/2018 2:46 PM CDT) athologist Signature LIPASE 146 73 - 350 06/16/2018 [facility] IU/L 9:27 PM CDT [facility] Specimen Anatomical Collection Method / Collection Time Recei manny Time (Source) Location / Volume Laterality Blood Venipuncture / 06/16/2018 2:46 06/16/2018 2:46 Unknown PM CDT PM CDT Sim Velazquez MD CHEMISTRY ORDERABLE Performing Organization Address City/State/ZIP Code Phon e Number [facility] [address] [address] LABORATORY (ABNORMAL) COMPREHENSIVE METABOLIC PANEL (06/16/2018 2:46 PM CDT) Analysis Performed At Patho logist Time Signature SODIUM 137 136 - 145 06/16/2018 [facility] mmol/L 9:27 PM T HEALTH LABORATORY POTASSIUM 4.4 3.5 - 5.1 06/16/2018 [facility] mmol/L 9:27 PM [facility] CHLORIDE 102 98 - 112 06/16/2018 [facility] mmol/L 9:27 PM [facility] CARBON DIOXIDE 26 21 - 32 06/16/2018 [facility] mmol/L 9:27 PM [facility] BUN (UREA 12 7 - 24 06/16/2018 [facility] NITRO) mg/dL 9:27 PM [facility] CREATININE 0.85 0.55 - 06/16/2018 [facility] 1.02 mg/dL 9:27 PM T HEALTH LAB[facility] EST GFR >60 >60 mL/min 06/16/2018 [facility] (CKD-EPI) 9:27 PM [facility] EST GFR IF >60 >60 mL/min 06/16/2018 [facility] AM 9:27 PM [facility] GLUCOSE 127 (H) 74 - 106 06/16/2018 [facility] mg/dL 9:27 PM [facility] CALCIUM, SERUM 8.9 8.5 - 10.1 06/16/2018 [facility] L mg/dL 9:27 PM T [facility]ALTH LAB[facility]ORY ANION GAP 9.0 0.0 - 15.0 06/16/2018 [facility] mmol/L 9:27 PM [facility] ALBUMIN 4.2 3.4 - 5.0 06/16/2018 [facility] g/dL 9:27 PM [facility] BILIRUBIN-TOTAL 0.4 0.2 - 1.0 06/16/2018 [facility] L mg/dL 9:27 PM [facility] ALKALINE P'TASE 85 45 - 117 06/16/2018 [facility] L IU/L 9:27 PM [facility] PROTEIN TOTAL 7.4 6.4 - 8.2 06/16/2018 [facility] g/dL 9:27 PM [facility] AST (SGOT) 15 12 - 37 06/16/2018 [facility] IU/L 9:27 PM CDT HEALTH LABORATORY ALT 20 12 - 68 06/16/2018 [facility] IU/L 9:27 PM [facility] LAB[facility] Specimen Anatomical Collection Method / Collection Time Recei manny Time (Source) Location / Volume Laterality Blood Venipuncture / 06/16/2018 2:46 06/16/2018 2:46 Unknown PM CDT PM CDT Sim Velazquez MD CHEMISTRY ORDERABLE Performing Organization Address City/State/ZIP Code Phon e Number [facility] [address] [place] [address] LABORATORY (ABNORMAL) CBC/DIFFERENTIAL OP (06/16/2018 2:46 PM CDT) Analysis Performed At Patho logist Time Signature WBC OP 8.2 4.3 - 10.8 06/16/2018 [place] K/UL 2:54 PM CDT [facility] RBC OP 4.93 4.20 - 06/16/2018 [place] 5.40 M/UL 2:54 PM CDT [facility] HEMOGLOBIN OP 15.0 12.0 - 06/16/2018 [place] 16.0 gm/dL 2:54 PM CDT [facility] HEMATOCRIT OP 43.4 36.0 - 06/16/2018 [place] 48.0 % 2:54 PM CDT [facility] MCV OP 88 80 - 100 06/16/2018 [place] fl 2:54 PM CDT [facility] MCH OP 30.4 27.0 - 06/16/2018 [place] 33.0 pg 2:54 PM CDT [facility] MCHC OP 34.6 33.0 - 06/16/2018 [place] 36.0 gm/dL 2:54 PM CDT [facility] RDW OP 12.8 11.5 - 06/16/2018 [place] 14.5 % 2:54 PM CDT [facility] PLATELET COUNT 284 150 - 400 06/16/2018 [place] OP K/UL 2:54 PM CDT [facility] MPV OP 9.3 6.5 - 12.0 06/16/2018 [place] 2:54 PM CDT [facility] PMN % OP 86.0 % 06/16/2018 [place] 2:54 PM CDT [facility] LYMPHOCYTE % OP 10.4 % 06/16/2018 [place] 2:54 PM CDT [facility] MONOCYTE % OP 3.1 % 06/16/2018 [place] 2:54 PM CDT [facility] EOSINOPHIL % OP 0.4 % 06/16/2018 [place] 2:54 PM CDT [facility] BASOPHIL % OP 0.1 % 06/16/2018 [place] 2:54 PM CDT [facility] PMN ABSOLUTE OP 7.04 1.80 - 06/16/2018 [place] 7.80 K/uL 2:54 PM CDT [facility] LYMPHOCYTE 0.85 (L) 1.00 - 06/16/2018 [place] ABSOLUTE OP 4.00 K/uL 2:54 PM CDT [facility] MONOCYTE 0.25 0.00 - 06/16/2018 [place] ABSOLUTE OP 1.00 K/uL 2:54 PM CDT [facility] EOSINOPHIL 0.03 0.00 - 06/16/2018 [place] ABSOLUTE OP 0.45 K/uL 2:54 PM CDT [facility] BASOPHIL 0.01 0.00 - 06/16/2018 [place] ABSOLUTE OP 0.20 K/uL 2:54 PM CDT [facility] Specimen Anatomical Collection Method / Collection Time Recei manny Time (Source) Location / Volume Laterality Blood Venipuncture / 06/16/2018 2:46 06/16/2018 2:46 Unknown PM CDT PM CDT Sim Velazquez MD HEMATOLOGY ORDERABLE Performing Organization Address City/State/ZIP Code Phon e Number [facility] [address] [place] [address] [facility] [address] [address] [facility] XR ABDOMEN FLAT & UPRIGHT (06/16/2018 2:42 [...] documented in this encounter Visit Diagnoses Diagnosis Gastroenteritis - Primary Other and unspecified noninfectious margaret roenteritis and colitis Abdominal pain, unspecified abdominal lo cation Gastroesophageal reflux disease, esophag itis presence not specified Abdominal pain, unspecified abdominal lo cation documented in this encounter Care Teams Chip Silo Tender Relationship Specialty Start Date End Date [facility] PCP - Primary Care Clinic Family Medicine 06/27/16 08/20/19 [facility] - Karla Velasquez MD PCP - General Family Medicine 09/02/17 08/20/19 [id number] [place] [address] documented as of this encounter
--- OUTSIDE RECORDS SUMMARY | 2021-12-15 20:24 | XMS_ITS | Encounter Summary ---
:[address] [facility] Address [address] [place] [id number] Care Team Providers Name Role Phone Fanny Causey MD Primary Care Provider Unavailable [facility] - Unavailable Unavailable Reason for Referral (Routine) - Closed Specialty Diagnoses / Procedures Referred By Contact Refer red To Contact Diagnoses Screening for breast cancer Doctor, No Procedures MAMMO DIGITAL SCREENING BI No ad Referral ID Status Reason Start Date Expiration Date Visits Requ ested Visits Authorized [id number] Closed 06/17/2017 06/17/2018 1 1 Reason for Visit (Routine) - Closed Specialty Diagnoses / Procedures Referred By Contact Refer red To Contact Diagnoses Screening for breast cancer Doctor, No Procedures MAMMO DIGITAL SCREENING BI No ad Referral ID Status Reason Start Date Expiration Date Visits Requ ested Visits Authorized [id number] Closed 06/17/2017 06/17/2018 1 1 Encounter Details Date Type Department Care Team Description 06/18/2017 Hospital Encounter [facility] [address] [address] Social History Tobacco Use Types Packs/Day Years [...] Sig Dispensed Refills Start Date End Date loratadine (CLARITIN) 10 Take 10 mg by mouth 0 08/21/2019 mg oral tablet once daily. documented as of this encounter Plan of Treatment Not on filedocumented as of this encounter Procedures Procedure Name Priority Date/Time Associated Diagnosis Comme nts MAMMO DIGITAL Routine 06/18/2017 2:15 PM Screening for breast Results for this SCREENING BI CDT cancer procedure are i n the results section. documented in this encounter Results MAMMO DIGITAL SCREENING BI (06/18/2017 2:15 PM CDT) Anatomical Region Laterality Modality Breast Bilateral Mammography Specimen (Source) Anatomical Collection Method Collection Time Re ceived Time Location / / Volume Laterality 06/18/2017 2:02 PM CDT Impressions 06/21/2017 2:31 PM CDT #[id number] - MAMMO DIGITAL SCREENING BI BILATERAL DIGITAL SCREENING MAMMOGRAM [facility] CAD: 06/18/2017 FINDINGS: The tissue of both breasts is heterogeneously dense. ?? Current study was also evaluated with a Computer Aided Detection (CAD) system. ?? No significant masses, calcifications, o r other findings are seen in either breast. ?? IMPRESSION: NEGATIVE There is no mammographic evidence of mal ignancy. A 1 year screening mammogram is recommended. ?? The patient will be notified of the resu lts by mail. ?? Nelson Sanon M.D. ? sulema/penrad:06/21/2017 14:31:37 ?? letter sent: Normal Letter ?? Mammogram BI-RADS: 1 Negative Procedure Note de Nelson Davis MD - 06/21/2017F ormatting of this note might be different from the original. IMPRESSION #[id number] - MAMMO DIGITAL SCREENING BI BILATERAL DIGITAL SCREENING MAMMOGRAM [facility] CAD: 06/18/2017 FINDINGS: The tissue of both breasts is heterogeneously dense. Current study was also evaluated with a Computer Aided Detection (CAD) system. No significant masses, calcifications, o r other findings are seen in either breast. IMPRESSION: NEGATIVE There is no mammographic evidence of mal ignancy. A 1 year screening mammogram is recommended. The patient will be notified of the resu lts by mail. Nelson leone/penrad:06/21/2017 14:31:37 letter sent: Normal Letter Mammogram BI-RADS: 1 Negative No Doctor MAMMO ORDERABLE documented in this encounter Visit Diagnoses Diagnosis Screening for breast cancer Breast screening, unspecified documented in this encounter Care Teams Refinery Operator Crude Unit Relationship Specialty Start Date End Date Fnany Causey MD PCP - General Family Medicine 06/27/16 09[facility]01/17 [facility] Family Medicine 06/27/16 08/20/19 [facility] - documented as of this encounter
--- OUTSIDE RECORDS SUMMARY | 2021-12-15 20:24 | XMS_ITS | Encounter Summary ---
:1960 Author Organization [facility] Address [address] [place] [address] Care Team Providers Name Role Phone [facility] - Unavailable Unavailable Ron Padilla MD, Karla Primary Care Provider Reason for Referral (Routine) - Closed Specialty Diagnoses / Procedures Referred By Contact Refer red To Contact Diagnoses Screening for diabetes mellitus Karla Velasquez MD Procedures GLUCOSE, RANDOM [address] [place] [address] Referral ID Status Reason Start Date Expiration Date Visits Requ ested Visits Authorized [id number] Closed 09/03/2017 09/03/2018 1 1 (Routine) - Closed Specialty Diagnoses / Procedures Referred By Contact Refer red To Contact Diagnoses Screening for lipid disorders Karla Velasquez MD Procedures LIPID PROFILE [place]ASC[place] [address] [place] [address] Referral ID Status Reason Start Date Expiration Date Visits Requ ested Visits Authorized [id number] Closed 09/03/2017 09/03/2018 1 1 Reason for Visit Reason Comments Physical fasting Encounter Details Date Type Department Care Team Description 09/03/2017 Office Visit [facility] Karla Velasquez En counter for preventative adult health care examination (Primary Dx); Clinic - Tabitha Padilla MD Screening for lipid disorders; [facility] [address] Screening for diabetes melli tus; [address] Screening for colon cancer; [facility] [address] [place], [place] Chronic obstructive pulmonar y disease, unspecified COPD type ([facility]) [place] [address] [phone] Social History Tobacco Use Types Packs/Day Years [...] Sign Reading Time Taken Comments Blood Pressure 134/80 09/03/2017 10:03 AM CDT Pulse 73 09/03/2017 10:03 AM CDT Temperature 36.9 ??C (98.5 ??F) 09/03/2017 10:03 AM CDT Respiratory Rate - - Oxygen Saturation - - Inhaled Oxygen Concentration - - Weight 77.1 kg (169 lb 14.4 oz) 09/03/2017 10:03 AM CDT Height 156.2 cm (5' 1.5) 09/03/2017 10:03 AM CDT Body Mass Index 31.58 09/03/2017 10:03 AM CDT documented in this encounter Patient Instructions Patient InstructionsKrala Velasquez MD - 09/03/2017 10:13 AM CDT Preventative Health Recommendations Immunizations: Get a flu [...] test). documented in this encounter Progress Notes Karla Velasquez MD - 09/03/2017 10:13 AM CDT SUBJECTIVE: Cristal Rosales is a 57 y.o. female who presents today for annual routine preventative health maintenance visit. Concerns:her IFOBT came back positive. She has a diarrhea last week and thinks that she has a blood due to diarrhea. She would like to repeat test. Patient does not want to do a colonoscopy. Gynecologic Concerns: Last pap 2016. She is not due for a pap this year. She has not had a history of abnormal pap. Currently is sexually active. She does not need STI testing today. Menstrual status: menopausal. Cardiac Risks: Blood pressure is Normal. BMI today is Body mass index is 31.58 kg/m??.. She is overweight (BMI 25-29.9). She has had elevated lipids previously. She has not had elevated glucose previously. She does not take aspirin. Family hx negative for early cardiac disease. Cancer Risks: Family hx negative for colon cancer. She has not had a colonoscopy previously. She is currently due for colorectal cancer screening. Family hx negative for breast cancer. She has not had a mammogram performed previously. She is not currently due for mammogram screening. She is not a candidate for annual low-dose CT screen. Family History: Family History Problem Relation Age of Onset ??? Alzheimer's Disease Mother ??? Heart Disease Mother CABG ??? Asthma Mother ??? Cancer Sister absestos ??? Asthma Brother ??? Lung Cancer Brother liposarcoma ??? Asthma Son ??? High Blood Pressure Brother Lifestyle Concerns: Exercise: no regular exercise Diet: None. Osteoporosis risks: Post-menopausal Skin risks: wears sunscreen She does feel safe in her relationships. Alcohol Use: History Alcohol Use No There are not concerns about her alcohol use. Drug Use: History Drug Use No Tobacco Use: History Smoking Status ??? Former Smoker ??? Packs/day: 1.00 ??? Years: 45.00 ??? Types: Cigarettes ??? Quit date: 06/18/2017 Smokeless Tobacco ??? Never Used Comment: doesn't smoke in her house Immunizations: She is up to date on immunizations. Refills: She does not need refills today. Current Medications: Current Outpatient Prescriptions on File Prior to Visit Medication Sig [...] , NEURO or PSYCH Sx OBJECTIVE: BP 134/80 Pulse 73 Temp 98.5 ??F (36.9 ??C) (Tympanic) Ht 1.562 m (5' 1.5) Wt 77.1 kg (169 lb 14.4 oz) BMI 31.58 kg/m?? General - Alert & oriented, pleasant [...] Normal nipples without discharge, no axillary lymphadenopathy Results for orders placed or performed in visit on 09/02/17 (from the past 24 hour(s)) IFOBT FECAL OCCULT BLOOD OP Result Value Ref Range IFOBT OCCULT BLOOD STOOL OP Positive (A) Negative ASSESSMENT/PLAN: Cristal was seen today for physical. Diagnoses and all orders for this visit: Encounter for preventative adult health care examination Screening for lipid disorders - LIPID PROFILE CASCADE Screening for diabetes mellitus - GLUCOSE, RANDOM Screening for colon cancer - IFOBT COLLECTION KIT - IFOBT FECAL OCCULT BLOOD OP; Future Chronic obstructive pulmonary disease, unspecified COPD type (HCC) - budesonide 160 mcg-formoterol 4.5 mcg (SYMBICORT) 160-4.5 mcg/actuation Inhl HFAA inhaler; Inhale 2 puffs twice a day. Reviewed recommendations with patient and handout given addressing diet, exercise, cancer prevention, vaccinations, screening recommendations, and other preventative cares. Return to clinic in 1 year or sooner as needed. Karla Velasquez MD documented in this encounter Plan of Treatment Not on filedocumented as of this encounter Procedures Procedure Name Priority Date/Time Associated Diagnosis Comme nts LIPID PROFILE Routine 09/03/2017 10:29 AM Screening for lipid Results for this CASCADE CDT disorders procedure are i n the results section. GLUCOSE, RANDOM Routine 09/03/2017 10:29 AM Screening for Resu lts for this CDT diabetes mellitus procedure are in the results section. documented in this encounter Results IFOBT FECAL OCCULT BLOOD OP (10/08/2017 2:03 PM CDT) P athologist Signature IFOBT OCCULT Negative Negative 10/08/2017 [place] BLOOD STOOL OP 2:08 PM CDT [facility] Specimen Anatomical Collection Method Collection Time Receive d Time (Source) Location / / Volume Laterality Stool 10/08/2017 2:03 PM 8 2:03 CDT PM CDT Karla Padilla MD URINE ORDERABLE Performing Organization Address City/State/ZIP Code Phon e Number [facility] [id number] [address] [address] [facility] GLUCOSE, RANDOM (09/03/2017 10:29 AM CDT) P athologist Signature GLUCOSE 90 74 - 106 09/03/2017 [facility] mg/dL 10:17 PM CDT [facility] Specimen Anatomical Collection Method / Collection Time Recei manny Time (Source) Location / Volume Laterality Blood Venipuncture / 09/03/2017 10:29 8 Unknown AM CDT 10:29 AM CDT Karla Padilla MD CHEMISTRY ORDERABLE Performing Organization Address City/State/ZIP Code Phon e Number [facility] [address] [place] [address] LABORATORY (ABNORMAL) LIPID PROFILE CASCADE (09/03/2017 10:29 AM CDT) Patholo gist Method Time Signature SPECIMEN TYPE Fasting 09/03/2017 [facility] 10:17 PM CDT HE[facility] LAB[facility] CHOLESTEROL 194 <200 09/03/2017 [facility] mg/dL 10:17 PM CDT [facility] TRIGLYCERIDES 120 <150 09/03/2017 [facility] PROFILE mg/dL 10:17 PM CDT [facility] LDL CHOL, CALC 116 (H) <100 09/03/2017 [facility] mg/dL 10:17 PM CDT [facility] HDL CHOLESTEROL 54 >40 mg/dL 09/03/2017 [facility] 10:17 PM CDT [facility] CHOL/HDL RATIO 3.6 0.0 - 4.9 09/03/2017 [facility] 10:17 PM CDT [facility] Specimen Anatomical Collection Method / Collection Time Recei manny Time (Source) Location / Volume Laterality Blood Venipuncture / 09/03/2017 10:29 8 Unknown AM CDT 10:[address] [facility]ORY - 09/03 10:17 PM CDT LDL CHOLESTEROL REFERENCE RANGES: (FOR PATIENTS W/O HEART DISEASE) <100 mg/dL = Optimal 100-129 mg/dL = Near/Above Optimal 130-159 mg/dL = Borderline High 160-189 mg/dL = High >/= 190 mg/dL = Very High Karla Padilla MD CHEMISTRY ORDERABLE Performing Organization Address City/State/ZIP Code Phon e Number [facility] [address] [place] [phone] LABORATORY documented in this encounter Visit Diagnoses Diagnosis Encounter for preventative adult health care examination - Primary Screening for lipid disorders Screening for diabetes mellitus Screening for colon cancer Special screening for malignant neoplasm s, colon Chronic obstructive pulmonary disease, u nspecified COPD type (HCC) documented in this encounter Care Teams Hospital Personnel Director Relationship Specialty Start Date End Date Dada Lu PCP - Primary Care Clinic Family Medicine 06/27/16 08/20/19 [facility] - Karla Velasquez MD PCP - General Family Medicine 09/02/17 08/20/[address] [place] [address] documented as of this encounter
--- NOTE | 2021-12-15 20:39 | ED.NURSE ---
Pt O2 sats consistently at ~89%. 2L O2 NC applied to pt. O2 sats up to 93% on 2L O2. Pt also provided with meal and coffee upon request.
--- NOTE | 2021-12-15 20:43 | W.PC.EDHO ---
Primary Language: Polish Preferred Language: Orientation Status: [x] Alert & Oriented [] Slight Confusion [] Known Dx Dementia Transfers By: [x] Assist of 1 [] Assist of 2 [] Lift Active Medications Discontinued Medications Generic Name Dose Route Start Last Admin Trade Name Christel PRN Reason Stop Dose Admin Albuterol/Ipratropium 1 neb 12/15/21 19:02 12/15/21 19:20 Iprat-Albut 0.5-2.5 Mg/3 Ml Neb IH 12/15/21 19:03 1 neb ONCE ONE Administration Methylprednisolone Sodium Succinate 93.75 mg 12/15/21 18:57 12/15/21 19:28 Methylprednisolone Sod Succ 62.5 Mg/Ml (125) IVP 12/15/21 18:58 93.75 mg ONCE ONE Administration Description of Symptoms ED Triage Present Problem Pt states shes had a fever on and off since 12/11 Description with coughing. Pt contacted her clinic on Saturday and was unable to make an appointment. Pt states she has rib pain from coughing and states she is wheezing. 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 Pt is former smoker. Pt has seasonal allergies. Pain Pain Intensity [Right 6 Posterior Flank] Pain Scale Used [Right Numeric (1 - 10) Posterior Flank] IV Insertion/Site Date of IV Line Insertion [ 12/15/21 Left Antecubital] Oxygen Administration Pulse Oximetry 93 Pulse Oximetry 89 Pulse Oximetry 91 Pulse Oximetry 93 Pulse Oximetry 91 Pulse Oximetry 93 Oxygen Delivery Method Nasal Cannula Oxygen Delivery Method Room Air Oxygen Delivery Method Room Air Oxygen Delivery Method Room Air Oxygen Delivery Method Room Air Oxygen Flow Rate 2
--- NOTE | 2021-12-15 23:17 | P.IMHP_ITS ---
Hospitalist- H&P: HPI History of Present Illness Date Seen: 12/15/21 Chief complaint: Fever, cough, wheezing Narrative: Cristal Rosales is a 61 year old female [facility] Medical History Blood pressure elevated without history of HTN (07/02/16) Chronic bronchitis with COPD (chronic obstructive pulmonary disease) (07/02/16) Generalized anxiety disorder Major depression Smoking greater than 30 pack years (02/16/15) Surgical History History of cholecystectomy Family History Brother Asthma Cancer High blood pressure Sister Cancer Mother Alzheimers disease Heart disease Asthma Son Asthma Social History Highest level of school completed/degree received: some college, no degree Smoking Status: Former smoker Do you use any of these nicotine containing products: None Second hand tobacco smoke exposure: No How often do you have a drink containing alcohol: never How often do you have six or more drinks on one occasion: Never AUDIT-C Alcohol total score: 0 Non-prescribed substance use: denies use Caffeine: Yes (A CUP/DAY) service: No Meds Home Medications and Allergies Home Medications Medication Instructions Recorded Confirmed Type budesonide-formoterol HFA 160 inhalation 12/15/21 History mcg-4.5 mcg/actuation aerosol inhaler bupropion HCl 150 mg 24 hr tablet, mg PO 12/15/21 History extended release fluticasone propionate 50 intranasal 12/15/21 History mcg/actuation nasal spray,suspension ipratropium 20 mcg-albuterol 100 inhalation 12/15/21 History mcg/actuation mist for inhalation (Combivent Respimat) sertraline 25 mg tablet mg 12/15/21 History Allergies Allergy/AdvReac Type Severity Reaction Status Date / Time No Known Drug Allergies Allergy Verified 12/15/21 18:10 Exam Const: Vital Signs, click to edit/add: Vital Signs - 24 hr 12/15/21 18:03 12/15/21 19:00 12/15/21 18:57 Temperature 97.8 F Pulse Rate Pulse Rate [Right Pulse Oximeter] 100 89 Respiratory Rate 16 Blood Pressure [Ri ght Arm] Blood Pressure [Ri ght Upper Arm] 154/68 H 144/76 H Pulse Oximetry 93 93 91 Oxygen Delivery Me thod Room Air Room Air Oxygen Flow Rate 12/15/21 20:11 12/15/21 20:30 12/15/21 18:35 Temperature Pulse Rate Pulse Rate [Right Pulse Oximeter] Respiratory Rate Blood Pressure [Ri ght Arm] Blood Pressure [Ri ght Upper Arm] 130/68 176/77 H Pulse Oximetry 89 93 Oxygen Delivery Me thod Room Air Nasal Cannula Oxygen Flow Rate 2 12/15/21 20:00 12/15/21 21:00 12/15/21 21:30 Temperature Pulse Rate Pulse Rate [Right Pulse Oximeter] 93 94 95 Respiratory Rate Blood Pressure [Ri ght Arm] Blood Pressure [Ri ght Upper Arm] 117/47 L 120/60 Pulse Oximetry 91 93 94 Oxygen Delivery Me thod Room Air Nasal Cannula Nasal Cannula Oxygen Flow Rate 2 2 12/15/21 22:04 12/15/21 22:19 12/15/21 22:21 Temperature 96.9 F L 96.9 F L Pulse Rate 89 Pulse Rate [Right Pulse Oximeter] Respiratory Rate 16 16 Blood Pressure [Ri ght Arm] 142/84 H 142/84 H Blood Pressure [Ri ght Upper Arm] Pulse Oximetry 94 94 Oxygen Delivery Me thod Nasal Cannula Nasal Cannula Oxygen Flow Rate 2 2 12/15/21 22:33 12/15/21 22:49 Temperature Pulse Rate Pulse Rate [Right Pulse Oximeter] Respiratory Rate 16 Blood Pressure [Ri ght Arm] Blood Pressure [Ri ght Upper Arm] Pulse Oximetry 94 94 Oxygen Delivery Me thod Nasal Cannula Oxygen Flow Rate 2 Hospitalist - H&P: Result Labs Labs: Short CBC 12/15/21 Range/Units 19:15 WBC 5.20 (4.50-11.00) K/uL Hgb 14.6 (12.0-16.0) gm/dL Hct 44.9 (33.0-51.0) % Plt Count 232 (140-440) K/uL BMP 12/15/21 19:15 Sodium 134 L Potassium 4.2 Chloride 99 Carbon Dioxide 27 BUN 15 Creatinine 0.7 Glucose 102 Calcium 8.9
--- NOTE | 2021-12-15 23:20 | P.IMHP_ITS ---
Hospitalist- H&P: HPI History of Present Illness Time Seen by Provider: 22:30 Date Seen: 12/15/21 Chief complaint: Fever, cough, wheezing Narrative: Cristal Rosales is a 61 year old woman who presents to the emergency department today with chief complaint of shortness of breath. Until Saturday of this week she had been in her usual state of health. Saturday night she thought she had a fever although was not documented. From Saturday until today her symptoms have gr adually worsened. She has had episodes of feeling chilled and sweaty. Again had not measured her temperature to know whether not she had a fever. Has attempted ibuprofen without relief. Has developed coughing paroxysms with chest discomfort with cough and dyspnea. Has had more wheezing. Has had more weakness and fatigue and sleepiness. Has had muscle aches without arthralgias. Cough is loose sounding but nonproductive. Has not had hemoptysis. Has had longstanding COPD. She has a 45 pack-year history of smoking. Quit smoking 4 years ago. does take medicines for COPD. Previously had a cat in her home. After her CT she has not had COPD exacerbations. Generally speaking is able to vacuum her entire house. More recently has had increasing dyspnea not able to carry out nearly as much physical activity as she ordinarily as able to. Review of Systems Status of ROS: Reports: 10 or more systems reviewed and unremarkable except as noted in History and below Narrative: Aside from the chest discomfort with her coughing paroxysms she has not had chest discomfort at restaurant provoked. Has not had angina or anginal equivalent. Has not had syncope or near-syncope. Denies nausea or vomiting. Acknowledges decreased oral intake over last day or 2. Denies palpitations or fluttering. No diarrhea or constipation. No travel, trauma, injury, or other illness recently. No focal motor neurologic deficits. [facility] Medical History Blood pressure elevated without history of HTN (07/02/16) Chronic bronchitis with COPD (chronic obstructive pulmonary disease) (07/02/16) Generalized anxiety disorder Major depression Smoking greater than 30 pack years (02/16/15) Surgical History History of cholecystectomy Family History Brother Asthma Cancer High blood pressure Sister Cancer Mother Alzheimers disease Heart disease Asthma Son Asthma Social History Highest level of school completed/degree received: some college, no degree Smoking Status: Former smoker Do you use any of these nicotine containing products: None Second hand tobacco smoke exposure: No How often do you have a drink containing alcohol: never How often do you have six or more drinks on one occasion: Never AUDIT-C Alcohol total score: 0 Non-prescribed substance use: denies use Caffeine: Yes (A CUP/DAY) service: No Meds Home Medications and Allergies Home Medications Medication Instructions Recorded Confirmed Type budesonide-formoterol HFA 160 inhalation 12/15/21 History mcg-4.5 mcg/actuation aerosol inhaler bupropion HCl 150 mg 24 hr tablet, mg PO 12/15/21 History extended release fluticasone propionate 50 intranasal 12/15/21 History mcg/actuation nasal spray,suspension ipratropium 20 mcg-albuterol 100 inhalation 12/15/21 History mcg/actuation mist for inhalation (Combivent Respimat) sertraline 25 mg tablet mg 12/15/21 History Allergies Allergy/AdvReac Type Severity Reaction Status Date / Time No Known Drug Allergies Allergy Verified 12/15/21 18:10 Exam Narrative: Exam Narrative: With oxygen at 2 liters/minute via nasal cannula she appears comfortable, no acute distress. Nevertheless appears worn out and somewhat sweaty. Room air oxygen saturations will dip down to 88-89%. Does much better on oxygen at 2 liters/minute. Articulate, cooperative, friendly. Mood and affect are congruent. Alert, oriented to self, place, time, situation. Hearing and vision are grossly preserved. Midline nasal septum without nasal discharge. Oropharynx is benign appearance with dentition in good repair. Neck is supple with midline trachea normal thyroid. No JVD, hepatojugular reflux, or carotid bruits. Does not have adenopathy in the pre or postauricular chains anterior-posterior cervical chains, supra or infraclavicular fossa, submandibular or submental fossa, or axilla bilaterally. Lungs with scattered wheezing and rhonchi without rales. Chest wall excursions are full. No CVA tenderness. Heart tones with regular rhythm, normal S1-S2, without murmur, gallop, or rub. Abdomen with active bowel sounds, soft, nontender. No rebound or guarding. Extremities without edema. Moves all 4 extremities. No focal motor neurologic deficits. Cranial nerves 3- 12 grossly normal. Skin is warm, dry, intact. Const: Vital Signs, click to edit/add: Vital Signs - 24 hr 12/15/21 18:03 12/15/21 19:00 12/15/21 18:57 Temperature 97.8 F Pulse Rate Pulse Rate [Right Pulse Oximeter] 100 89 Respiratory Rate 16 Blood Pressure [Ri ght Arm] Blood Pressure [Ri ght Upper Arm] 154/68 H 144/76 H Pulse Oximetry 93 93 91 Oxygen Delivery Me thod Room Air Room Air Oxygen Flow Rate 12/15/21 20:11 12/15/21 20:30 12/15/21 18:35 Temperature Pulse Rate Pulse Rate [Right Pulse Oximeter] Respiratory Rate Blood Pressure [Ri ght Arm] Blood Pressure [Ri ght Upper Arm] 130/68 176/77 H Pulse Oximetry 89 93 Oxygen Delivery Me thod Room Air Nasal Cannula Oxygen Flow Rate 2 12/15/21 20:00 12/15/21 21:00 12/15/21 21:30 Temperature Pulse Rate Pulse Rate [Right Pulse Oximeter] 93 94 95 Respiratory Rate Blood Pressure [Ri ght Arm] Blood Pressure [Ri ght Upper Arm] 117/47 L 120/60 Pulse Oximetry 91 93 94 Oxygen Delivery Me thod Room Air Nasal Cannula Nasal Cannula Oxygen Flow Rate 2 2 12/15/21 22:04 12/15/21 22:19 12/15/21 22:21 Temperature 96.9 F L 96.9 F L Pulse Rate 89 Pulse Rate [Right Pulse Oximeter] Respiratory Rate 16 16 Blood Pressure [Ri ght Arm] 142/84 H 142/84 H Blood Pressure [Ri ght Upper Arm] Pulse Oximetry 94 94 Oxygen Delivery Me thod Nasal Cannula Nasal Cannula Oxygen Flow Rate 2 2 12/15/21 22:33 12/15/21 22:49 Temperature Pulse Rate Pulse Rate [Right Pulse Oximeter] Respiratory Rate 16 Blood Pressure [Ri ght Arm] Blood Pressure [Ri ght Upper Arm] Pulse Oximetry 94 94 Oxygen Delivery Me thod Nasal Cannula Oxygen Flow Rate 2 Documenting provider has reviewed patient's vital signs: yes Hospitalist - H&P: Result Labs Labs: Short CBC 12/15/21 Range/Units 19:15 WBC 5.20 (4.50-11.00) K/uL Hgb 14.6 (12.0-16.0) gm/dL Hct 44.9 (33.0-51.0) % Plt Count 232 (140-440) K/uL BMP 12/15/21 19:15 Sodium 134 L Potassium 4.2 Chloride 99 Carbon Dioxide 27 BUN 15 Creatinine 0.7 Glucose 102 Calcium 8.9 Imaging Chest x-ray: Attestation: I have reviewed the pertinent imaging results. Radiologist's impression: Negative per radiologist. As I review the x-ray it appears hyperinflated. Assessment and Plan Assessment and plan (1) Influenza A: Status: Acute (2) COPD exacerbation: Status: Acute (3) Chronic bronchitis with COPD (chronic obstructive pulmonary disease): Status: Acute (4) Respiratory failure with hypoxia: Status: Acute (5) Chronic kidney disease, stage 3a: Status: Acute Plan 1. Reviewed impression with emergency department physician. Agree with recommendation for admission to the hospital for observation at this time. 2. Reviewed impression with patient. Answered her questions are satisfaction. 3. Oxygen supplementation. 4. Prednisone 40 mg daily. 5. DuoNebs scheduled and albuterol nebs as needed. 6. Oseltamivir dosed for her decreased renal function. Will need 5 days total of therapy. 7. Continue with her other supportive medications. 8. Patient agreeable to above stated plans and recommendations.
[2021-12-15] MEDS: TRAMADOL HCL 50 MG TABLET PO (23:55)
[2021-12-15] MEDS: OSELTAMIVIR PHOSPHATE 75 MG CAPSULE PO (23:56)
[2021-12-15] MEDS: 0.9 % SODIUM CHLORIDE 500 ML 500 ML IV (23:57)
[2021-12-16 00:19] VITALS: BP 145/72; RESP 16; TEMP 36.2; O2SAT 92
[2021-12-16] MEDS: BENZONATATE 100 MG CAPSULE 200 MG PO ×3 (01:08→08:22)
[2021-12-16 01:37] VITALS: RESP 16; O2SAT 92
[2021-12-16] MEDS: CODEINE/GUAIFENESIN 20-200MG/10 ML SOLN PO ×2 (01:46→06:18)
--- NOTE | 2021-12-16 05:10 | PC.NURSE ---
Shift note: The pt has been pleasant and cooperative. She had been coughing frequently ; c/o ribs discomfort while she coughs; Tramadol given with a good relief. The pt has been on 2L of oxygen via NC with spo2 in the 90s. Very short of breath with exertion . Denied chest pain and other distress throughout the night . Tele has been showing NSR with HR <100 bpm.
[2021-12-16] MEDS: IPRAT-ALBUT 0.5-2.5 MG/3 ML NEB 1 NEB IH ×2 (05:38→11:38)
[2021-12-16 06:25] VITALS: BP 150/73; PULSE 79; RESP 16; TEMP 36.1; O2SAT 93
[2021-12-16 07:00] VITALS: BP 137/71; PULSE 83; RESP 18; TEMP 36.6; O2SAT 91
[2021-12-16] MEDS: SERTRALINE 50 MG TABLET 25 MG PO (08:21)
[2021-12-16] MEDS: buPROPion XL 150 MG TABLET PO (08:22)
[2021-12-16] MEDS: predniSONE 20 MG TABLET 40 MG PO (08:22)
--- NOTE | 2021-12-16 08:49 | P.IMPN_ITS ---
Progress Note: A&P Assessment and plan (1) Influenza A: Status: Acute (2) COPD exacerbation: Status: Acute (3) Chronic bronchitis with COPD (chronic obstructive pulmonary disease): Status: Acute (4) Respiratory failure with hypoxia: Status: Acute (5) Chronic kidney disease, stage 3a: Status: Acute Subjective Date Seen: 12/16/21 Interval history: Daily Progress Note - Hospital Medicine Day #: 2 CC: Influenza a, dyspnea on exertion, COPD, hypoxia OVERNIGHT UPDATES FROM STAFF & MED, LAB, IMAGING UPDATES The pt has been pleasant and cooperative. She had been coughing frequently ; c/o ribs discomfort while she coughs; Tramadol given with a good relief. The pt has been on 2L of oxygen via NC with spo2 in the 90s. Very short of breath with exertion . Denied chest pain and other distress throughout the night . Tele has been showing NSR with HR <100 bpm.? ? Afebrile overnight Blood pressure 150/73, 145/72 Pulse rate 70s to 90s Respiratory rate 16 Pulse ox 93% on 2 L Review of Systems: See subjective Cardiac: No new chest pain/pressure/palpitations. Respiratory: no new dyspnea. GI: No abdominal bloating Objective: Vitals: see above Lungs: Clear. Cardiac: S1S2. Disposition/Potential discharge - Likely to return to previous living situation. Total time is 35 minutes with greater than 50% spent in counseling and coordination of care. Exam Const: Vital Signs, click to edit/add: Vital Signs - 24 hr 12/15/21 18:03 12/15/21 19:00 12/15/21 18:57 Temperature 97.8 F Pulse Rate Pulse Rate [Right Pulse Oximeter] 100 89 Respiratory Rate 16 Blood Pressure [Ri ght Arm] Blood Pressure [Ri ght Upper Arm] 154/68 H 144/76 H Pulse Oximetry 93 93 91 Oxygen Delivery Me thod Room Air Room Air Oxygen Flow Rate 12/15/21 20:11 12/15/21 20:30 12/15/21 18:35 Temperature Pulse Rate Pulse Rate [Right Pulse Oximeter] Respiratory Rate Blood Pressure [Ri ght Arm] Blood Pressure [Ri ght Upper Arm] 130/68 176/77 H Pulse Oximetry 89 93 Oxygen Delivery Me thod Room Air Nasal Cannula Oxygen Flow Rate 2 12/15/21 20:00 12/15/21 21:00 12/15/21 21:30 Temperature Pulse Rate Pulse Rate [Right Pulse Oximeter] 93 94 95 Respiratory Rate Blood Pressure [Ri ght Arm] Blood Pressure [Ri ght Upper Arm] 117/47 L 120/60 Pulse Oximetry 91 93 94 Oxygen Delivery Me thod Room Air Nasal Cannula Nasal Cannula Oxygen Flow Rate 2 2 12/15/21 22:04 12/15/21 22:19 12/15/21 22:21 Temperature 96.9 F L 96.9 F L Pulse Rate 89 Pulse Rate [Right Pulse Oximeter] Respiratory Rate 16 16 Blood Pressure [Ri ght Arm] 142/84 H 142/84 H Blood Pressure [Ri ght Upper Arm] Pulse Oximetry 94 94 Oxygen Delivery Me thod Nasal Cannula Nasal Cannula Oxygen Flow Rate 2 2 12/15/21 22:33 12/15/21 22:49 12/16/21 00:19 Temperature 97.2 F L Pulse Rate Pulse Rate [Right Pulse Oximeter] Respiratory Rate 16 16 Blood Pressure [Ri ght Arm] 145/72 H Blood Pressure [Ri ght Upper Arm] Pulse Oximetry 94 94 92 Oxygen Delivery Me thod Nasal Cannula Nasal Cannula Oxygen Flow Rate 2 2 12/16/21 01:37 12/16/21 01:37 12/16/21 06:25 Temperature 97 F L Pulse Rate Pulse Rate [Right Pulse Oximeter] 79 Respiratory Rate 16 16 16 Blood Pressure [Ri ght Arm] 150/73 H Blood Pressure [Ri ght Upper Arm] Pulse Oximetry 92 93 Oxygen Delivery Me thod Nasal Cannula Nasal Cannula Oxygen Flow Rate 2 2 Labs Labs: Laboratory Results - last 24 hr 12/15/21 12/15/21 12/15/21 19:15 19:15 19:15 WBC 5.20 RBC 5.01 Hgb 14.6 Hct 44.9 MCV 90 MCH 29 MCHC 33 RDW Coeff of Mary 12.9 Plt Count 232 Neut % (Auto) 69.6 Lymph % (Auto) 17.5 L Power % (Auto) 12.5 H Eos % (Auto) 0.0 Baso % (Auto) 0.2 Neut # (Auto) 3.62 Lymph # (Auto) 0.90 Power # (Auto) 0.70 Eos # (Auto) 0.00 Baso # (Auto) 0.01 Abs Immat Gran (auto) 0.01 Imm/Tot Granulo (auto) 0.2 VBG pH VBG pCO2 VBG pO2 VBG HCO3 Sodium 134 L Potassium 4.2 Chloride 99 Carbon Dioxide 27 BUN 15 Creatinine 0.7 Estimated Creat Clear 45.54 Estimated GFR 97 Glucose 102 Calcium 8.9 C-Reactive Protein 2.6 H SARS-CoV-2 (PCR) Negative SARS-CoV-2 Influenza Type A (PCR) POSITIVE PCR FLU A A Influenza Type B (PCR) Negative PCR FLU B RSV (PCR) Negative PCR RSV 12/15/21 19:15 WBC RBC Hgb Hct MCV MCH MCHC RDW Coeff of Mary Plt Count Neut % (Auto) Lymph % (Auto) Power % (Auto) Eos % (Auto) Baso % (Auto) Neut # (Auto) Lymph # (Auto) Power # (Auto) Eos # (Auto) Baso # (Auto) Abs Immat Gran (auto) Imm/Tot Granulo (auto) VBG pH 7.366 VBG pCO2 50 VBG pO2 43.0 VBG HCO3 29 H Sodium Potassium Chloride Carbon Dioxide BUN Creatinine Estimated Creat Clear Estimated GFR Glucose Calcium C-Reactive Protein SARS-CoV-2 (PCR) Influenza Type A (PCR) Influenza Type B (PCR) RSV (PCR)
[2021-12-16 09:26] LABS: HCO3 VBG 27 mmol/L (21-28); PCO2 VBG 43 mmHG (40-50); PO2 VBG 54.7 mmHG (25-47); pH VBG 7.404 (7.32-7.43)
[2021-12-16 09:34] LABS: Hematocrit 42.7 % (33.0-51.0); Mean Corpuscular HGB Conc 33 gm/dL (32-36); Mean Corpuscular Hemoglobin 29 pg (26-34); Mean Corpuscular Volume 89 fL (80-100); Platelet Count* 235 K/uL (140-440); Red Blood Count 4.79 m/uL (4.00-5.20); White Blood Count* 4.23 K/uL (4.50-11.00)
[2021-12-16] MEDS: BUDESONIDE 0.5 MG/2ML NEB NEB (09:36)
[2021-12-16] MEDS: FLUTICASONE PROPIONATE NASAL 2 SPRAY NOSTRIL-B (09:36)
[2021-12-16] MEDS: OSELTAMIVIR 30 MG CAPSULE PO (09:37)
[2021-12-16 09:38] LABS: Slide Review Reflex No
--- NOTE | 2021-12-16 10:20 | PC.NURSE ---
Pt pleasant and cooperative, moving indep in room. wheezes to bilateral lungs, pt reports this is much improved from yesterday. Pt able to tolerate RA this AM, turned off 2L per NC and sats 90-91% - encouraged C&DB in room.
[2021-12-16 10:53] LABS: Chloride* 100 mmol/L (96-114)
[2021-12-16 10:54] LABS: Potassium* 4.4 mmol/L (3.6-5.1); Sodium* 136 mmol/L (135-149)
[2021-12-16 10:56] LABS: Bilirubin Total* 0.5 mg/dL (0.1-1.5); Creatinine* 0.5 mg/dL (0.5-1.5); Est. Creatinine Clearance* 45.54; Estimated Glomerular Filt Rate 105 ml/min
[2021-12-16 10:57] LABS: Alanine Aminotransferase* 17 U/L (4-35); Alkaline Phosphatase* 66 U/L (40-150); Aspartate Amino Transferase* 26 U/L (12-35); Blood Urea Nitrogen* 15 mg/dL (7-30); Calcium* 8.3 mg/dL (8.4-10.6); Carbon Dioxide* 23 mmol/L (20-32); Glucose* 121 mg/dL (60-115); Magnesium* 1.9 mg/dL (1.5-2.6); Total Protein* 7.4 g/dL (6.0-8.3)
[2021-12-16 11:06] LABS: NT Pro B Type NatriureticPept* 137 PG/mL (0-125)
[2021-12-16 11:14] LABS: Procalcitonin* 0.09 ng/mL (<0.50)
[2021-12-16 11:15] LABS: Troponin I* < 0.01 ng/mL (0.01-0.04)
--- NOTE | 2021-12-16 14:37 | PC.NURSE ---
reviewed d/c instructions with patient. IV removed. Fluticasone labeled by pharmacy and sent with patient. pt denied any further questions. Pt finishing up lunch and then will be picked up by .
--- NOTE | 2021-12-16 16:52 | P.DS_ITS ---
DS: Providers Provider Date Seen: 12/16/21 Date of admission: 12/15/21 20:53 Primary care physician: Not a Local Provider Admitting Clinician: Cm Haney MD Consults: 12/15/21 22:51 Consult to Respiratory Therapy [CONS] Routine Comment: Reason(s) for RT Consult:: Consult Comment: influenza and copd exacerbation Attending Physician on discharge: Lelo Jung MD [facility] Date of Discharge: 12/16/21 DS: Diagnosis Discharge Diagnosis (1) Influenza A: Status: Acute Problem details: Finish Tamiflu course. Droplet precautions with her family members. We discussed prophylaxis of Tamiflu for highest risk contacts. (2) COPD exacerbation: Status: Acute Problem details: Finish prednisone course. Recommended outpatient pulmonary consultation for COPD. DS: Summary Hospital Course Hospital Course: HOSPITALIST DISCHARGE SUMMARY ATTENDING PHYSICIAN: Lelo Jung MD FINAL DIAGNOSIS: Influenza a Mild hypoxic respiratory failure secondary to influenza and COPD exacerbation without hypercapnia COPD HOSPITAL FOLLOWUP ISSUES: 1. Finish Tamiflu and prednisone courses 2. Recommended outpatient pulmonary medicine evaluation REFERRALS WHILE ADMITTED: None REFERRALS AFTER DISCHARGE: None BRIEF HOSPITAL COURSE: Patient was admitted overnight for hypoxic respiratory failure secondary to influenza a and COPD exacerbation. Within 24 hours she was off oxygen and feeling much better. We treated her with prednisone, Tamiflu. She will be discharged on the rest of her Tamiflu prescription and a prednisone burst without taper. She would like to establish care with a [facility] primary care physician. I did recommend 1 she is well to get a referral to Pulmonary Medicine for a COPD evaluation. SUBSTANTIVE NOTATIONS ON IMAGING, LAB, MICROBIOLOGY/PATHOLOGY STUDIES: DISCHARGE MEDICATIONS: See Reconciled list - SIGNIFICANT CHANGES: REVIEW OF SYSTEMS No new chest pain or dyspnea Pain controlled No voiding difficulties Tolerating diet challenge PHYSICAL EXAM: CONSTITUTIONAL: Bright, no acute distress VITAL SIGNS: see record. HEENT: Normocephalic, atraumatic. PERRL, EOMI, conjunctivae pink, no scleral icterus. Ears and nose externally normal. Pharynx normal. NECK: No JVD. No carotid bruit, no thyromegaly, no adenopathy. CHEST: Clear to auscultation bilaterally. HEART: S1 and S2 normal. Edema ABDOMEN: Soft, nontender. Normal bowel sounds. MUSCULOSKELETAL: No gross joint deformity or swelling. NEURO: Cranial nerves intact. Grossly intact. No asymmetric findings. SKIN: No rashes, petechiae, concerning changes PSYCHIATRIC: Mood euthymic. DISPOSITION: Home Time spent on discharge 37 minutes. Status at Discharge Functional status at discharge: independent ambulation Overall status at discharge: patient is progressing back to baseline Time Spent with Patient Time attestation: Total time spent providing and/or coordinating discharge services: Time spent: Greater than 30 minutes Exam Const: Vital Signs, click to edit/add: Vital Signs - 24 hr 12/15/21 18:03 12/15/21 19:00 12/15/21 18:57 Temperature 97.8 F Pulse Rate Pulse Rate [Right Pulse Oximeter] 100 89 Respiratory Rate 16 Blood Pressure [Ri ght Arm] Blood Pressure [Ri ght Upper Arm] 154/68 H 144/76 H Pulse Oximetry 93 93 91 Oxygen Delivery Me thod Room Air Room Air Oxygen Flow Rate 12/15/21 20:11 12/15/21 20:30 12/15/21 18:35 Temperature Pulse Rate Pulse Rate [Right Pulse Oximeter] Respiratory Rate Blood Pressure [Ri ght Arm] Blood Pressure [Ri ght Upper Arm] 130/68 176/77 H Pulse Oximetry 89 93 Oxygen Delivery Me thod Room Air Nasal Cannula Oxygen Flow Rate 2 12/15/21 20:00 12/15/21 21:00 12/15/21 21:30 Temperature Pulse Rate Pulse Rate [Right Pulse Oximeter] 93 94 95 Respiratory Rate Blood Pressure [Ri ght Arm] Blood Pressure [Ri ght Upper Arm] 117/47 L 120/60 Pulse Oximetry 91 93 94 Oxygen Delivery Me thod Room Air Nasal Cannula Nasal Cannula Oxygen Flow Rate 2 2 12/15/21 22:04 12/15/21 22:19 12/15/21 22:21 Temperature 96.9 F L 96.9 F L Pulse Rate 89 Pulse Rate [Right Pulse Oximeter] Respiratory Rate 16 16 Blood Pressure [Ri ght Arm] 142/84 H 142/84 H Blood Pressure [Ri ght Upper Arm] Pulse Oximetry 94 94 Oxygen Delivery Me thod Nasal Cannula Nasal Cannula Oxygen Flow Rate 2 2 12/15/21 22:33 12/15/21 22:49 12/16/21 00:19 Temperature 97.2 F L Pulse Rate Pulse Rate [Right Pulse Oximeter] Respiratory Rate 16 16 Blood Pressure [Ri ght Arm] 145/72 H Blood Pressure [Ri ght Upper Arm] Pulse Oximetry 94 94 92 Oxygen Delivery Me thod Nasal Cannula Nasal Cannula Oxygen Flow Rate 2 2 12/16/21 01:37 12/16/21 01:37 12/16/21 06:25 Temperature 97 F L Pulse Rate Pulse Rate [Right Pulse Oximeter] 79 Respiratory Rate 16 16 16 Blood Pressure [Ri ght Arm] 150/73 H Blood Pressure [Ri ght Upper Arm] Pulse Oximetry 92 93 Oxygen Delivery Me thod Nasal Cannula Nasal Cannula Oxygen Flow Rate 2 2 12/16/21 07:00 12/16/21 07:00 Temperature 97.9 F Pulse Rate Pulse Rate [Right Pulse Oximeter] 83 83 Respiratory Rate 18 18 Blood Pressure [Ri ght Arm] 137/71 Blood Pressure [Ri ght Upper Arm] Pulse Oximetry 91 Oxygen Delivery Me thod Room Air Oxygen Flow Rate 0 DS: Data Data Completed and Pending Labs on day of discharge: Labs from last 24 hours 12/16/21 12/16/21 12/16/21 09:16 09:16 09:16 WBC 4.23 L RBC 4.79 Hgb 14.0 Hct 42.7 MCV 89 MCH 29 MCHC 33 RDW Coeff of Mary Plt Count 235 Neut % (Auto) Lymph % (Auto) [place] % (Auto) Eos % (Auto) Baso % (Auto) Neut # (Auto) Lymph # (Auto) [place] # (Auto) Eos # (Auto) Baso # (Auto) Abs Immat Gran (auto) Imm/Tot Granulo (auto) VBG pH 7.404 VBG pCO2 43 VBG pO2 54.7 H VBG HCO3 27 Sodium 136 Potassium 4.4 Chloride 100 Carbon Dioxide 23 BUN 15 Creatinine 0.5 Estimated Creat Clear 45.54 Estimated GFR 105 Glucose 121 H Calcium 8.3 L Magnesium 1.9 Total Bilirubin 0.5 AST 26 ALT 17 Alkaline Phosphatase 66 Troponin I < 0.01 L C-Reactive Protein 2.0 H NT-Pro-B Natriuret Pep 137 H Total Protein 7.4 Albumin 4.0 Procalcitonin 0.09 SARS-CoV-2 (PCR) Influenza Type A (PCR) Influenza Type B (PCR) RSV (PCR) 12/15/21 12/15/21 12/15/21 19:15 19:15 19:15 WBC RBC Hgb Hct MCV MCH MCHC RDW Coeff of Mary Plt Count Neut % (Auto) Lymph % (Auto) [place] % (Auto) Eos % (Auto) Baso % (Auto) Neut # (Auto) Lymph # (Auto) [place] # (Auto) Eos # (Auto) Baso # (Auto) Abs Immat Gran (auto) Imm/Tot Granulo (auto) VBG pH 7.366 VBG pCO2 50 VBG pO2 43.0 VBG HCO3 29 H Sodium 134 L Potassium 4.2 Chloride 99 Carbon Dioxide 27 BUN 15 Creatinine 0.7 Estimated Creat Clear 45.54 Estimated GFR 97 Glucose 102 Calcium 8.9 Magnesium Total Bilirubin AST ALT Alkaline Phosphatase Troponin I C-Reactive Protein 2.6 H NT-Pro-B Natriuret Pep Total Protein Albumin Procalcitonin SARS-CoV-2 (PCR) Negative SARS-CoV-2 Influenza Type A (PCR) POSITIVE PCR FLU A A Influenza Type B (PCR) Negative PCR FLU B RSV (PCR) Negative PCR RSV 12/15/21 19:15 WBC 5.20 RBC 5.01 Hgb 14.6 Hct 44.9 MCV 90 MCH 29 MCHC 33 RDW Coeff of Mary 12.9 Plt Count 232 Neut % (Auto) 69.6 Lymph % (Auto) 17.5 L [place] % (Auto) 12.5 H Eos % (Auto) 0.0 Baso % (Auto) 0.2 Neut # (Auto) 3.62 Lymph # (Auto) 0.90 [place] # (Auto) 0.70 Eos # (Auto) 0.00 Baso # (Auto) 0.01 Abs Immat Gran (auto) 0.01 Imm/Tot Granulo (auto) 0.2 VBG pH VBG pCO2 VBG pO2 VBG HCO3 Sodium Potassium Chloride Carbon Dioxide BUN Creatinine Estimated Creat Clear Estimated GFR Glucose Calcium Magnesium Total Bilirubin AST ALT Alkaline Phosphatase Troponin I C-Reactive Protein NT-Pro-B Natriuret Pep Total Protein Albumin Procalcitonin SARS-CoV-2 (PCR) Influenza Type A (PCR) Influenza Type B (PCR) RSV (PCR) Discharge Plan Discharge Disposition: Home, Self-Care Date of Admission: 12/15/21 20:53 Attending Provider on Discharge: Lelo Jung Primary Care Provider: Provider,Not a Local Condition: Stable Anticipated Discharge Date/Time: 12/16/21 12:07 Discharge Medications: New prednisone 20 mg Tablet 40 mg PO DAILYWM Qty: 6 0RF benzonatate 100 mg Capsule 200 mg PO TID Qty: 20 0RF oseltamivir [Tamiflu] 30 mg Capsule 30 mg PO BID Qty: 8 0RF Continued sertraline 25 mg tablet 25 mg PO DAILY fluticasone propionate 50 mcg/actuation spray,suspension 2 spray INTRANASAL DAILY bupropion HCl 150 mg tablet extended release 24 hr 150 mg PO DAILY budesonide-formoterol 160-4.5 mcg/actuation HFA aerosol inhaler 2 puff INHALATION BID Combivent Respimat 20-100 mcg/actuation mist 1 puff INHALATION QID PRN Discharge Orders: Discharge Order (Routine); Ordered 12/16/21 Ordered By: Lelo Jung Patient Education: Benzonatate (By mouth), Prednisone (By mouth), Oseltamivir (By mouth), Influenza (DC), COPD (Chronic Obstructive Pulmonary Disease) (DC) Additional Instructions: Take the benzonatate as needed for cough, this doesn't have to be taken Take the rest of the prednisone and Tamiflu as prescribed I'd like you to establish care with [facility] primary [facility] and see a acquisition marketing manager for a full COPD exam. Discharge Diet: Regular Follow Up Appointments: Shayan Fitzpatrick MD [Staff Physician] - 12/21/21 3:00 pm (Follow up with also needs pulmonary referral.) Forms: [employer] Info Instructions
== END 2021-12-16 15:02 | disposition home or self-care (01) ==
LOC: ED 20:47 → MEDSURG 20:53
PROVIDERS: Family Medicine; Admitting Provider Internal Medicine; Emergency Provider Family Medicine; Visit Provider Internal Medicine
DX: J44.1 Chronic obstructive pulmonary disease with (acute) exacerbation (principal); J96.91 Respiratory failure, unspecified with hypoxia; J10.1 Influenza due to other identified influenza virus with other respiratory manifestations; N18.31 Chronic kidney disease, stage 3a; R05.9 Cough, unspecified; Z87.891 Personal history of nicotine dependence; J30.2 Other seasonal allergic rhinitis; Z90.49 Acquired absence of other specified parts of digestive tract; M79.10 Myalgia, unspecified site; R53.83 Other fatigue; R53.1 Weakness
CPT/HCPCS: 36415; 71046; 80048; 80053; 82803; 83735; 83880; 84145; 84484; 85025; 85027; 86140; 87040; 87502; 87634; 87635; 94640; 94761; 96361; 96374; 99284; 99285; A9270; G0378; J2930; J7120; J7512; J7626

== ENCOUNTER 2022-09-24 16:21 | Outpatient (CLI) | payer BC, OTHER, SELFPAY | END 2022-09-24 16:22 | disposition home or self-care (01) | PROVIDERS: PCP Internal Medicine; Visit Provider Family Medicine | DX: R06.00 Dyspnea, unspecified (principal) | CPT/HCPCS: 83880; 85379 ==

== ENCOUNTER 2022-12-07 08:50 | Outpatient (CLI) | payer BC, OTHER, SELFPAY | END 2022-12-07 08:51 | disposition home or self-care (01) | LOC: NFLDREF 12-10 12:51 | PROVIDERS: PCP Family Medicine; Referring Provider Family Medicine; Visit Provider Family Medicine | DX: F41.9 Anxiety disorder, unspecified (principal); I10 Essential (primary) hypertension; R53.83 Other fatigue; Z13.6 Encounter for screening for cardiovascular disorders | CPT/HCPCS: 80053; 80061; 84443 ==

== ENCOUNTER 2022-12-21 09:34 | Outpatient (CLI) | payer BC, OTHER, SELFPAY | END 2022-12-21 09:35 | disposition home or self-care (01) | LOC: NFLDREF 12-25 19:51 | PROVIDERS: PCP Family Medicine; Referring Provider Family Medicine; Visit Provider Family Medicine | DX: I10 Essential (primary) hypertension (principal) | CPT/HCPCS: 80048 ==

== ENCOUNTER 2023-03-08 14:54 | Outpatient (CLI) | payer BC, OTHER, SELFPAY ==
--- OUTSIDE RECORDS SUMMARY | 2023-03-13 11:58 | XMS_ITS | Clinical Summary ---
Author Name Unknown Organization [facility] Address [address] [place] [address] Care Team Providers Care Grocery Department Manager Name Role Phone Unavailable Primary Care Provider Unavailabl e Encounters Date Type Department Care Team Description 12/19/2022 8:00 AM MANAGER DENTAL - 12/19/2022 11:59 PM MANAGER DENTAL Hospital Encounter [facility] Card[facility] Pulmonary Rehabilitation [address] [place] [address] Alexys Barragan MD 2, Rh Pul[facility] Discharge Disposition: Home or Self Care 12/19/2022 Travel from Last 3 Months Social History Tobacco Use Types Packs/Day Years Used Date Smoking Tobacco: Never Assessed Adolescent Education Answer Date Record ed Getting School Help Needed Not on file 12/10 Sex and Gender Information Value Date Recorded Sex Assigned at Not on file Gender Identity Not on file Sexual Orientation Not on file Plan of Treatment Health Maintenance Due Date Last Done Comments ADVANCE CARE PLANNING 1960 ANNUAL REVIEW OF HM ORDERS 1958 COPD ACTION PLAN [address] CT COLONOGRAPHY 1958 FIT 1958 FLEX SIG 1958 SPIROMETRY 1958 sDNA (Cologuard) 1958 COLONOSCOPY 02/28/1968 COLORECTAL CANCER SCREENING 02/28/1968 HIV SCREENING 1973 HEPATITIS C SCREENING 02/28/1976 LIPID 2003 RSV VACCINE ( & 60+) (1 - 1-dose 60+ series) 2018 PHQ-2 (once per calendar year) 2023 YEARLY PREVENTIVE VISIT 10/30/2023 10/30/19 23, 08/29/2021, 04/27/2020, Additional history exists Pneumococcal Vaccine: Pediatrics (0 to 5 Years) and At-Risk Patients (6 to 64 Years) (3 of 3 - PPSV23 or PCV20) 12/03/2023 12/02/2018, 06/27/2016 MAMMO SCREENING 11/14/2024 11/14/2022, 08/0 03/2021, 04/27/2020, Additional history exists PAP 10/29/2025 10/29/2022 DTAP/TDAP/TD IMMUNIZATION (2 - Td or Tdap) 07/02/2026 07/02/2016, 06/19/2003 ZOSTER IMMUNIZATION Completed 01/31/2019, INFLUENZA VACCINE Completed 11/22/2022, , 10/27/2020, Additional history exists COVID-19 Vaccine Completed 12/07/2022, , 06/17/2021, Additional history exists HPV IMMUNIZATION Aged Out No longer e ligible based on patient's age to complete this topic IPV IMMUNIZATION Aged Out No longer e ligible based on patient's age to complete this topic MENINGITIS IMMUNIZATION Aged Out No l onger eligible based on patient's age to complete this topic RSV MONOCLONAL ANTIBODY Aged Out No l onger eligible based on patient's age to complete this topic Procedures Procedure Name Priority Date/Time Associated Diagnosis Comments OXIMETRY - HIM SCAN 12/19/2022 12:00 AM MANAGER DENTAL from Last 3 Months Results * OXIMETRY - HIM SCAN (12/19/2022 12:00 AM MANAGER DENTAL) 12/19/2022 Provider Outside PFT ORDERABLES from Last 3 Months
--- OUTSIDE RECORDS SUMMARY | 2023-03-13 11:58 | XMS_ITS | Encounter Summary ---
Author Name Unknown Organization [facility] Address [address] [place] [address] Care Team Providers Care Music Autographer Name Role Phone [facility] able Unavailable Tracy Heart PA-C Primary Care Provider [phone] Encounter Details Date Type Department Care Team (Latest Contact Info) Description 11/14/2022 8:50 AM CDT - 11/14/2022 11:59 PM CDT Hospital Encounter [facility] [address] [place] [address], [address] [place], [place] [id number] Discharge Disposition: Returning Home/Self Care Social History Tobacco Use Types Packs/Day Years Used Date Smoking Tobacco: Former Cigarettes 1 45 Q uit: 06/18/2017 Smokeless Tobacco: Never Comments:doesn't smoke in he r house Alcohol Use Standard Drinks/Week Comments No 0 (1 standard drink = 0.6 oz pur e alcohol) PHQ-2 Answer Date Recorded PHQ2 Total 3 10/29/2022 Sex and Gender Information Value Date Recorded Sex Assigned at Not on file Gender Identity Not on file Sexual Orientation Not on file documented as of this encounter Medications at Time of Discharge Medication Sig Dispensed Refills Start Date End Date albuterol HFA (PROVENTIL;VENTOLIN HFA) 90 mcg/actuation Inhl inhalerIndications: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 Teacher sherrie 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 with COPD (chronic obstructive pulmonary disease) INHALE 2 PUFFS BY MOUTH EVERY 4 TO 6 HOURS NEEDED FOR SHORTNESS OF BREATH OR WHEEZING 8.5 g 1 10/29/2022 COMBIVENT RESPIMAT 20-100 mcg/actuation Inhl Mist inhalerIndications:COPD with exacerbation (HCC) INHALE 1 PUFF BY MOUTH FOUR TIMES DAILY NEEDED 12 g 3 04/14/2022 fluticasone (FLONASE) 50 mcg/actuation nasal sprayIndications:Chroni c bronchitis with COPD (chronic obstructive pulmonary disease) SHAKE LIQUID AND USE 2 SPRAYS IN EACH NOSTRIL EVERY DAY 48 g 3 08/29/2021 Miscellaneous Medical Supply Nebulizer with tubing and face mask 1 each 0 05/22/2019 budesonide 160 mcg-formoterol 4.5 mcg (SYMBICORT) 160-4.5 mcg/actuation Inhl HFAA inhalerIndications:Ehs Teacher sherrie obstructive pulmonary disease, unspecified COPD type (HCC) INHALE 2 PUFFS BY MOUTH TWICE DAILY 30.6 g 1 07/06/2022 01/15/2023 buPROPion XL (WELLBUTRIN XL) 150 mg oral extended release tablet 24 HRIndications:Depressio n, major, recurrent, moderate (HCC) TAKE 1 TABLET(150 MG) BY MOUTH EVERY DAY 90 tablet 0 09/06/2022 11/26/2022 sertraline (ZOLOFT) 25 mg oral tabletIndications:Curre nt moderate episode of major depressive disorder without prior episode (HCC) TAKE 1 TABLET(25 MG) BY MOUTH EVERY DAY 90 tablet 0 10/22/2022 01/10/2023 documented as of this encounter Plan of Treatment Not on file documented as of this encounter Procedures Procedure Name Priority Date/Time Associated Diagnosis Comments MAMMO SALVADOR SCREENING BI Routine 11/14/2022 9:04 AM CDT Visit for screening mammogram documented in this encounter Results * MAMMO (ESSENCE) SALVADOR SCREENING BI (11/14/2022 9:04 AM CDT) Anatomical Region Laterality Modality Breast Bilateral Mammography Impressions 11/14/2022 9:28 AM CDT : There is no mammographic evidence of malignancy. ? RECOMMENDATION: ? - A screening mammogram in 1 year. BI-RADS: Overall: 2 - Benign The patient will be notified of the results. REPORT SIGNED BY MD Gregg Marmolejo 11/14/2022 9:28 AM CDT EXAM: MAMMO (MDIP) SALVADOR SCREENING BI REASON FOR EXAM: Routine screening mammogram COMPARISON: ??Compared to: 09/12/2021 MAMMO SALVADOR SCREENING BI, 05/02/2020 MAMMO BX STEREO W CLIP RT, 04/27/2020 MAMMO PROB SOLV CALC ONLY RT, 04/22/2020 MAMMO SALVADOR SCREENING BI, and 11/03/2018 MAMMO DIGITAL SCREENING BI TECHNIQUE: Craniocaudal and oblique digital views were obtained. ??Tomosynthesis technique was also utilized. Current study was evaluated with Computer Aided Detection (CAD) system. FINDINGS: The breasts are heterogeneously dense. ??There is a biopsy marking clip present in the right breast. ??No significant masses, calcifications, or other findings are seen. ??There has been no significant interval change. Tracy Heart PA-C MAMMO ORDERABLE documented in this encounter Visit Diagnoses Diagnosis Visit for screening mammogram Other screening mammogram documented in this encounter Care Teams Music Autographer Relationship Specialty Start Date End Date [facility] PCP - Primary Care Clinic Family Medicine 08/21/19 Tracy Heart PA-C [address] [place] [address] PCP - General Family Medicine 10/29/22 documented as of this encounter
--- OUTSIDE RECORDS SUMMARY | 2023-03-13 11:58 | XMS_ITS | Encounter Summary ---
Author Name Unknown Organization [facility] Address [address] [place] [address] Care Team Providers Care Investment Banking Analyst Name Role Phone Unavailable Primary Care Provider Unavailabl e Encounter Details Date Type Department Care Team (Latest Contact Info) Description 12/19/2022 Travel Social History Tobacco Use Types Packs/Day [...] on file documented as of this encounter Visit Diagnoses Not on filedocumented in this encounter
--- OUTSIDE RECORDS SUMMARY | 2023-03-13 11:58 | XMS_ITS | Encounter Summary ---
Author Name Unknown Organization [facility] Address [address] [place] [address] Care Team Providers Care Enterostomal Therapy Nurse Name Role Phone Unavailable Primary Care Provider Unavailabl e Reason for Referral * Rehab Therapy Cardiac Therapy (Routine) - Closed Specialty Diagnoses / Procedures Referred By Dominga t Referred To Contact CARDIAC REHAB Diagnoses COPD, severe (H) [address] [address] Referral ID Status Reason Start Date Expiration Date Visits Re quested Visits Authorized [id number] Closed 12/11/2022 02/10/2023 365 365 Question Answer Reason for Referral COPD - Severe Preferred Location: [facility] Scheduling Instructions: If you have not heard from the scheduling office within 2 business days, please call [phone] for [employer], for [employer] and [phone] for [place]. Additional Information: Oxygen to be applied as needed for desaturation < 88% at rest and with exertion (below 90% if diagnosis of pulmonary hypertension). Comments Please be aware that coverage of these services is subject to the terms and limitations of your health insurance plan. Call member services at your health plan with any benefit or coverage questions. If you have not heard from the scheduling office within 2 business days, please call [phone] for [employer], for [employer] and [phone] for [place]. Encounter Details Date Type Department Care Team (Latest Contact Info) Description 12/10/2022 Transcribe Orders GENERIC EXTERNAL DATA DEPARTMENT Alexys Barragan MD [facility] [address] [address] COPD, severe (H) (Primary Dx) Social History Tobacco Use Types Packs/Day Years Used Date Smoking Tobacco: Never Assessed Adolescent Education Answer Date Record ed Getting School Help Needed Not on file 12/10 Sex and Gender Information Value Date Recorded Sex Assigned at Not on file Gender Identity Not on file Sexual Orientation Not on file documented as of this encounter Plan of Treatment Scheduled Referrals Name Type Priority Associated Diagnoses Orde r Schedule Pulmonary Rehab Referral Referral Routine COPD, severe (H) Ordered: 12/10/2022 documented as of this encounter Visit Diagnoses Diagnosis COPD, severe (H)- Primary Chronic airway obstruction, not elsewhere classified documented in this encounter
--- OUTSIDE RECORDS SUMMARY | 2023-03-13 11:58 | XMS_ITS | Referral Summary ---
Author Name Unknown Organization [facility] Address [address] [place] [address] Care Team Providers Care Rn Social Services Name Role Phone [facility] able Unavailable Tracy Heart PA-C Primary Care Provider [phone] Allergies Active Allergy Reactions Criticality Noted Date Comments Mold (Juan) Runny Nose 02/16/2015 Medications Medication Sig Dispensed Refills Start Date End Date Status Miscellaneous Medical Supply Nebulizer with tubing and face mask 1 each 0 05/22/2019 Active fluticasone (FLONASE) 50 mcg/actuation nasal sprayIndications: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 with COPD (chronic obstructive pulmonary disease) SHAKE LIQUID AND USE 2 SPRAYS IN EACH NOSTRIL EVERY DAY 48 g 3 08/29/2021 Active COMBIVENT RESPIMAT 20-100 mcg/actuation Inhl Mist inhalerIndications:CO PD with exacerbation (HCC) INHALE 1 PUFF BY MOUTH FOUR TIMES DAILY NEEDED 12 g 3 04/14/2022 Active albuterol HFA (PROVENTIL;VENTOLIN HFA) 90 mcg/actuation Inhl inhalerIndications:Ch ronic bronchitis with COPD (chronic obstructive pulmonary disease) INHALE 2 PUFFS BY MOUTH EVERY 4 TO 6 HOURS NEEDED FOR SHORTNESS OF BREATH OR WHEEZING 8.5 g 1 10/29/2022 Active buPROPion XL (WELLBUTRIN XL) 150 mg oral extended release tablet 24 HRIndications:Depress ion, major, recurrent, moderate (HCC) TAKE 1 TABLET(150 MG) BY MOUTH EVERY DAY 90 tablet 3 11/26/2022 Active budesonide 160 mcg-formoterol 4.5 mcg (SYMBICORT) 160-4.5 mcg/actuation Inhl HFAA inhalerIndications:Ch ronic obstructive pulmonary disease, unspecified COPD type (HCC) INHALE 2 PUFFS BY MOUTH TWICE DAILY 30.6 g 3 01/15/2023 Active sertraline (ZOLOFT) 25 mg oral tabletIndications:Cur rent moderate episode of major depressive disorder without prior episode (HCC) TAKE 1 TABLET(25 MG) BY MOUTH EVERY DAY 90 tablet 2 01/10/2023 Active Active Problems Problem Noted Date Diagnosed Date Depression, major, recurrent, moderate 3 Chronic obstructive pulmonar y disease, unspecified COPD type 09/03/2017 Chronic bronchitis with COPD (chronic obstructive pulmonary disease) 07/02/2016 Blood pressure elevated without history of HTN 0 07/02/2016 Smoking greater than 30 pack years 02/16/2015 Resolved Problems Problem Noted Date Diagnosed Date Resolved Date Closed displaced segmental f racture of shaft of right humerus with routine healing 11/18/2019 Closed fracture of right proximal humerus 09/10/2019 04/27/2020 Overview: Last Assessment & Plan: 59yo RHD F 3 weeks s/p right proximal humerus and humeral shaft fracture, treated non-op in a Wilhelm brace, with some increased varus angulation of shaft fracture on x-ray today but still WNL for non-op mgmt. -Continue Wilhelm brace - okay to remove for hygiene -No heavy lifting, pushing, or pulling with right hand -Encouraged elbow/wrist/hand ROM as tolerated -Rest, ice, and OTC pain mgmt as needed -Continue calcium and vitamin D supplements Immunizations Name Administration Dates Next Due SHINGRIX 01/31/2019,10/25/2018 Influenza 11/09/2021,,10/25/2018,2016,12/26/2007 Moderna 12+ Yrs Bivalent COV ID Vaccine 11/09/2021 Pneumococcal 13-Edith (Prevnar 13) 06/27/2016 Pneumococcal 23-Edith (Pneumovax) 12/02/2018 SPIKEVAX (Moderna) 12+ Yrs M ONOVALENT COVID Vaccine 05/28/2020,04/30/2020 Td >7 Yrs 06/19/2003 Tdap >7 yrs 07/02/2016 Social History Tobacco Use Types Packs/Day Years Used Date Smoking Tobacco: Former Cigarettes 1 45 Q uit: 06/18/2017 Smokeless Tobacco: Never Tobacco Cessation:Counseling Given: Not Answered Comments:doesn't smoke in her house Alcohol Use Standard Drinks/Week Comments No 0 (1 standard drink = 0.6 oz pur e alcohol) PHQ-2 Answer Date Recorded PHQ2 Total 3 10/29/2022 Sex and Gender Information Value Date Recorded Sex Assigned at Not on file Gender Identity Not on file Sexual Orientation Not on file Last Filed Vital Signs Vital Sign Reading Time Taken Comments Blood Pressure 142/82 10/29/2022 8:47 AM CDT Pulse 80 10/29/2022 8:30 AM CDT Temperature 36.7 ??C (98.1 ??F) 10/29/2022 8:30 AM CD T Respiratory Rate 16 08/21/2019 10:39 AM CDT Oxygen Saturation 96% 04/27/2020 10:16 AM CDT Inhaled Oxygen Concentration - - Weight 84.5 kg (186 lb 3.2 oz) 10/29/2022 8:30 A M CDT Height 156.2 cm (5' 1.5) 10/29/2022 8:30 AM CDT Body Mass Index 34.61 10/29/2022 8:30 AM CDT Plan of Treatment Not on file Medical Devices Implanted Type Area Silver Designer Device Identifier Shelf Expiration Date Model / Serial / Lot Stereo Bx/Hydromark T3-05/02/2020 Implanted:Qty: 1 on 05/02/2020 by Delia Gonzales MD Clip / / [id number] Care Teams Rn Social Services Relationship Specialty Start Date End Date [facility] PCP - Primary Care Clinic Family Medicine 08/21/19 Tracy Heart PA-C [address] [place] [address] PCP - General Family Medicine 10/29/22
--- OUTSIDE RECORDS SUMMARY | 2023-03-13 11:58 | XMS_ITS | Encounter Summary ---
Author Name Unknown Organization [facility] Address [address] [place] [address] Care Team Providers Care Disaster Or Damage Control Specialist Name Role Phone [facility] Unavail able Unavailable Tracy Heart PA-C Primary Care Provider [phone] Encounter Details Date Type Department Care Team (Latest Contact Info) Description 10/29/2022 Travel Social History Tobacco Use Types Packs/Day [...] on filedocumented in this encounter Care Teams Disaster Or Damage Control Specialist Relationship Specialty Start Date End Date [facility] PCP - Primary Care Clinic Family Medicine 08/21/19 Tracy Heart PA-C [address] [place] [address] PCP - General Family Medicine 10/29/22 documented as of this encounter
--- OUTSIDE RECORDS SUMMARY | 2023-03-13 11:58 | XMS_ITS | Encounter Summary ---
Author Name Unknown Organization [facility] Address [address] [place] [address] Care Team Providers Care Cabinet Worker Name Role Phone Unavailable Primary Care Provider Unavailabl e Reason for Visit * Rehab Therapy Cardiac Therapy (Routine) - Closed Specialty Diagnoses / Procedures Referred By Dominga t Referred To Contact CARDIAC REHAB Diagnoses COPD, severe (H) [address] [address] Referral ID Status Reason Start Date Expiration Date Visits Re quested Visits Authorized [id number] Closed 12/11/2022 02/10/2023 365 365 Encounter Details Date Type Department Care Team (Latest Contact Info) Description 12/19/2022 8:00 AM CERTIFIED NURSES' AIDE - 12/19/2022 11:59 PM CERTIFIED NURSES' AIDE Hospital Encounter [facility] Cardiac and Pulmonary Rehabilitation [address] [place] [address] Alexys Barragan MD [facility] [address] [address] 2, Rh Pulmonary Rehab Discharge Disposition: Home or Self Care Social History Tobacco Use Types Packs/Day [...]
--- OUTSIDE RECORDS SUMMARY | 2023-03-13 11:58 | XMS_ITS | Clinical Summary ---
Author Name Unknown Organization [facility] Address [address] [place] [address] Care Team Providers Care Industrial Rehabilitation Consultant Name Role Phone [facility] able Unavailable Tracy Heart PA-C Primary Care Provider [phone] Allergies Active Allergy Reactions Criticality Noted Date Comments Mold (Juan) Runny Nose 02/16/2015 Medications Medication Sig Dispensed Refills Start Date End Date Status Miscellaneous Medical Supply Nebulizer with tubing and face mask 1 each 0 05/22/2019 Active fluticasone (FLONASE) 50 mcg/actuation nasal sprayIndications:Prior Authorization Technician 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 with COPD (chronic obstructive pulmonary [...] Brother 1 Brother 2 Alive Father occupational ill ness unknown Mother Sister Son Social History Tobacco [...] 10/29/2022 8:30 AM CDT Plan of Treatment Health Maintenance Due Date Last Done Comments Cologuard 1960 Dexa Scan 1958 Spirometry 08/27/1962 RSV (1 - 1-dose 60+ series) 2018 Yearly Review of HCD 08/29/2022 08/29/2021, 08/21/2019, 08/21/2019, Additional history exists Lung Cancer Screening CT 09/12/2022 09/12/2021 COVID-19 Vaccine (2022-2 4 season) 2022 11/09/2021, 05/28/2020, 04/30/2020 Influenza Vaccine (#1) 2022 , 10/28/2019, 10/25/2018, Additional history exists Depression Follow-Up (PHQ-9) 01/28/2023 10/29/2022 Mammogram Screening 11/15/2023 11/14/2022, 09/12/2021, 04/27/2020, Additional history exists Pneumococcal 65+ (3 of 3 - P PSV23 or PCV20) 12/03/2023 12/02/2018, 06/27/2016 Diabetes Screening 10/29/2025 10/29/2022, 0 08/29/2021, 04/27/2020, Additional history exists Adult Tetanus Booster 07/02/2026 07/02/2016, 004 Lipid Screening 10/30/2027 10/29/2022, 0710/2021, 04/27/2020, Additional history exists Hepatitis C Screening Completed 07/02/2016 Zoster Vaccine Completed 01/31/2019, 10/25/2018 Pap Smear Discontinued 10/29/2022, 06/12, 12/26/2007 (Previously completed) Medical Devices Implanted Type Area Tipple Supervisor Device Identifier Shelf Expiration Date Model / Serial / Lot Stereo Bx/Hydromark T3-05/02/2020 Implanted:Qty: 1 on 05/02/2020 by Delia Gonzales MD Clip / / [id number] Care Teams Industrial Rehabilitation Consultant Relationship Specialty Start Date End Date [facility] PCP - Primary Care Clinic Family Medicine 08/21/19 Tracy Heart PA-C [address] [place] [address] PCP - General Family Medicine 10/29/22
--- OUTSIDE RECORDS SUMMARY | 2023-03-13 11:59 | XMS_ITS | Encounter Summary ---
Author Name Unknown Organization [facility] Address [address] [place] [address] Care Team Providers Care Assembler Garment Form Name Role Phone [facility] Tracy Heart PA-C Primary Care Provider [phone] Reason for Referral * Consultation (Routine) - Authorized Specialty Diagnoses / Procedures Referred By Dominga barnett Referred To Contact General Surgery Diagnoses Lipoma of neck Tracy Heart PA-C [address] [place] [address] Herb Alfaro In General Surgery [address] [address] Referral ID Status Reason Start Date Expiration Date Visits Requested Visits Authorized [id number] Authorized Specialty Services Required 10/29/2022 1 1 * Consultation (Routine) - Authorized Specialty Diagnoses / Procedures Referred By Dominga barnett Referred To Contact Allergy/Immunology Diagnoses Non-seasonal allergic rhinitis, unspecified trigger Tracy Heart PA-C [address] [place] [address] Pate [address] [place] [address] Referral ID Status Reason Start Date Expiration Date Visits Requested Visits Authorized [id number] Authorized Specialty Services Required 10/29/2022 1 1 Reason for Visit * Reason Comments Physical Fasting Referral request Allergy referral Encounter Details Date Type Department Care Team (Late st Contact Info) Description 10/29/2022 8:30 AM CDT Office Visit [facility] [address] [place] [phone] Tracy Heart PA-C [address] [place] [address] Annual physical exam (Primary Dx); Chronic bronchitis with COPD (chronic obstructive pulmonary disease) (HCC); Depression, major, recurrent, moderate (HCC); Non-seasonal allergic rhinitis, unspecified trigger; Lipoma of neck; Screening for diabetes mellitus (DM); Screening for hyperlipidemia; Visit for screening mammogram; Pap smear for cervical cancer screening; Special screening for malignant neoplasm of colon; Screening for rectal cancer Social History Tobacco Use Types Packs/Day Years [...] 10/29/2022 8:30 AM CD T Respiratory Rate - - Oxygen Saturation - - Inhaled Oxygen Concentration - - Weight 84.5 kg (186 lb 3.2 oz) 10/29/2022 8:30 A M CDT Height 156.2 cm (5' 1.5) 10/29/2022 8:30 AM CDT Body Mass Index 34.61 10/29/2022 8:30 AM CDT documented in this encounter Patient Instructions * Patient Instructions* Tracy Marte PA-C - 10/29/2022 8:30 AM CDT PREVENTATIVE HEALTH RECOMMENDATIONS - Vaccines: Get a flu shot each year. Get a tetanus shot every 10 years. - Eat at least 5 servings of fruits and vegetables daily. - Eat whole-grain bread, whole-wheat pasta and brown rice instead of white grains and rice. -Limit excess carbohydrates like breads, pastas, pizzas, soda/pop, and candies/sweets and includingmore lean meats - proteins, fish and poultry, lean red meat, along with seeds, and nuts (cashews, almonds, peanuts, etc.). May also consider trying intermittent fasting, as we discuss - For bone health: Eat calcium-rich foods or take calcium pills (500 to 600 mg) twice a day with food. Also take vitamin D (2000 IU or 50 mcg) each day. - If you are at risk for osteoporosis (brittle bone disease), think about having a bone density scan (DEXA). - Exercise for at least 150 minutes a week (an average of 30 minutes a day, 5 days of the week). This will help you control your weight, blood pressure, blood sugar, cholesterol and prevent disease. - Limit alcohol intake - No smoking. Avoid nicotine only products, as well. - Wear sunscreen to prevent skin cancer. - See your dentist twice a year for an exam and cleaning. - See your eye doctor every 1 to 2 years. - Talk with your health care provider about whether or not a prostate cancer screening test (PSA) is right for you. - For colon cancer prevention and to normalize bowel movements: Increase water intake and take fiber supplements (20-30 mg/day, Metamucil/Psyllium fiber, Cirtucel/Methylcellulose fiber) - need to take with plenty of water and take regularly every day for best results. May cause some bloating and increased gas initially, will improve with time. I prefer the powder version that you mix with water, versus any of the capsules, granola, gummy, or other versions. documented in this encounter Progress Notes * Tracy Marte PA-C - 10/29/2022 8:30 AM CDT CC: Chief Complaint Patient presents with Physical Fasting Referral request Allergy referral SUBJECTIVE/PREVENTIVE HEALTH: Cristal Rosales is a 62 y.o. female, who presents today for a rountine preventive exam. Do you have other concerns to address with the doctor today?: Yes - would like a referral to the foam fabricator for ongoing allergic rhinitis and recurrent sinusitis. She would also like to see a general surgeon for removal of a lipoma on the right side of her neck. Chronic Disease Management: COPD: Breathing has been exacerbated by recent allergy flares. She has been using her Symbicort as prescribed and albuterol as needed. Does feel her breathing is well controlled with this regimen. She had a negative lung cancer screening last September, would like to defer repeating this year. Depression: Currently taking Wellbutrin 150 mg daily and sertraline 25 mg daily. Symptoms are somewhat controlled on this medication regimen. No bothersome side effects. Cardiac Risks: Blood pressure is borderline Body mass index is 34.61 kg/m??. She has had history of elevated lipids. Lab Results Component Value Date CHOLESTEROL 207 08/29/2021 CHOLESTEROL 214 04/27/2020 HDLCHOLEST 62 08/29/2021 HDLCHOLEST 67 04/27/2020 LDLCHOLEST 127 08/29/2021 LDLCHOLEST 125 04/27/2020 TRIGLYCERIDE 100 08/29/2021 TRIGLYCERIDE 110 04/27/2020 She has not had history of elevated glucose. GLUCOSE Date Value Ref Range Status 06/16/2018 127 (H) 74 - 106 mg/dL Final GLUCOSE CASUAL OP Date Value Ref Range Status 08/29/2021 87 60 - 100 mg/dL Final Family hx for early cardiac disease: none Do you have any sleep apnea, excessive snoring, or daytime drowsiness?: No The 10-year ASCVD risk score (Mariela ARNOLD, et al., 2019) is: 5.9% Values used to calculate the score: Age: 62 years Sex: Female Is Non- : No Diabetic: No Tobacco smoker: No Systolic Blood Pressure: 142 mmHg Is BP treated: No HDL Cholesterol: 62 mg/dL Total Cholesterol: 207 mg/dL No LMP recorded. Patient is postmenopausal. No post menopausal bleeding. PHQ9 Questionnaire Interest: More than half the days Depression: Several days Sleep: More than half the days Tired: More than half the days Appetite: More than half the days Feelings: Several days Concentration: More than half the days Movement: Several days Thoughts: Not at all PHQ9 Total Score, calculated: 13 Difficulty: (not recorded) TATE 7 Anxiety Questionnaire Feeling nervous, anxious, or on edge: Not at all Not being able to stop or control worrying: Not at all Worrying too much about different things: Not at all Trouble relaxing: Not at all Being so restless that it is hard to sit still: Not at all Becoming easily annoyed or irritable: Several days Feeling afraid as if something awful might happen: Several days TATE 7 Total Score, calculated: 2 If you checked off any problems, how difficult have these problems made it for you to do your work,take care of things at home or get along with other people?: Somewhat difficult (10/29/22 0854) Health Maintenance: Health Maintenance Due Topic Date Due Colonoscopy Never done Depression Follow-Up (PHQ-9) Never done Anxiety Follow-Up (TATE-7) Never done Spirometry Never done Pap Smear 07/02/2021 Yearly Review of HCD 08/29/[address] 09/12/2022 Influenza Vaccine (1) 10/12/2022 When was the patient's last tetanus vaccine?: last tetanus booster within 10 years. Would the patient like an influenza vaccine today?: Not Indicated Is the patient interested in any other vaccines today (e.g. Pneumovax, COVID booster)?: Not Indicated Last Pap (21-65): 07/02/2016, no history of abnormal paps Last Mammogram (40+ or significant FH): 09/12/2021 Last Colonoscopy (45+ or significant FH): never done Last DEXA (65+ or smoker, low BMI, hx of hip fx): not yet inidicated Low dose CT (55-80 y.o. with 30+ pack year history of smoking AND smoking in the past 15 years): Yes - 09/12/2021, negative. Past Medical History: Past Medical History: Diagnosis Date Back injury Past Surgical History: Past Surgical History: Procedure Laterality Date CHOLECYSTECTOMY; Past Obstetric History: OB History No obstetric history on file. Medications: Current Outpatient Medications: Medication Sig albuterol HFA (PROVENTIL;VENTOLIN HFA) 90 mcg/actuation Inhl inhaler INHALE 2 PUFFS BY MOUTH EVERY 4 TO 6 HOURS NEEDED FOR SHORTNESS OF BREATH OR WHEEZING budesonide 160 mcg-formoterol 4.5 mcg (SYMBICORT) 160-4.5 mcg/actuation Inhl HFAA inhaler INHALE 2 PUFFS BY MOUTH TWICE DAILY buPROPion XL (WELLBUTRIN XL) 150 mg oral extended release tablet 24 HR TAKE 1 TABLET(150 MG) BY MOUTH EVERY DAY COMBIVENT RESPIMAT 20-100 mcg/actuation Inhl Mist inhaler INHALE 1 PUFF BY MOUTH FOUR TIMES DAILY NEEDED fluticasone (FLONASE) 50 mcg/actuation nasal spray SHAKE LIQUID AND USE 2 SPRAYS IN EACH NOSTRIL EVERY DAY M[employer] Nebulizer with tubing and face mask sertraline (ZOLOFT) 25 mg oral tablet TAKE 1 TABLET(25 MG) BY MOUTH EVERY DAY Social History: Social History Tobacco Use Smoking status: Former Packs/day: 1.00 Years: 45.00 Additional pack years: 0.00 Total pack years: 45.00 Types: Cigarettes Quit date: 06/18/2017 Years since quittin.3 Smokeless tobacco: Never Tobacco comments: doesn't smoke in her house Substance Use Topics Alcohol use: No Drug use: No Social History Social History Narrative Not on file Family History: Family History Problem Relation Name Age of Onset Alzheimer's Disease Mother Heart Disease Mother CABG Asthma Mother Cancer Sister absestos Asthma Brother Lung Cancer Brother liposarcoma Asthma Son High Blood Pressure Brother Breast Cancer Neg Family Hx ROS: Constitutional ROS: Negative, No unexpected change in weight, No weakness HEENT: No changes in hearing or vision, no nose bleeds or other nasal problems Pulmonary ROS: No dyspnea on exertion, No recent change in breathing Cardiovascular ROS: No chest pain, No edema, No palpitations Gastrointestinal ROS: No abdominal pain, No nausea, vomiting, diarrhea, or constipation Genitourinary: Negative for dysuria, frequency and incontinence Musculoskeletal/Extremities: No musculoskeletal pain, weakness, or stiffness. Neuro: Denies headaches, numbness or tingling of hands, numbness or tingling of feet Skin: Negative for rash, ulcers, lesions, and itching Psychiatric ROS: No depression, No anxiety OBJECTIVE: Vitals: BP (!) 142/82 Pulse 80 Temp 98.1 ??F (36.7 ??C) (Oral) Ht 5' 1.5 (1.562 m) Wt 84.5kg (186 lb 3.2 oz) BMI 34.61 kg/m?? . General: Appears well, in no apparent distress. Psychiatric: No obvious depression or anxiety. PHQ9 Total Score, calculated: 13. HEENT: Sclera anicteric, no conjunctivitis. Pupils are equal, round, and reactive to light. Extraocular movements are intact. Bilateral tympanic membranes and canals are within normal limits. No obvious nasal congestion. Sinuses nontender to palpation. No erythema, edema, or exudates of the oral muc idalmis or posterior pharynx. Mucous membranes moist. Neck: Full range of motion without lymphadenopathy, thyromegaly, or mass. No carotid bruit. Breast: High School Foreign Language Tutor declined prior to exam. Normal without suspicious masses, skin changes, nipple changes, or axillary nodes. Lymph Nodes: No cervical, axillary, or inguinal lymphadenopathy. Heart: Normal S1, S2. Regular rate and rhythm. No murmurs, rubs, clicks, or gallops. Lungs: Clear to auscultation. No wheezes, rales, or rhonchi. Abdomen: The abdomen is soft without tenderness, guarding, mass, rebound, or organomegaly. /Rectal: High School Foreign Language Tutor declined prior to exam. No lesions of the external genitalia, vaginal mucosa, or cervix. No cervical motion tenderness. No uterine or adnexal mass or tenderness. Extremities: Moves 4 extremities symmetrically. No peripheral edema or calf tenderness. Distal pulses are 2+ and bounding. Neurologic: No facial droop or acute neurologic deficits. Gait within normal limits. Skin: No rash or suspicious lesions. ASSESSMENT/PLAN: Cristal was seen today for physical and referral request. Diagnoses and all orders for this visit: Annual physical exam Chronic bronchitis with COPD (chronic obstructive pulmonary disease) (HCC) - albuterol HFA (PROVENTIL;VENTOLIN HFA) 90 mcg/actuation Inhl inhaler; INHALE 2 PUFFS BY MOUTH EVERY 4 TO 6 HOURS NEEDED FOR SHORTNESS OF BREATH OR WHEEZING Depression, major, recurrent, moderate (HCC) Non-seasonal allergic rhinitis, unspecified trigger - REFERRAL ALLERGY Lipoma of neck - REFERRAL GENERAL SURGERY Screening for diabetes mellitus (DM) - BASIC METABOLIC PANEL 8 ([facility]) Screening for hyperlipidemia - LIPID PANEL ([facility]) Visit for screening mammogram - MAMMO SALVADOR SCREENING BI; Future Pap smear for cervical cancer screening - PAP COLLECTION - WEASAND TRIMMER PAP/APTIMA HPV W/REFLEX TO HPV GENOTYPES ([facility]) Special screening for malignant neoplasm of colon - COLOGUARD Screening for rectal cancer - COLOGUARD -Discussed risks/benefits of recommended treatments, screening tests, and medications. -See the Health Maintenance section above. -Laboratory studies are pending at the time of patient discharge, as noted. -Medications were refilled, only as noted in Epic. Routine preventative health counseling was performed, including: Immunizations UTD or offered. Adequate Calcium and Vitamin D intake Discussed current guidelines for cancer screening including: Breast: Mammogram is due, ordered today Cervix: Pap smear completed today, no further Paps if normal. Colon: Screening is overdue, we discussed colonoscopy versus Cologuard screening. She has no familyhistory of colon cancer and opts for Cologuard stool testing. She is aware of the possibility of a positive test which would require colonoscopy evaluation. Discussed more frequent screening intervals every 3 years. Discussed appropriate interventions to delay the onset of vascular disease,including: Appropriate Blood Pressure Control Appropriate Individually Risk-Stratified Lipid Levels Tobacco cessation, if appropriate Exercise goal of 150 min per week Screening for or management of diabetes. Appropriate Weight/BMI 25 or less -Schedule next well exam in 1 year; return sooner as needed. The patient was discharged ambulatory and in stable condition post discussion of follow up. Tracy Marte PA-C [facility] documented in this encounter Plan of Treatment Scheduled Orders Name Type Priority Associated Diagnoses Orde r Schedule PAP COLLECTION Procedures Routine Pap smear for cervical cancer screening Ordered: 10/29/2022 COLOGUARD Lab Routine Special screening for malignant neoplasm of colon Screening for rectal cancer Ordered: 10/29/2022 Scheduled Referrals Name Type Priority Associated Diagnoses Orde r Schedule REFERRAL ALLERGY Referral Routine Non-seasonal allergic rhinitis, unspecified trigger Ordered: 10/29/2022 REFERRAL GENERAL SURGERY Referral Routine Lipoma of neck Ordered: 10/29/2022 documented as of this encounter Procedures Procedure Name Priority Date/Time Associated Diagnosis Comments WEASAND TRIMMER PAP/APTIMA HPV W/REFLEX TO HPV GENOTYPES ([facility]) Routine 10/29/2022 9:39 AM CDT Pap smear for cervical cancer screening BASIC METABOLIC PANEL 8 ([facility]) Routine 10/29/2022 9:08 AM CDT Screening for diabetes mellitus (DM) LIPID PANEL ([facility]) Routine 10/29/2022 9:08 AM CDT Screening for hyperlipidemia documented in this encounter Results * MAMMO (MDIP) SALVADOR SCREENING BI (11/14/2022 9:04 AM CDT) [...] interval change. Tracy Heart PA-C MAMMO ORDERABLE * WEASAND TRIMMER PAP/APTIMA HPV W/REFLEX TO HPV GENOTYPES ([facility]) (10/29/2022 9:39 AM CDT) Diagnosis: ([facility]) Comment 10/13 12:09 PM CDT [facility] Comment: NEGATIVE FOR INTRAEPITHELIAL LESION OR MALIGNANCY. Specimen Adequacy: ([facility]) Comment 10/31/2022 12:09 PM CDT [facility] Comment: Satisfactory for evaluation. No endocervical component is identified. Clinician Provided ICD10: ([facility]) Comment 10/31/2022 12:09 PM CDT [facility] Comment: Z12.4 Performed by: Comment 10/31/2022 12:09 PM CDT [facility] Comment: Obey Celeste , Ice Plant Operator (ASCP) Cyto Comments ([facility]) . 10/31/2022 12:09 PM CDT [facility] Note: ([facility]) Comment 12:09 PM CDT [facility] Comment: The Pap smear is a screening test designed to aid in the detection of premalignant and malignant conditions of the uterine cervix. ??It is not a diagnostic procedure and should not be used as the sole means of detecting cervical cancer. ??Both false-positive and false-negative reports do occur. HPV Aptima ([facility]) Negative Negative 10/13 12:09 PM CDT [facility] Comment: This nucleic acid amplification test detects fourteen high-risk HPV types (16,18,31,33,35,39,45,51,52,56,58,59,66,68) without differentiation. HPV Genotype Reflex ([facility]) Comment 10/31/2022 12:09 PM CDT [facility] Comment: Criteria not met, HPV Genotype not performed. Test Methodology ([facility]) Comment 10/31/2022 12:09 PM CDT [facility] Comment: This liquid based ThinPrep(R) pap test was screened with the use of an image guided system. Pap 10/29/2022 9:39 AM CDT 10/29/2022 9:39 AM CDT Narrative [facility] - 10/31/2022 12:09 PM CDT Specimen Comment: [id number] Specimen Comment: Source.............Cervix Specimen Comment: LMP / Prev Treat...None Specimen Comment: Other..............Post Menopausal Specimen Comment: No. of containers..01 ThinPrep Vial Performed at: ??01 - [facility] [address] [facility] [address], [place], [place] ??[id number] Registered Public Surveyor: Lilian Collins MD, Phone: ??[phone] Performed at: ??02 - [facility] [address] [place] [address], [place], [place] ??[id number] Registered Public Surveyor: Nelson Montana MD, Phone: ??[phone] Performed at: ??03 - [facility] [address] ??[id number] Registered Public Surveyor: Nelson Montana MD, Phone: ??[phone] Tracy Heart PA-C [facility] ORDERABLES [facility] [address] [id number] * (ABNORMAL) BASIC METABOLIC PANEL 8 ([facility]) (10/29/2022 9:08 AM CDT) Glucose ([facility]) 107(H) 70 - 99 mg/dL 10/30/2022 8:10 AM CDT [facility] BUN ([facility]) 12 8 - 27 mg/dL 10/30/2022 8:10 AM CDT [facility] Creatinine ([facility]) 0.77 0.57 - 1.00 mg/dL 10/30/2022 8:10 AM CDT [facility] eGFR ([facility]) 86 >59 mL/min/1.7 3 10/30/2022 8:10 AM CDT [facility] BUN/Creatinine Ratio ([facility]) 16 12 - 28 10/30/2022 8:10 AM CDT [facility] Sodium ([facility]) 143 134 - 144 mmol/L 10/30/2022 8:10 AM CDT [facility] Potassium ([facility]) 4.3 3.5 - 5.2 mmol/L 10/30/2022 8:10 AM CDT [facility] Chloride ([facility]) 101 96 - 106 mmol/L 10/30/2022 8:10 AM CDT [facility] Carbon Dioxide ([facility]) 28 20 - 29 mmol/L 10/30/2022 8:10 AM CDT [facility] Calcium ([facility]) 9.6 8.7 - 10.3 mg/dL 10/30/2022 8:10 AM CDT [facility] Blood Venipuncture / Unknown 10/29/2022 9:08 AM CDT 10/29/2022 9:08 AM CDT [facility] - 10/30/2022 8:10 AM CDT Performed at: ?? - [address] ??[id number] Registered Public Surveyor: Bao Dickey MD, Phone: ??[phone] Tracy Heart PA-C [facility] ORDERABLES [facility] [address] [id number] * (ABNORMAL) LIPID PANEL ([facility]) (10/29/2022 9:08 AM CDT) Cholesterol ([facility]) 234(H) 100 - 199 mg/dL 10/30/2022 8:10 AM CDT [facility] Triglycerides ([facility]) 146 0 - 149 mg/dL 10/30/2022 8:10 AM CDT [facility] HDL Cholesterol ([facility]) 76 >39 mg/dL 10/30/2022 8:10 AM CDT [facility] VLDL Cholesterol Antoni ([facility]) 25 5 - 40 mg/dL 10/30/2022 8:10 AM CDT [facility] LDL Cholesterol Calc - NIH ([facility]) 133(H) 0 - 99 mg/dL 10/30/2022 8:10 AM CDT [facility] Blood Venipuncture / Unknown 10/29/2022 9:08 AM CDT 10/29/2022 9:08 AM CDT Narrative [facility] - 10/30/2022 8:10 AM CDT Performed at: ??01 - [facility] [address] ??[id number] Registered Public Surveyor: Bao Dickey MD, Phone: ??[phone] Tracy Heart PA-C [facility] ORDERABLES [facility] [address] [place] [address] documented in this encounter Visit Diagnoses Diagnosis Annual physical exam- Primary Routine general medical examination at a health care facility Chronic bronchitis with COPD (chronic obstructive pulmonary disease) Obstructive chronic bronchitis without exacerbation Depression, major, recurrent, moderate (HCC) Major depressive disorder, recurrent episode, moderate Non-seasonal allergic rhinitis, unspecified trigger Lipoma of neck Lipoma of other skin and subcutaneous tissue Screening for diabetes mellitus (DM) Screening for diabetes mellitus Screening for hyperlipidemia Screening for lipoid disorders Visit for screening mammogram Other screening mammogram Pap smear for cervical cancer screening Screening for malignant neoplasm of the cervix Special screening for malignant neoplasm of colon Special screening for malignant neoplasms, colon Screening for rectal cancer Screening for malignant neoplasm of the rectum Visit for screening mammogram Other screening mammogram documented in this encounter Care Teams Assembler Garment Form Relationship Specialty Start Date End Date [facility] PCP - Primary Care Clinic Family Medicine 08/21/19 Tracy Heart PA-C [address] [place] [address] PCP - General Family Medicine 10/29/22 documented as of this encounter
== END 2023-03-08 14:55 | disposition home or self-care (01) ==
LOC: NFLDREF 03-13 11:43
PROVIDERS: PCP Family Medicine; Referring Provider Family Medicine; Visit Provider Family Medicine
DX: E78.5 Hyperlipidemia, unspecified (principal); I10 Essential (primary) hypertension; F41.1 Generalized anxiety disorder; F33.1 Major depressive disorder, recurrent, moderate; J44.1 Chronic obstructive pulmonary disease with (acute) exacerbation; J44.9 Chronic obstructive pulmonary disease, unspecified
CPT/HCPCS: 80061

== ENCOUNTER 2023-12-04 10:15 | Outpatient (CLI) | payer MEDICARE, BC, OTHER, SELFPAY ==
--- OUTSIDE RECORDS SUMMARY | 2023-12-05 08:42 | XMS_ITS | Referral Summary ---
Author Organization [facility] Address [address] [place] [address] Care Team Providers Care Parent Trainer Name Role Phone Carolyn Dong MD Primary Care Provider [phone] Encounters Date Type Department Care Team Description 11/27/2023 9:30 AM CDT - 11/27/2023 11:59 PM CDT Hospital Encounter Imaging Center [facility] [address], [address] [place], [place] [address] Discharge Disposition: Returning Home/Self Care from Last 3 Months Allergies Active Allergy Reactions Criticality Noted Date Comments Mold (Juan) Runny Nose 02/16/2015 Medications Medication Sig Dispensed Refills Start Date End Date Status Miscellaneous Medical Supply Nebulizer with tubing and face mask 1 each 05/22/2019 Active fluticasone (FLONASE) 50 mcg/actuation nasal sprayIndications: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 COPD (chronic obstructive pulmonary disease) (HCC) SHAKE LIQUID AND USE 2 SPRAYS IN EACH NOSTRIL EVERY DAY 48 g 3 08/29/2021 Active COMBIVENT RESPIMAT 20-100 mcg/actuation Inhl Mist inhalerIndications:CO PD with exacerbation (HCC) INHALE 1 PUFF BY MOUTH FOUR TIMES DAILY NEEDED 12 g 3 04/14/2022 Active buPROPion XL (WELLBUTRIN XL) 150 mg oral extended release tablet 24 HRIndications:Depress ion, major, recurrent, moderate (HCC) TAKE 1 TABLET(150 MG) BY MOUTH EVERY DAY 90 tablet 3 11/26/2022 Active budesonide 160 mcg-formoterol 4.5 mcg (SYMBICORT) 160-4.5 mcg/actuation Inhl HFAA inhalerIndications:Ch ronic obstructive pulmonary disease, unspecified COPD type ([facility]) INHALE 2 PUFFS BY MOUTH TWICE DAILY 30.6 g 3 01/15/2023 Active sertraline (ZOLOFT) 25 mg oral tabletIndications:Cur rent moderate episode of major depressive disorder without prior episode ([facility]) TAKE 1 TABLET(25 MG) BY MOUTH EVERY DAY 90 tablet 2 01/10/2023 Active albuterol HFA (PROVENTIL;VENTOLIN HFA) 90 mcg/actuation Inhl inhalerIndications:Ch ronic bronchitis with COPD (chronic obstructive pulmonary disease) ([facility]) INHALE 2 PUFFS BY MOUTH EVERY 4 TO 6 HOURS NEEDED FOR SHORTNESS OF BREATH OR WHEEZING 8.5 g 1 10/17/2023 Active Active Problems Problem Noted Date Diagnosed [...] fracture of right proximal humerus 09/10/2019 04/27/2020 Overview (04/27/2020): Last Assessment & Plan: 59yo RHD F [...] supplements Immunizations Name Administration Dates Next Due Influenza recombinant (FluBl ok Quadrivalent PF) 11/09/2021,10/28/2019 Influenza split virus quadrivalent 10/25/2018,,12/26/2007 Moderna 12+ Yrs Bivalent COV ID Vaccine (Blue cap) 11/09/2021 Pneumococcal PCV13 06/27/2016 Pneumococcal PPSV23 12/02/2018 SPIKEVAX (Moderna) 12+ Yrs M onovalent COVID Vaccine (critical care registered nurse) 05/28/2020,04/30/2020 Td adult absorbed PF (2 Lf) 06/19/2003 Tdap 07/02/2016 Zoster Recombinant 01/31/2019,10/25/2018 Social History Tobacco Use Types Packs/Day Years Used Date Smoking Tobacco: Former Cigarettes 1 45 0 06/18/1972 - 06/18/2017 Smokeless Tobacco: Never Tobacco Cessation:Counseling Given: [...] on file Medical Devices Implanted Type Area Store Leader Device Identifier Shelf Expiration Date Model / Serial / Lot Stereo Bx/Hydromark T3-05/02/2020 Implanted:Qty: 1 on 05/02/2020 by Delia Gonzales MD Clip / / [id number] Procedures Procedure Name Priority Date/Time Associated Diagnosis Comments MAMMO SALVADOR SCREENING BI Routine 11/27/2023 9:57 AM CDT Encounter for screening mammogram for breast cancer LUMP ROLLER PAP/APTIMA HPV W/REFLEX TO HPV GENOTYPES ([facility]) Routine 10/29/2022 9:39 AM CDT Pap smear for cervical cancer screening LIPID PANEL ([facility]) Routine 10/29/2022 9:08 AM CDT Screening for hyperlipidemia CT CHEST LOW DOSE LUNG SCREENING W/O CON Routine 09/12/2021 1:42 PM CDT Tobacco use Smoking greater than 30 pack years Encounter for screening for lung cancer HEP C ANTIBODY Routine 07/02/2016 9:27 AM CDT Other problems related to lifestyle from Last 3 Months or Most Recently Relevant to Health Maintenance Results * MAMMO SALVADOR SCREENING BI (11/27/2023 9:57 AM CDT) Anatomical Region Laterality Modality Breast Bilateral Mammography Impressions 11/27/2023 10:52 AM CDT : NEGATIVE There is no mammographic evidence of malignancy. ?? RECOMMENDATION: ? - A screening mammogram in 1 year. BI-RADS: Overall: 1 - Negative The patient will be notified of the results. REPORT SIGNED BY MD Gregg Wiggins 11/27/2023 10:52 AM CDT EXAM: MAMMO SALVADOR SCREENING BI REASON FOR EXAM: Routine screening mammogram COMPARISON: ??Compared to: 11/14/2022 MAMMO (MDIP) SALVADOR SCREENING BI, 09/12/2021 MAMMO SALVADOR SCREENING BI, 04/27/2020 MAMMO PROB SOLV CALC ONLY RT, and 04/22/2020 MAMMO SALVADOR SCREENING BI TECHNIQUE: Craniocaudal and oblique digital views were obtained. ??Tomosynthesis technique was also utilized. Current study was evaluated with Computer Aided Detection (CAD) system. FINDINGS: The breasts are heterogeneously dense, which may obscure small masses. ??No significant masses, calcifications, or other findings are seen in either breast. ??There has been no significant interval change. ?? No Doctor MAMMO ORDERABLE * LUMP ROLLER PAP/APTIMA HPV W/REFLEX TO HPV GENOTYPES ([facility]) (10/29/2022 9:39 AM CDT) Diagnosis: ([facility]) Comment 10/13 12:09 PM CDT [facility] Comment: NEGATIVE FOR INTRAEPITHELIAL LESION OR MALIGNANCY. Specimen Adequacy: ([facility]) Comment 10/31/2022 12:09 PM CDT [facility] Comment: Satisfactory for evaluation. No endocervical component is identified. Clinician Provided ICD10: ([facility]) Comment 10/31/2022 12:09 PM CDT [facility] Comment: Z12.4 Performed by: Comment 10/31/2022 12:09 PM CDT [facility] Comment: Obey Celeste Sr, Framing Mill Operator (ASCP) Cyto Comments ([facility]) . 10/31/2022 12:09 PM CDT [facility] Note: ([facility]) Comment 12:09 PM CDT [facility] Comment: The Pap smear is a screening test designed to aid in the detection of premalignant and malignant conditions of the uterine cervix. ??It is not a diagnostic procedure and should not be used as the sole means of detecting cervical cancer. ??Both false-positive and false-negative reports do occur. HPV Aptima ([facility]) Negative Negative 10/13 12:09 PM CDT [facility] Comment: This nucleic acid amplification test detects fourteen high-risk HPV types (16,18,31,33,35,39,45,51,52,56,58,59,66,68) without differentiation. HPV Genotype Reflex ([facility]) Comment 10/31/2022 12:09 PM CDT [facility] Comment: Criteria not met, HPV Genotype not performed. Test Methodology ([facility]) Comment 10/31/2022 12:09 PM CDT [facility] Comment: This liquid based ThinPrep(R) pap test was screened with the use of an image guided system. Pap 10/29/2022 9:39 AM CDT 10/29/2022 9:39 AM CDT Narrative [facility] - 10/31/2022 12:09 PM CDT Specimen Comment: [id number] Specimen Comment: Source.............Cervix Specimen Comment: LMP / Prev Treat...None Specimen Comment: Other..............Post Menopausal Specimen Comment: No. of containers..01 ThinPrep Vial Performed at: ??01 - [facility] [address] [facility] [address], [place], [place] ??[id number] Technology Intern: Lilian Collins MD, Phone: ??[phone] Performed at: ??02 - [facility] [address] [place] [address] [address], [place], [place] ??[id number] Technology Intern: Nelson Montana MD, Phone: ??[phone] Performed at: ??03 - [facility] [address], [place], [place] ??[id number] Technology Intern: Nelson Montana MD, Phone: ??[phone] Tracy Heart PA-C [facility] ORDERABLES [facility] [address] [place] [id number] * (ABNORMAL) LIPID PANEL ([facility]) (10/29/2022 9:08 AM CDT) Cholesterol ([facility]) 234(H) 100 - 199 mg/dL 10/30/2022 8:10 AM CDT [facility] Triglycerides ([facility]) 146 0 - 149 mg/dL 10/30/2022 8:10 AM CDT [facility] HDL Cholesterol ([facility]) 76 >39 mg/dL 10/30/2022 8:10 AM CDT [facility] VLDL Cholesterol Antoni ([facility]) 25 5 - 40 mg/dL 10/30/2022 8:10 AM CDT [facility] LDL Cholesterol Calc - NIH ([facility]) 133(H) 0 - 99 mg/dL 10/30/2022 8:10 AM CDT [facility] Blood Venipuncture / Unknown 10/29/2022 9:08 AM CDT 10/29/2022 9:08 AM CDT [facility]ative [facility] - 10/30/2022 8:10 AM CDT Performed at: ??01 - [address] ??[id number] Technology Intern: Bao Dickey MD, Phone: ??[phone] Tracy Heart PA-C [facility] ORDERABLES [facility] [address] [place] [address] * CT Lung Cancer Screening (09/12/2021 1:42 PM CDT) Anatomical Region Laterality Modality Chest Computed Tomogra phy 09/12/2021 2:44 PM CDT Impressions 09/12/2021 2:52 PM CDT IMPRESSION: ?? 1. ??No CT evidence of lung cancer. 2. ??Atherosclerotic disease of the thoracic aorta and coronary arteries. 3. ??Cholecystectomy. Lung-RADS 1: ??Negative. ??Continue annual screening with LDCT in [address] REPORT SIGNED BY DR. DANUTA HUNTLEY Narrative 09/12/2021 2:52 PM CDT EXAM: CT CHEST LOW DOSE LUNG SCREENING W/O CON DATE: ??09/12/2021 1:37 PM CLINICAL DATA: ??Z72.0 Tobacco use F17.210 Nicotine dependence, cigarettes, uncomplicated Z12.2 Encounter for screening for malignant neoplasm of respiratory organs ADDITIONAL CLINICAL DATA: COMPARISON: ??None. TECHNIQUE: ??A low-dose unenhanced CT scan of the thorax was performed. ??Specifically, thin-section contiguous transaxial images were obtained through the thorax. ??Coronal reformations were also obtained through the thorax. ??No intravenous contrast was given. Reduced mA and kV were used to lower the radiation dose absorbed by the patient. FINDINGS: Mediastinum/Axilla/Colette: ??No axillary, mediastinal, or hilar lymphadenopathy. ??Atherosclerotic disease of the coronary arteries and thoracic aorta. ??No evidence of aortic aneurysm. Lungs: ??No focal infiltrates, effusions, or worrisome pulmonary nodules. Upper Abdomen: ??Cholecystectomy. ?? Bones: ??No acute findings. Other: Procedure Note Gregg Huntley MD - 09/12/2021 EXAM: CT CHEST LOW DOSE LUNG SCREENING W/O CON DATE: 09/12/2021 1:37 PM CLINICAL DATA: Z72.0 Tobacco use F17.210 Nicotine dependence, cigarettes,uncomplicated Z12.2 Encounter for screening for malignant neoplasm ofrespiratory organs ADDITIONAL CLINICAL DATA: COMPARISON: None. TECHNIQUE: A low-dose unenhanced CT scan of the thorax was performed.Specifically, thin-section contiguous transaxial images were obtainedthrough the thorax. Coronal reformations were also obtained through thethorax. No intravenous contrast was given. Reduced mA and kV were used tolower the radiation dose absorbed by the patient. FINDINGS: Mediastinum/Axilla/Colette: No axillary, mediastinal, or hilarlymphadenopathy. Atherosclerotic disease of the coronary arteries andthoracic aorta. No evidence of aortic aneurysm. Lungs: No focal infiltrates, effusions, or worrisome pulmonary nodules. Upper Abdomen: Cholecystectomy. Bones: No acute findings. Other: IMPRESSION IMPRESSION: 1. No CT evidence of lung cancer. 2. Atherosclerotic disease of the thoracic aorta and coronary arteries. 3. Cholecystectomy. Lung-RADS 1: Negative. Continue annual screening with LDCT in 12months. REPORT SIGNED BY DR. DANUTA HUNTLEY Sim Velazquez MD CT ORDERABLE * HEP C ANTIBODY (07/02/2016 9:27 AM CDT) Hepatitis C Antibody Non-Reacti ve Non-Reacti ve 07/02/2016 6:04 PM CDT [facility] Blood Venipuncture / Unknown 07/02/2016 9:27 AM CDT 07/02/2016 9:27 AM CDT Fanny Causey MD IMMUNOLOGY ORDERAB [facility] [address] [place] [address] from Last 3 Months or Most Recently Relevant to Health Maintenance Care Teams Parent Trainer Relationship Specialty Start Date End Date Carolyn Dong MD [facility] [address] [place] [address] PCP - General Family Medicine 11/27/23
--- OUTSIDE RECORDS SUMMARY | 2023-12-05 08:42 | XMS_ITS | Clinical Summary ---
Author Organization [facility] Address [address] [place] [address] Care Team Providers Care Radio Frequency Engineer Name Role Phone Carolyn Dong MD Primary Care Provider [phone] Allergies Active Allergy Reactions Criticality Noted Date Comments Mold (Juan) Runny Nose 02/16/2015 Medications Medication Sig Dispensed Refills Start Date End Date Status Miscellaneous Medical Supply Nebulizer with tubing and face mask 1 each 05/22/2019 Active fluticasone (FLONASE) 50 mcg/actuation nasal sprayIndications:Dynamics Ax Technical Architect 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 with COPD (chronic obstructive pulmonary [...] with COPD (chronic obstructive pulmonary disease) (HCC) INHALE 2 PUFFS BY MOUTH EVERY 4 [...] needed -Continue calcium and vitamin D supplements Encounters Date Type Department Care Team Description 11/27/2023 9:30 AM CDT - 11/27/2023 11:59 PM CDT Hospital Encounter [facility] [address], [address] [place] [address] Discharge Disposition: Returning Home/Self Care from Last 3 Months Immunizations Name Administration Dates Next Due Influenza recombinant (FluBl ok Quadrivalent PF) 11/09/2021,10/28/2019 Influenza split virus quadrivalent 10/25/2018,,12/26/2007 Moderna 12+ Yrs Bivalent COV ID Vaccine (Blue cap) 11/09/2021 Pneumococcal PCV13 06/27/2016 Pneumococcal PPSV23 12/02/2018 SPIKEVAX (Moderna) 12+ Yrs M onovalent COVID Vaccine (dredge boat engineer) 05/28/2020,04/30/2020 Td adult absorbed PF (2 Lf) 06/19/2003 Tdap 07/02/2016 Zoster Recombinant 01/31/2019,10/25/2018 Family History Medical History Relation Comments Asthma [...] Due Date Last Done Comments Cologuard 1960 Medicare Wellness Visit 1960 Osteoporosis Screening 1960 Spirometry 08/27/1962 Yearly Review of HCD 08/29/2022 08/29/2021, 08/21/2019, 08/21/2019, Additional history exists Depression Follow-Up (PHQ-9) 01/28/2023 10/29/2022 COVID-19 Vaccine (2023-2 5 season) 2023 12/07/2022, 11/09/2021, 06/17/2021, Additional history exists Influenza Vaccine (#1) 2023 , 11/09/2021, 10/27/2020, Additional history exists Pneumococcal 65+ (3 of 3 - P PSV23 or PCV20) 12/03/2023 12/02/2018, 06/27/2016 Mammogram Screening 11/26/2024 11/27/2023, 11/14/2022, 09/12/2021, Additional history exists Adult Tetanus Booster 07/02/2026 07/02/2016, 004 Lipid Screening 10/30/2027 10/29/2022, 08/11, 04/27/2020, Additional history exists Hepatitis C Screening Completed 07/02/2016 Zoster Vaccine Completed 01/31/2019, 10/25/[address] Discontinued 09/12/2021 Pap Smear Discontinued 10/29/2022, 06/12, 12/26/2007 (Previously completed) RSV Vaccines Completed 12/07/2022 Medical Devices Implanted Type Area Clay Mixer Device Identifier Shelf Expiration Date Model / Serial / Lot Stereo Bx/Hydromark T3-05/02/2020 Implanted:Qty: 1 on 05/02/2020 by Delia Gonzales MD Clip / / [id number] Procedures Procedure Name Priority Date/Time Associated Diagnosis Comments MAMMO SALVADOR SCREENING BI Routine 11/27/2023 9:57 AM CDT Encounter for screening mammogram for breast cancer SHAPING MACHINE TENDER PAP/APTIMA HPV W/REFLEX TO HPV GENOTYPES ([facility]) [...] change. ?? No Doctor MAMMO ORDERABLE * SHAPING MACHINE TENDER PAP/APTIMA HPV W/REFLEX TO HPV GENOTYPES ([facility]) (10/29/2022 9:39 AM CDT) Diagnosis: ([facility]) Comment 10/13 12:09 PM CDT [facility] Comment: NEGATIVE FOR INTRAEPITHELIAL LESION OR MALIGNANCY. Specimen Adequacy: ([facility]) Comment 10/31/2022 12:09 PM CDT [facility] Comment: Satisfactory for evaluation. No endocervical component is identified. Clinician Provided ICD10: ([facility]) Comment 10/31/2022 12:09 PM CDT [facility] Comment: Z12.4 Performed by: Comment 10/31/2022 12:09 PM CDT [facility] Comment: Obey Celeste Sr, Produce Team Lead (ASCP) Cyto Comments ([facility]) . 10/31/2022 12:09 PM CDT [facility] Note: ([facility]) Comment 12:09 PM CDT [facility] Comment: The Pap smear is a screening test designed to aid in the detection of premalignant and malignant conditions of the uterine cervix. ??It is not a diagnostic procedure and should not be used as the sole means of detecting cervical cancer. ??Both false-positive and false-negative reports do occur. HPV Aptima ([facility]) Negative Negative 10/13 12:09 PM CDT [facility] Comment: This nucleic acid amplification test detects fourteen high-risk HPV types (16,18,31,33,35,39,45,51,52,56,58,59,66,68) without differentiation. HPV Genotype Reflex ([facility]) Comment 10/31/2022 12:09 PM CDT [facility] Comment: Criteria not met, HPV Genotype not performed. Test Methodology ([facility]) Comment 10/31/2022 12:09 PM CDT [facility] Comment: This liquid based ThinPrep(R) pap test was screened with the use of an image guided system. Pap 10/29/2022 9:39 AM CDT 10/29/2022 9:39 AM CDT [facility]ative [facility] - 10/31/2022 12:09 PM CDT Specimen Comment: [id number] Specimen Comment: Source.............Cervix Specimen Comment: LMP / Prev Treat...None Specimen Comment: Other..............Post Menopausal Specimen Comment: No. of containers..01 ThinPrep Vial Performed at: ??01 - [facility] [address] [facility] [address], [place], [place] ??[id number] Assistant Associate Full Professor: Lilian Collins MD, Phone: ??[phone] Performed at: ??02 - [facility] [address] [facility], [place] [facility] [place], [place] ??[id number] Assistant Associate Full Professor: Nelson Montana MD, Phone: ??[phone] Performed at: ??03 - [facility] [address] ??[id number] Assistant Associate Full Professor: Nelson Montana MD, Phone: ??[phone] Tracy Heart PA-C [facility] ORDERABLES [facility] [address] [place] [address] * (ABNORMAL) LIPID PANEL ([facility]) (10/29/2022 9:08 [...] CDT 10/29/2022 9:08 AM CDT Narrative [facility] - 10/30/2022 8:10 AM CDT Performed at: ??01 - [facility] [place] [id number] [place], [place] ??[id number] Assistant Associate Full Professor: Bao Dickey MD, Phone: ??[phone] Tracy Heart PA-C [facility] ORDERABLES [facility] [address] [place] [address] * CT Lung Cancer Screening [...] 12 [address] REPORT SIGNED BY DR. DANUTA Escobedo 09/12/2021 2:52 PM CDT EXAM: CT CHEST [...] ve Non-Reacti ve 07/02/2016 6:04 PM CDT [facility] Blood Venipuncture / Unknown 07/02/2016 9:27 AM CDT 07/02/2016 9:27 AM CDT Fanny Causey MD IMMUNOLOGY ORDERAB [facility] [address] [facility] [place] [address] from Last 3 Months or Most Recently Relevant to Health Maintenance Care Teams Radio Frequency Engineer Relationship Specialty Start Date End Date Carolyn Dong MD [facility] [address] [place] [address] PCP - General Family Medicine 11/27/23
--- OUTSIDE RECORDS SUMMARY | 2023-12-05 08:42 | XMS_ITS | Clinical Summary ---
Author Organization [facility] Address [address] [place] [address] Care Team Providers Care Foreign Language Interpreter Name Role Phone Unavailable Primary Care Provider Unavailabl e Social History Tobacco Use Types Packs/Day Years Used Date Smoking Tobacco: Never Assessed Adolescent Education Answer Date Record ed Getting School Help Needed Not on file 12/10 Comments Unknown Sex and Gender Information Value Date Recorded Sex Assigned at Not on file Legal Sex Female 9:07 AM CDT Gender Identity Not on file Sexual Orientation Not on file Plan of Treatment Health Maintenance Due Date Last Done Comments ADVANCE CARE PLANNING 1960 ANNUAL REVIEW OF HM ORDERS 1958 COPD ACTION PLAN 1958 CT COLONOGRAPHY 1958 DEXA 1958 FIT 1960 FLEX SIG 1960 GLUCOSE 1958 SPIROMETRY 1958 sDNA (Cologuard) 1960 COLONOSCOPY 02/28/1968 COLORECTAL CANCER SCREENING 02/28/1968 HIV SCREENING 1973 HEPATITIS C SCREENING 02/28/1976 LIPID 1998 RSV VACCINE (1 - Risk 60-74 years 1-dose series) 2018 PHQ-2 (once per calendar year) 2023 FALL RISK ASSESSMENT 2023 COVID-19 Vaccine ( season) 2023 12/07/2022, 11/09/2021, 06/17/2021, Additional history exists INFLUENZA VACCINE (#1) 2023 , 11/09/2021, 10/27/2020, Additional history exists MEDICARE ANNUAL WELLNESS VISIT 10/30/2023 10/29/2022, 08/29/2021, 04/27/2020, Additional history exists Pneumococcal Vaccine: 65+ Years (3 of 3 - PPSV23 or PCV20) 12/03/2023 12/02/2018, 06/27/2016 MAMMO SCREENING 11/14/2024 11/14/2022, 08/0 03/2021, 04/27/2020, Additional history exists DTAP/TDAP/TD IMMUNIZATION (2 - Td or Tdap) 07/02/2026 07/02/2016, 06/19/2003 ZOSTER IMMUNIZATION Completed 01/31/2019, 9 PAP Discontinued 10/29/2022 HPV IMMUNIZATION Aged Out No longer e ligible based on patient's age to complete this topic MENINGITIS IMMUNIZATION Aged Out No l onger eligible based on patient's age to complete this topic RSV MONOCLONAL ANTIBODY Aged Out No l onger eligible based on patient's age to complete this topic Insurance FEDERAL EMPLOYEE PROGRAM / [facility] FEDERAL EMPLOYEE PROGRAM /
--- OUTSIDE RECORDS SUMMARY | 2023-12-05 08:42 | XMS_ITS | Encounter Summary ---
Author Organization [facility] Address [address] [place] [address] Care Team Providers Care Potline Monitor Name Role Phone Carolyn Dong MD Primary Care Provider [phone] Reason for Referral * (Routine) - Pending Review Specialty Diagnoses / Procedures Referred By Dominga barnett Referred To Contact Diagnoses Encounter for screening mammogram for breast cancer Procedures MAMMO SALVADOR SCREENING BI Doctor, No No ad Referral ID Status Reason Start Date Expiration Date V isits Requested Visits Authorized [id number] Pending Review 11/22/2023 1 1 Reason for Visit * (Routine) - Pending Review Specialty Diagnoses / Procedures Referred By Dominga barnett Referred To Contact Diagnoses Encounter for screening mammogram for breast cancer Procedures MAMMO SALVADOR SCREENING BI Doctor, No No ad Referral ID Status Reason Start Date Expiration Date V isits Requested Visits Authorized [id number] Pending Review 11/22/2023 1 1 Encounter Details Date Type Department Care Team (Latest Contact Info) Description 11/27/2023 9:30 AM CDT - 11/27/2023 11:59 PM CDT Hospital Encounter [facility] [address], [address] [place] [address] Discharge Disposition: Returning Home/Self Care Social History Tobacco Use Types Packs/Day Years Used Date Smoking Tobacco: Former Cigarettes 1 45 0 06/18/1972 - 06/18/2017 Smokeless Tobacco: Never Comments:doesn't smoke in [...] albuterol HFA (PROVENTIL;VENTOLIN HFA) 90 mcg/actuation Inhl inhalerIndications:Chron ic bronchitis with COPD (chronic obstructive pulmonary disease) (HCC) INHALE 2 PUFFS BY MOUTH EVERY 4 TO 6 HOURS NEEDED FOR SHORTNESS OF BREATH OR WHEEZING 8.5 g 1 10/17/2023 budesonide 160 mcg-formoterol 4.5 mcg (SYMBICORT) 160-4.5 mcg/actuation Inhl HFAA inhalerIndications:Chron ic obstructive pulmonary disease, unspecified COPD type (HCC) INHALE 2 PUFFS BY MOUTH TWICE DAILY 30.6 g 3 01/15/2023 buPROPion XL (WELLBUTRIN XL) 150 mg oral extended release tablet 24 HRIndications:Depression , major, recurrent, moderate (HCC) TAKE 1 TABLET(150 MG) BY MOUTH EVERY DAY 90 tablet 3 11/26/2022 COMBIVENT RESPIMAT 20-100 mcg/actuation Inhl Mist inhalerIndications:COPD with exacerbation (HCC) INHALE 1 PUFF BY MOUTH FOUR TIMES DAILY NEEDED 12 g 3 04/14/2022 fluticasone (FLONASE) 50 mcg/actuation nasal sprayIndications:Chronic bronchitis with COPD (chronic obstructive pulmonary disease) (HCC) SHAKE LIQUID AND USE 2 SPRAYS IN EACH NOSTRIL EVERY DAY 48 g 3 08/29/2021 Miscellaneous Medical Supply Nebulizer with tubing and face mask 1 each 05/22/2019 sertraline (ZOLOFT) 25 mg oral tabletIndications:Claudia barnett moderate episode of major depressive disorder without prior episode (HCC) TAKE 1 TABLET(25 MG) BY MOUTH EVERY DAY 90 tablet 2 01/10/2023 documented as of this encounter Plan of Treatment Not on file documented as of this encounter Procedures Procedure Name Priority Date/Time Associated Diagnosis Comments MAMMO SALVADOR SCREENING BI Routine 11/27/2023 9:57 AM CDT Encounter for screening mammogram for breast cancer documented in this encounter Results * MAMMO SALVADOR SCREENING BI (11/27/2023 9:57 AM CDT) Anatomical Region Laterality Modality Breast Bilateral Mammography Impressions 11/27/2023 10:52 AM CDT : NEGATIVE There is no mammographic evidence of malignancy. ?? RECOMMENDATION: ? - A screening mammogram in 1 year. BI-RADS: Overall: 1 - Negative The patient will be notified of the results. REPORT SIGNED BY Lesli Yuen MD Narrative 11/27/2023 10:52 AM CDT EXAM: MAMMO SALVADOR [...] interval change. ?? No Doctor MAMMO ORDERABLE documented in this encounter Visit Diagnoses Diagnosis Encounter for screening mammogram for breast cancer documented in this encounter Care Teams Potline Monitor Relationship Specialty Start Date End Date Carolyn Dong MD [address] [address] PCP - General Family Medicine 11/27/23 documented as of this encounter
--- OUTSIDE RECORDS SUMMARY | 2023-12-05 08:42 | XMS_ITS | Referral Summary ---
Author Organization [facility] Address [address] [place] [address] Care Team Providers Care Cost Estimating Manager Name Role Phone Unavailable Primary Care [...] Orientation Not on file Plan of Treatment Not on file Insurance [facility] [employer] / [facility] [employer] /
== END 2023-12-04 10:16 | disposition home or self-care (01) ==
LOC: NFLDREF 12-05 08:41
PROVIDERS: PCP Family Medicine; Referring Provider Family Medicine; Visit Provider Family Medicine
DX: E78.5 Hyperlipidemia, unspecified (principal); I10 Essential (primary) hypertension
CPT/HCPCS: 80053; 80061

== ENCOUNTER 2023-12-19 12:44 | Outpatient (CLI) | payer MEDICARE, BC, SELFPAY ==
--- OUTSIDE RECORDS SUMMARY | 2023-12-19 12:46 | XMS_ITS | Clinical Summary ---
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 with COPD (chronic obstructive pulmonary disease) [...] PM CDT Hospital Encounter [facility] [address], [address] [place] [address] Discharge Disposition: Returning Home/Self Care from Last 3 Months Immunizations Name Administration Dates Next Due Influenza recombinant (FluBl ok Quadrivalent PF) 11/09/2021,10/28/2019 Influenza split virus quadrivalent 10/25/2018,,12/26/2007 Moderna 12+ Yrs Bivalent COV ID Vaccine (Blue cap) 11/09/2021 Pneumococcal PCV13 06/27/2016 Pneumococcal PPSV23 12/02/2018 SPIKEVAX (Moderna) 12+ Yrs M onovalent COVID Vaccine (shredded filler cigar maker machine) 05/28/2020,04/30/2020 Td adult absorbed PF (2 Lf) [...] Completed 12/07/2022 Medical Devices Implanted Type Area Brake Lining Curer Device Identifier Shelf Expiration Date Model / Serial / Lot Stereo Bx/Hydromark T3-05/02/2020 Implanted:Qty: 1 on 05/02/2020 by Delia Gonzales MD Clip / / [id number] Procedures Procedure Name Priority Date/Time Associated Diagnosis Comments MAMMO SALVADOR SCREENING BI Routine 11/27/2023 9:57 AM CDT Encounter for screening mammogram for breast cancer HEEL SCORER PAP/APTIMA HPV W/REFLEX TO HPV GENOTYPES ([facility]) [...] change. ?? No Doctor MAMMO ORDERABLE * HEEL SCORER PAP/APTIMA HPV W/REFLEX TO HPV GENOTYPES ([facility]) (10/29/2022 9:39 AM CDT) Diagnosis: ([facility]) Comment 10/13 12:09 PM CDT [facility] Comment: NEGATIVE FOR INTRAEPITHELIAL LESION OR MALIGNANCY. Specimen Adequacy: ([facility]) Comment 10/31/2022 12:09 PM CDT [facility] Comment: Satisfactory for evaluation. No endocervical component is identified. Clinician Provided ICD10: ([facility]) Comment 10/31/2022 12:09 PM CDT [facility] Comment: Z12.4 Performed by: Comment 10/31/2022 12:09 PM CDT [facility] Comment: Obey Celeste Sr, Pv Installer Tech (ASCP) Cyto Comments ([facility]) . 10/31/2022 12:09 PM CDT [facility] Note: ([facility]) Comment 12:09 PM CDT [facility] Comment: The Pap smear is a screening test designed to aid in the detection of premalignant and malignant conditions of the uterine cervix. ??It is not a diagnostic procedure and should not be used as the sole means of detecting cervical cancer. ??Both false-positive and false-negative reports do occur. HPV Aptima ([facility]) Negative Negative 10/13 12:09 PM CDT [facility] Comment: This nucleic acid amplification test detects fourteen high-risk HPV types (16,18,31,33,35,39,45,51,52,56,58,59,66,68) without differentiation. HPV Genotype Reflex ([facility]) Comment 10/31/2022 12:09 PM CDT [facility] Comment: Criteria not met, HPV Genotype not performed. Test Methodology ([facility]) Comment 10/31/2022 12:09 PM CDT [facility] Comment: This liquid based ThinPrep(R) pap test was screened with the use of an image guided system. Pap 10/29/2022 9:39 AM CDT 10/29/2022 9:39 AM CDT [facility]ative [facility] - 10/31/2022 12:09 PM CDT Specimen Comment: [id number] Specimen Comment: Source.............Cervix Specimen Comment: LMP / Prev Treat...None Specimen Comment: Other..............Post Menopausal Specimen Comment: No. of containers..01 ThinPrep Vial Performed at: ??01 - [facility] [address] [facility] [address], [place], [place] ??[id number] Night Clerk Auditor: Lilian Collins MD, Phone: ??[phone] Performed at: ??02 - [facility] [place] [address] [facility], [place], [place] ??[id number] Night Clerk Auditor: Nelson Montana MD, Phone: ??[phone] Performed at: ??03 - [facility] [place] [address] ??[id number] Night Clerk Auditor: Nelson Montana MD, Phone: ??[phone] Tracy Heart PA-C [facility] ORDERABLES [facility] [address] [place] [address] * (ABNORMAL) LIPID PANEL ([facility]) [...] AM CDT Performed at: ??01 - [facility] [place] [id number] [place], [place] ??[id number] Night Clerk Auditor: Bao Dickey MD, Phone: ??[phone] Tracy [facility] PA-C [facility] ORDERABLES [facility] [address] [place] [address] * CT Lung Cancer Screening [...] ve Non-Reacti ve 07/02/2016 6:04 PM CDT [facility] Blood Venipuncture / Unknown 07/02/2016 9:27 AM CDT 07/02/2016 9:27 AM CDT Fanny Causey MD IMMUNOLOGY ORDERAB LE [facility] [address] [facility] [place] [address] from Last 3 Months or Most Recently Relevant to Health Maintenance Care Teams Tank Pumper Relationship Specialty Start Date End Date Carolyn Dong MD [facility] [address] [place] [address] PCP - General Family Medicine 11/27/23
--- OUTSIDE RECORDS SUMMARY | 2023-12-19 12:46 | XMS_ITS | Clinical Summary ---
Author Organization [facility] Address [address] [place] [address] Care Team Providers Care Die Maintenance Name Role Phone Unavailable Primary Care Provider [...] this topic Insurance [employer] / [facility] [employer] /
--- OUTSIDE RECORDS SUMMARY | 2023-12-19 12:46 | XMS_ITS | Referral Summary ---
Author Organization [facility] Address [address] [place] [address] Care Team Providers Care Lining Closer Name Role Phone Carolyn Dong MD Primary Care Provider [phone] Encounters Date Type Department Care Team Description 11/27/2023 9:30 AM CDT - 11/27/2023 11:59 PM CDT Hospital Encounter Imaging Center [facility] [address] [facility], [address] [place], [place] [address] Discharge Disposition: Returning Home/Self Care from Last 3 Months Allergies Active Allergy Reactions Criticality Noted Date Comments Mold (Juan) Runny Nose 02/16/2015 Medications Medication Sig Dispensed Refills Start Date End Date Status Miscellaneous Medical Supply Nebulizer with tubing and face mask 1 each 05/22/2019 Active fluticasone (FLONASE) 50 mcg/actuation nasal sprayIndications:Car Shagger 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 with COPD (chronic obstructive pulmonary [...] ronic obstructive pulmonary disease, unspecified COPD type ([facility]) INHALE 2 PUFFS BY MOUTH TWICE DAILY 30.6 g 3 01/15/2023 Active sertraline (ZOLOFT) 25 mg oral tabletIndications:Cur rent moderate episode of major depressive disorder without prior episode ([facility]) TAKE 1 TABLET(25 MG) BY MOUTH EVERY DAY 90 tablet 2 01/10/2023 Active albuterol HFA (PROVENTIL;VENTOLIN HFA) 90 mcg/actuation Inhl inhalerIndications:Ch ronic bronchitis with COPD (chronic obstructive pulmonary disease) ([facility]) INHALE 2 PUFFS BY MOUTH EVERY [...] (Moderna) 12+ Yrs M onovalent COVID Vaccine (registered nurse supervisor) 05/28/2020,04/30/2020 Td adult absorbed PF (2 Lf) [...] on file Medical Devices Implanted Type Area Robotic Machine Operator Device Identifier Shelf Expiration Date Model / Serial / Lot Stereo Bx/Hydromark T3-05/02/2020 Implanted:Qty: 1 on 05/02/2020 by Delia Gonzales MD Clip / / [id number] Procedures Procedure Name Priority Date/Time Associated Diagnosis Comments MAMMO SALVADOR SCREENING BI Routine 11/27/2023 9:57 AM CDT Encounter for screening mammogram for breast cancer PRODUCE ASSOCIATE PAP/APTIMA HPV W/REFLEX TO HPV GENOTYPES ([facility]) [...] change. ?? No Doctor MAMMO ORDERABLE * PRODUCE ASSOCIATE PAP/APTIMA HPV W/REFLEX TO HPV GENOTYPES ([facility]) (10/29/2022 9:39 AM CDT) Diagnosis: ([facility]) Comment 10/13 12:09 PM CDT [facility] Comment: NEGATIVE FOR INTRAEPITHELIAL LESION OR MALIGNANCY. Specimen Adequacy: ([facility]) Comment 10/31/2022 12:09 PM CDT [facility] Comment: Satisfactory for evaluation. No endocervical component is identified. Clinician Provided ICD10: ([facility]) Comment 10/31/2022 12:09 PM CDT [facility] Comment: Z12.4 Performed by: Comment 10/31/2022 12:09 PM CDT [facility] Comment: Obey Celeste Sr, Intern Retail (ASCP) Cyto Comments ([facility]) . 10/31/2022 12:09 PM CDT [facility] Note: ([facility]) Comment 12:09 PM CDT [facility] Comment: The Pap smear is a screening test designed to aid in the detection of premalignant and malignant conditions of the uterine cervix. ??It is not a diagnostic procedure and should not be used as the sole means of detecting cervical cancer. ??Both false-positive and false-negative reports do occur. HPV Aptima ([facility]) Negative Negative 10/13 12:09 PM CDT [facility] Comment: This nucleic acid amplification test detects fourteen high-risk HPV types (16,18,31,33,35,39,45,51,52,56,58,59,66,68) without differentiation. HPV Genotype Reflex ([facility]) Comment 10/31/2022 12:09 PM CDT [facility] Comment: Criteria not met, HPV Genotype not performed. Test Methodology ([facility]) Comment 10/31/2022 12:09 PM CDT [facility] Comment: This liquid based ThinPrep(R) pap test was screened with the use of an image guided system. Pap 10/29/2022 9:39 AM CDT 10/29/2022 9:39 AM CDT Narrative [facility] - 10/31/2022 12:09 PM CDT Specimen Comment: [id number] Specimen Comment: Source.............Cervix Specimen Comment: LMP / Prev Treat...None Specimen Comment: Other..............Post Menopausal Specimen Comment: No. of containers..01 ThinPrep Vial Performed at: ??01 - [facility] [address] [facility] [address], [place], [place] ??[id number] Heel Cover Softener: Lilian Collins MD, Phone: ??[phone] Performed at: ??02 - [facility] [address] [place] [address] [address], [place], [place] ??[id number] Heel Cover Softener: Nelson Montana MD, Phone: ??[phone] Performed at: ??03 - [facility] [address], [place], [place] ??[id number] Heel Cover Softener: Nelson Montana MD, Phone: ??[phone] Tracy Heart PA-C [facility] ORDERABLES [facility] [address] [place] [id number] * (ABNORMAL) LIPID PANEL ([facility]) (10/29/2022 9:08 [...] AM CDT 10/29/2022 9:08 AM CDT [facility]ative [facility] - 10/30/2022 8:10 AM CDT Performed at: ??01 - [address] ??[id number] Heel Cover Softener: Bao Dickey MD, Phone: ??[phone] Tracy Heart PA-C [facility] ORDERABLES [facility] [address] [place] [address] * CT Lung Cancer Screening [...] ve Non-Reacti ve 07/02/2016 6:04 PM CDT [facility] Blood Venipuncture / Unknown 07/02/2016 9:27 AM CDT 07/02/2016 9:27 AM CDT Fanny Causey MD IMMUNOLOGY ORDERAB LE [facility] [address] [place] [address] from Last 3 Months or Most Recently Relevant to Health Maintenance Care Teams Lining Closer Relationship Specialty Start Date End Date Carolyn Dong MD [facility] [address] [place] [address] PCP - General Family Medicine 11/27/23
--- OUTSIDE RECORDS SUMMARY | 2023-12-19 12:46 | XMS_ITS | Referral Summary ---
Author Organization [facility] Address [address] [place] [address] Care Team Providers Care Aerosol Supervisor Name Role Phone Unavailable Primary Care Provider [...] Plan of Treatment Not on file Insurance [facility] [employer] / [facility] [employer] /
--- OUTSIDE RECORDS SUMMARY | 2023-12-19 12:46 | XMS_ITS | Encounter Summary ---
Author Organization [facility] Address [address] [place] [address] Care Team Providers Care Straw Hat Presser Name Role Phone Carolyn Dong MD Primary Care Provider [phone] Reason for Referral * (Routine) - Pending Review Specialty Diagnoses / Procedures Referred By Dominga barnett Referred To Contact Diagnoses Encounter for screening mammogram for breast cancer Procedures MAMMO SALVADOR SCREENING BI Doctor, No No ad Referral ID Status Reason Start Date Expiration Date V isits Requested Visits Authorized [id number] Pending Review 11/22/2023 1 1 Reason for Visit * (Routine) - Pending Review Specialty Diagnoses / Procedures Referred By Dominga barnett Referred To Contact Diagnoses Encounter for screening mammogram for breast cancer Procedures MAMMO SALVADOR SCREENING BI Doctor, No No ad Referral ID Status Reason Start Date Expiration Date V isits Requested Visits Authorized [id number] Pending Review 11/22/2023 1 1 Encounter Details Date Type Department Care Team (Latest Contact Info) Description 11/27/2023 9:30 AM CDT - 11/27/2023 11:59 PM CDT Hospital Encounter [facility] [address], [address] [place] [address] Discharge Disposition: Returning Home/Self Care [...] cancer documented in this encounter Care Teams Straw Hat Presser Relationship Specialty Start Date End Date Carolyn Dong MD [address] [address] PCP - General Family Medicine 11/27/23 documented as of this encounter
--- NOTE | 2023-12-19 13:00 | CRLHL7_ITS ---
For Patients: As a result of the Century Cures Act, medical imaging exams and procedure reports are released immediately into your electronic medical record. You may view this report before your referring provider. If you have questions, please contact your health care provider. DXA BONE MINERAL DENSITY STUDY Reason for exam: Asymptomatic menopausal state. Current height (in): 61. Weight (lb): 192. Menopause age: 49. Ethnicity: White. 1. Have you had a previous hip or vertebral fracture? No. 2. Have you had any fractures during your adult life which did not result from significant trauma (e.g., auto accident)? No. 3. Did either of your parents have a hip fracture? No. 4. Do you smoke? No. 5. Have you ever taken Glucocorticoids? No. 6. Do you have rheumatoid arthritis? No. 7. Do you have secondary osteoporosis? No. 8. Do you drink 3 or more alcoholic drinks per day? No. 9. Are you being treated for osteoporosis? No. 10. Have you ever taken any of the following medications: Actonel, Evista, Fosamax, Miacalcin, Reclast, Boniva, Forteo, HRT (i.e., estrogen/hormone therapy), Protelos, Prolia, Vitamin D, Calcium, other ??? please specify. ANSWER: Yes, vitamin D and calcium. 11. Do you have any of the following medical conditions: Anorexia or bulimia, asthma or emphysema, end stage renal disease, hyperparathyroidism, any seizure disorders, cancer, inflammatory bowel diseases, hysterectomy, other ??? please specify. ANSWER: Yes, asthma or emphysema. 12. What was your maximum height (inches)? 61. 13. Do you perform weight bearing exercise regularly? No. 14. Do you regularly consume dairy products? Yes. 15. Do you drink caffeinated beverages? Yes. 16. At what age did your period start? 9. 17. Are you premenopausal? No. 18. How many full-term pregnancies have you had? 1. 19. Have you ever missed your period for more than 6 months in a row (not including or menopause)? No. TECHNIQUE: Bone mineral density study was performed using the [employer]. FINDINGS: The results of the study expressed as bone mineral density (BMD) are as follows: Lumbar spine L1 to L4: BMD: 1.263 g/cm2. T-score: 2.0. Z-score: 3.8 Neck Left: BMD: 0.672 g/cm2. T-score: -1.6. Z-score: 0.0 Right: BMD: 0.694 g/cm2. T-score: -1.4. Z-score: 0.2 Total Left: BMD: 0.849 g/cm2. T-score: -0.8. Z-score: 0.5 Right: BMD: 0.897 g/cm2. T-score: -0.4. Z-score: 0.9 IMPRESSION: Osteopenia. *Comparison exams done prior to 07/2019 were performed on different unit, [facility]. FRAX 10-year Fracture Risk Major Osteoporotic Fracture: 8.3% Hip Fracture: 0.9% Reported Risk Factors: [place] () Neck BMD=0.672, BMI=36.3 Heath BUNCH:breanne Transcribed: 5:22 p.m. [email or web address] breanne/Dictated by: Jose Coyle MD @ 12/22/2023 10:38:00 PM (Electronically Signed)
== END 2023-12-19 12:45 | disposition home or self-care (01) ==
PROVIDERS: PCP Family Medicine; Visit Provider Family Medicine
DX: Z78.0 Asymptomatic menopausal state (principal); M85.89 Other specified disorders of bone density and structure, multiple sites
CPT/HCPCS: 77080

== ENCOUNTER 2023-12-25 10:02 | Outpatient (CLI) | payer MEDICARE, OTHER, BC, SELFPAY ==
--- OUTSIDE RECORDS SUMMARY | 2023-12-28 20:38 | XMS_ITS | Clinical Summary ---
Author Organization [facility] Address [address] [place] [address] Care Team Providers Care Business Office Technology Instructor Name Role Phone Carolyn Dong MD Primary Care Provider [phone] Allergies Active Allergy Reactions Criticality Noted Date Comments Mold (Juan) Runny Nose 02/16/2015 Medications Miscellaneous Medical Supply Nebulizer with tubing and face mask 1 each 0 Active fluticasone (FLONASE) 50 mcg/actuation nasal sprayIndications: Chronic bronchitis with COPD (chronic obstructive pulmonary disease) (HCC) SHAKE LIQUID AND USE 2 SPRAYS IN EACH NOSTRIL EVERY DAY 48 g 3 2 Active COMBIVENT RESPIMAT 20-100 mcg/actuation Inhl Mist inhalerIndication s:COPD with exacerbation (HCC) INHALE 1 PUFF BY MOUTH FOUR TIMES DAILY NEEDED 12 g 3 3 Active buPROPion XL (WELLBUTRIN XL) 150 mg oral extended release tablet 24 HRIndications:Dep ression, major, recurrent, moderate (HCC) TAKE 1 TABLET(150 MG) BY MOUTH EVERY DAY 90 tablet 3 3 Active budesonide 160 mcg-formoterol 4.5 mcg (SYMBICORT) 160-4.5 mcg/actuation Inhl HFAA inhalerIndication s:Chronic obstructive pulmonary disease, unspecified COPD type (HCC) INHALE 2 PUFFS BY MOUTH TWICE DAILY 30.6 g 3 3 Active sertraline (ZOLOFT) 25 mg oral tabletIndications :Current moderate episode of major depressive disorder without prior episode (HCC) TAKE 1 TABLET(25 MG) BY MOUTH EVERY DAY 90 tablet 2 3 Active albuterol HFA (PROVENTIL;VENTOL IN HFA) 90 mcg/actuation Inhl inhalerIndication s:Chronic bronchitis with COPD (chronic obstructive pulmonary disease) (HCC) INHALE 2 PUFFS BY MOUTH EVERY 4 TO 6 HOURS NEEDED FOR SHORTNESS OF BREATH OR WHEEZING 8.5 g 1 4 Active Active Problems Problem Noted Date Diagnosed [...] PM CDT Hospital Encounter [facility] [address], [address] [place], [place] [address] Discharge Disposition: Returning Home/Self Care from Last 3 Months Immunizations Name Administration Dates Next Due Influenza recombinant (FluBl ok Quadrivalent PF) 11/09/2021,10/28/2019 Influenza split virus quadrivalent 10/25/2018,,12/26/2007 Moderna 12+ Yrs Bivalent COV ID Vaccine (Blue cap) 11/09/2021 Pneumococcal PCV13 06/27/2016 Pneumococcal PPSV23 12/02/2018 SPIKEVAX (Moderna) 12+ Yrs M onovalent COVID Vaccine (prepared foods supervisor) 05/28/2020,04/30/2020 Td adult absorbed PF (2 [...] Answer Date Recorded PHQ2 Total 3 10/29/2022 Comments No Sex and Gender Information Value Date Recorded Sex Assigned at Not on file 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 Gender Identity Not on file Sexual Orientation [...] Health Maintenance Due Date Last Done Comments Cammy 1960 Medicare Wellness Visit 1960 Osteoporosis Screening [...] Completed 12/07/2022 Medical Devices Implanted Type Area Coding Machine Operator Device Identifier Shelf Expiration Date Model / Serial / Lot Stereo Bx/Hydromark T3-05/02/2020 Implanted:Qty: 1 on 05/02/2020 by Delia Gonzales MD Clip / / [id number] Procedures Procedure Name Priority Date/Time Associated Diagnosis Comments MAMMO SALVADOR SCREENING BI Routine 11/27/2023 9:57 AM CDT Encounter for screening mammogram for breast cancer SUPERVISOR INVENTORY MERCHANDISING PAP/APTIMA HPV W/REFLEX TO HPV GENOTYPES ([facility]) [...] has been no significant interval change. ?? us No Doctor MAMMO ORDERABLE Final Result * SUPERVISOR INVENTORY MERCHANDISING PAP/APTIMA HPV W/REFLEX TO HPV GENOTYPES ([facility]) (10/29/2022 9:39 AM CDT) Diagnosis: ([facility]) Comment 10/13 12:09 PM CDT [facility] Comment: NEGATIVE FOR INTRAEPITHELIAL LESION OR MALIGNANCY. Specimen Adequacy: ([facility]) Comment 10/31/2022 12:09 PM CDT [facility] Comment: Satisfactory for evaluation. No endocervical component is identified. Clinician Provided ICD10: ([facility]) Comment 10/31/2022 12:09 PM CDT [facility] Comment: Z12.4 Performed by: Comment 10/31/2022 12:09 PM CDT [facility] Comment: Obey Celeste Sr, Blood Coordinator (ASCP) Cyto Comments ([facility]) . 10/31/2022 12:09 PM CDT [facility] Note: ([facility]) Comment 12:09 PM CDT [facility] Comment: The Pap smear is a screening test designed to aid in the detection of premalignant and malignant conditions of the uterine cervix. ??It is not a diagnostic procedure and should not be used as the sole means of detecting cervical cancer. ??Both false-positive and false-negative reports do occur. HPV Aptima ([facility]) Negative Negative 10/13 12:09 PM CDT [facility] Comment: This nucleic acid amplification test detects fourteen high-risk HPV types (16,18,31,33,35,39,45,51,52,56,58,59,66,68) without differentiation. HPV Genotype Reflex ([facility]) Comment 10/31/2022 12:09 PM CDT [facility] Comment: Criteria not met, HPV Genotype not performed. Test Methodology ([facility]) Comment 10/31/2022 12:09 PM CDT [facility] Comment: This liquid based ThinPrep(R) pap test was screened with the use of an image guided system. Pap 10/29/2022 9:39 AM CDT 10/29/2022 9:39 AM CDT Narrative [facility] - 10/31/2022 12:09 PM CDT Specimen Comment: [id number] Specimen Comment: Source.............Cervix Specimen Comment: LMP / Prev Treat...None Specimen Comment: Other..............Post Menopausal Specimen Comment: No. of containers..01 ThinPrep Vial Performed at: ??01 - [facility] [address] [facility] [address], [place], [place] ??[id number] Spinner Tender: Lilian Collins MD, Phone: ??[phone] Performed at: ??02 - [facility] [place] [address] [facility] [address], [place], [place] ??[id number] Spinner Tender: Nelson Montana MD, Phone: ??[phone] Performed at: ??03 - [facility] [place] [address] [facility] [address] [address], [place], [place] ??[id number] Spinner Tender: Nelson Montana MD, Phone: ??[phone] us Tracy Heart PA-C [facility] ORDERABLES Final Re sult [facility] [address] [place] [id number] * (ABNORMAL) LIPID PANEL ([facility]) (10/29/2022 9:08 [...] AM CDT Performed at: ??01 - [facility] [place] [address] [place], [place] ??[id number] Spinner Tender: Bao Dickey MD, Phone: ??[phone] us Tracy Heart PA-C [facility] ORDERABLES Final Re sult [facility] [address] [place] [address] * CT Lung Cancer Screening (09/12/2021 1:42 [...] DANUTA HUNTLEY Sim Velazquez MD CT ORDERABLE Final Resul t * HEP C ANTIBODY (07/02/2016 9:27 AM CDT) Hepatitis C Antibody Non-Reacti ve Non-Reacti ve 07/02/2016 6:04 PM CDT [facility] Blood Venipuncture / Unknown 07/02/2016 9:27 AM CDT 07/02/2016 9:27 AM CDT Fanny Causey MD IMMUNOLOGY ORDERABLE Final Result [facility] [address] [place] [address] from Last 3 Months or Most Recently Relevant to Health Maintenance Insurance [facility] 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
--- OUTSIDE RECORDS SUMMARY | 2023-12-28 20:38 | XMS_ITS | Referral Summary ---
Author Organization [facility] Address [address] [place] [address] Care Team Providers Care Wheel Truer Name Role Phone Carolyn Dong MD Primary Care Provider [phone] Encounters Date Type Department Care Team Description 11/27/2023 9:30 AM CDT - 11/27/2023 11:59 PM CDT Hospital Encounter [facility] [address] [facility], [address] [place], [place] [address] Discharge Disposition: Returning Home/Self Care from Last [...] s:Chronic obstructive pulmonary disease, unspecified COPD type ([facility]) INHALE 2 PUFFS BY MOUTH TWICE DAILY 30.6 g 3 3 Active sertraline (ZOLOFT) 25 mg oral tabletIndications :Current moderate episode of major depressive disorder without prior episode ([facility]) TAKE 1 TABLET(25 MG) BY MOUTH EVERY DAY 90 tablet 2 3 Active albuterol HFA (PROVENTIL;VENTOL IN HFA) 90 mcg/actuation Inhl inhalerIndication s:Chronic bronchitis with COPD (chronic obstructive pulmonary disease) ([facility]) INHALE 2 PUFFS BY MOUTH EVERY 4 [...] (Moderna) 12+ Yrs M onovalent 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) 05/28/2020,04/30/2020 Td adult absorbed PF (2 Lf) [...] on file 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 Gender Identity Not on file Sexual Orientation [...] on file Medical Devices Implanted Type Area Glove Wrapper Device Identifier Shelf Expiration Date Model / Serial / Lot Stereo Bx/Hydromark T3-05/02/2020 Implanted:Qty: 1 on 05/02/2020 by Delia Gonzales MD Clip / / [id number] Procedures Procedure Name Priority Date/Time Associated Diagnosis Comments MAMMO SALVADOR SCREENING BI Routine 11/27/2023 9:57 AM CDT Encounter for screening mammogram for breast cancer FINE HAIRER PAP/APTIMA HPV W/REFLEX TO HPV GENOTYPES ([facility]) [...] No Doctor MAMMO ORDERABLE Final Result * FINE HAIRER PAP/APTIMA HPV W/REFLEX TO HPV GENOTYPES ([facility]) (10/29/2022 9:39 AM CDT) Diagnosis: ([facility]) Comment 10/13 12:09 PM CDT [facility] Comment: NEGATIVE FOR INTRAEPITHELIAL LESION OR MALIGNANCY. Specimen Adequacy: ([facility]) Comment 10/31/2022 12:09 PM CDT [facility] Comment: Satisfactory for evaluation. No endocervical component is identified. Clinician Provided ICD10: ([facility]) Comment 10/31/2022 12:09 PM CDT [facility] Comment: Z12.4 Performed by: Comment 10/31/2022 12:09 PM CDT [facility] Comment: Obey Celeste Sr, Combat Systems Operator (ASCP) Cyto Comments ([facility]) . 10/31/2022 12:09 PM CDT [facility] Note: ([facility]) Comment 12:09 PM CDT [facility] Comment: The Pap smear is a screening test designed to aid in the detection of premalignant and malignant conditions of the uterine cervix. ??It is not a diagnostic procedure and should not be used as the sole means of detecting cervical cancer. ??Both false-positive and false-negative reports do occur. HPV Aptima ([facility]) Negative Negative 10/13 12:09 PM CDT [facility] Comment: This nucleic acid amplification test detects fourteen high-risk HPV types (16,18,31,33,35,39,45,51,52,56,58,59,66,68) without differentiation. HPV Genotype Reflex ([facility]) Comment 10/31/2022 12:09 PM CDT [facility] Comment: Criteria not met, HPV Genotype not performed. Test Methodology ([facility]) Comment 10/31/2022 12:09 PM CDT [facility] Comment: This liquid based ThinPrep(R) pap test was screened with the use of an image guided system. Pap 10/29/2022 9:39 AM CDT 10/29/2022 9:39 AM CDT Narrative [facility] - 10/31/2022 12:09 PM CDT Specimen Comment: [id number] Specimen Comment: Source.............Cervix Specimen Comment: LMP / Prev Treat...None Specimen Comment: Other..............Post Menopausal Specimen Comment: No. of containers..01 ThinPrep Vial Performed at: ??01 - [facility] [address] [facility] [address], [place], [place] ??[id number] E Business Specialist: Lilian Collins MD, Phone: ??[phone] Performed at: ??02 - [facility] [address] ??[id number] E Business Specialist: Nelson Montana MD, Phone: ??[phone] Performed at: ??03 - [facility] [address] ??[id number] E Business Specialist: Nelson Montana MD, Phone: ??[phone] us Tracy Heart PA-C [facility] ORDERABLES Final Re sult [facility] [address] [place] [id number] * (ABNORMAL) LIPID PANEL ([facility]) (10/29/2022 9:08 [...] AM CDT 10/29/2022 9:08 AM CDT Narrative [facility] - 10/30/2022 8:10 AM CDT Performed at: ??01 - [facility] [address] [place] [address] ??[id number] E Business Specialist: Bao Dickey MD, Phone: ??[phone] us Tracy Heart PA-C [facility] ORDERABLES Final Re sult [facility] [address] [place] [address] * CT Lung Cancer Screening (09/12/2021 1:42 [...] ve Non-Reacti ve 07/02/2016 6:04 PM CDT [facility] Blood Venipuncture / Unknown 07/02/2016 9:27 AM CDT 07/02/2016 9:27 AM CDT Fanny Causey MD IMMUNOLOGY ORDERABLE Final Result [facility] [address] [place] [address] from Last 3 Months or Most Recently Relevant to Health Maintenance Insurance [facility] 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
--- OUTSIDE RECORDS SUMMARY | 2023-12-28 20:38 | XMS_ITS | Encounter Summary ---
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 Name Role Phone Carolyn Dong MD Primary Care Provider [phone] Reason for Referral * (Routine) - Pending Review Specialty Diagnoses / Procedures Referred By Dominga barnett Referred To Contact Diagnoses Encounter for screening mammogram for breast cancer Procedures MAMMO SALVADOR SCREENING BI Doctor, No No ad Referral ID Status Reason Start Date Expiration Date V isits Requested Visits Authorized [id number] Pending Review 11/22/2023 1 1 Reason for Visit * (Routine) - Pending Review Specialty Diagnoses / Procedures Referred By Dominga barnett Referred To Contact Diagnoses Encounter for screening mammogram for breast cancer Procedures MAMMO SALVADOR SCREENING BI Doctor, No No ad Referral ID Status Reason Start Date Expiration Date V isits Requested Visits Authorized [id number] Pending Review 11/22/2023 1 1 Encounter Details Date Type Department Care Team (Latest Contact Info) Description 11/27/2023 9:30 AM CDT - 11/27/2023 11:59 PM CDT Hospital Encounter [facility] [address] [place] [address], [address] [place] [address] Discharge Disposition: Returning Home/Self Care [...] on file 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 Gender Identity Not on file Sexual Orientation Not on file documented as of this encounter Medications at Time of Discharge albuterol HFA (PROVENTIL;VENTOLI N HFA) 90 mcg/actuation Inhl inhalerIndications :Chronic bronchitis with COPD (chronic obstructive pulmonary disease) (HCC) INHALE 2 PUFFS BY MOUTH EVERY 4 TO 6 HOURS NEEDED FOR SHORTNESS OF BREATH OR WHEEZING 8.5 g 1 10/17/2023 budesonide 160 mcg-formoterol 4.5 mcg (SYMBICORT) 160-4.5 mcg/actuation Inhl HFAA inhalerIndications :Chronic obstructive pulmonary disease, unspecified COPD type (HCC) INHALE 2 PUFFS BY MOUTH TWICE DAILY 30.6 g 3 01/15/2023 buPROPion XL (WELLBUTRIN XL) 150 mg oral extended release tablet 24 HRIndications:Depr ession, major, recurrent, moderate (HCC) TAKE 1 TABLET(150 MG) BY MOUTH EVERY DAY 90 tablet 3 11/26/2022 COMBIVENT RESPIMAT 20-100 mcg/actuation Inhl Mist inhalerIndications :COPD with exacerbation ([facility]) INHALE 1 PUFF BY MOUTH FOUR TIMES DAILY NEEDED 12 g 3 04/14/2022 fluticasone (FLONASE) 50 mcg/actuation nasal sprayIndications:C hronic bronchitis with COPD (chronic obstructive pulmonary disease) ([facility]) SHAKE LIQUID AND USE 2 SPRAYS IN EACH NOSTRIL EVERY DAY 48 g 3 08/29/2021 Miscellaneous Medical Supply Nebulizer with tubing and face mask 1 each 05/22/2019 sertraline (ZOLOFT) 25 mg oral tabletIndications: Current moderate episode of major depressive [...] us No Doctor MAMMO ORDERABLE Final Result documented in this encounter Visit Diagnoses Diagnosis Encounter for screening mammogram for breast cancer documented in this encounter Care Teams High School Academic Coach Relationship Specialty Start Date End Date Carolyn Dong MD [facility] [address] [place] [address] PCP - General Family Medicine 11/27/23 documented as of this encounter
--- OUTSIDE RECORDS SUMMARY | 2023-12-28 20:38 | XMS_ITS | Clinical Summary ---
Author Organization [facility] Address [address] [place] [address] Care Team Providers Care Technician Plant And Maintenance Name Role Phone Unavailable Primary Care [...] 1960 ANNUAL REVIEW OF HM ORDERS [address] CT COLONOGRAPHY 1960 DEXA 1960 FIT 1960 FLEX SIG 1960 GLUCOSE 1960 sDNA (Cologuard) 1960 COLONOSCOPY 02/28/1968 COLORECTAL CANCER SCREENING 02/28/1968 HIV SCREENING 1973 HEPATITIS C SCREENING 02/28/1976 LIPID 1998 PHQ-2 (once per calendar year) 2023 FALL [...] - Td or Tdap) 07/02/2026 07/02/2016, 06/19/2003 RSV VACCINE (1 - 1-dose 75+ series) 2033 ZOSTER IMMUNIZATION Completed 01/31/2019, 9 PAP Discontinued 10/29/2022 HPV IMMUNIZATION Aged Out No longer e ligible based on patient's age to complete this topic MENINGITIS IMMUNIZATION Aged Out No l onger eligible based on patient's age to complete this topic RSV MONOCLONAL ANTIBODY Aged Out No l onger eligible based on patient's age to complete this topic Insurance [employer]ERAL EMPLOYEE PROGRAM / [facility] FEDERAL EMPLOYEE PROGRAM /
--- OUTSIDE RECORDS SUMMARY | 2023-12-28 20:38 | XMS_ITS | Referral Summary ---
Author Organization [facility] Address [address] [place] [address] Care Team Providers Care Denitrator Name Role Phone Unavailable Primary Care Provider [...] Plan of Treatment Not on file Insurance [facility] FEDERAL EMPLOYEE PROGRAM / [facility] FEDERAL EMPLOYEE PROGRAM /
== END 2023-12-25 10:03 | disposition home or self-care (01) ==
LOC: NFLDREF 12-28 20:36
PROVIDERS: PCP Family Medicine; Referring Provider Family Medicine; Visit Provider Family Medicine
DX: M81.0 Age-related osteoporosis without current pathological fracture (principal); M85.80 Other specified disorders of bone density and structure, unspecified site
CPT/HCPCS: 82306

== ENCOUNTER 2024-02-13 14:54 | Outpatient (CLI) | payer MEDICARE, BC, OTHER, SELFPAY ==
--- NOTE | 2024-02-13 15:00 | CRLHL7_ITS ---
For Patients: As a result of the Century Cures Act, medical imaging exams and procedure reports are released immediately into your electronic medical record. You may view this report before your referring provider. If you have questions, please contact your health care provider. INDICATION: Lung cancer screening. History of smoking. High risk patient with greater than 20 pack-year smoking history. TECHNIQUE: Low-dose lung cancer screening non-contrast CT chest. Dose reduction techniques were used. COMPARISON: No prior CT scans FINDINGS: NODULES: Subsolid nodule left upper lobe at the periphery measures 7.4 millimeters, . LUNGS AND PLEURA: Emphysematous changes. MEDIASTINUM: Visualized thyroid is unremarkable. Atherosclerotic changes. No adenopathy. CORONARY ARTERY CALCIFICATION: Present. LIMITED UPPER ABDOMEN: Vascular calcifications are present. Left adrenal nodule is present measuring 18 millimeters with mean Hounsfield units of 20. Gallbladder is absent. MUSCULOSKELETAL: Multilevel discogenic spurring. IMPRESSION: 7.4 millimeter subsolid nodule left upper lobe. 1.8 cm left adrenal nodule, indeterminate. LUNG-RADS CATEGORY: 3: Probably benign. RADIOLOGIST RECOMMENDATION: Low-dose CT chest in [address] Please note that all CT scans at this facility use dose modulation, iterative reconstruction, and/or weight-based dosing when appropriate to reduce radiation dose to as low as reasonably achievable. Dictated by Jose Bryson MD @ 02/14/2024 9:52:45 AM (Electronically Signed)
== END 2024-02-13 14:55 | disposition home or self-care (01) ==
LOC: CT 14:57
PROVIDERS: PCP Family Medicine; Visit Provider Family Medicine
DX: Z12.2 Encounter for screening for malignant neoplasm of respiratory organs (principal); R91.8 Other nonspecific abnormal finding of lung field; E27.9 Disorder of adrenal gland, unspecified; F17.210 Nicotine dependence, cigarettes, uncomplicated
CPT/HCPCS: 71271

== ENCOUNTER 2024-02-20 08:43 | Outpatient (CLI) | payer MEDICARE, BC, OTHER, SELFPAY ==
--- NOTE | 2024-02-20 09:00 | CRLHL7_ITS ---
For Patients: As a result of the Century Cures Act, medical imaging exams and procedure reports are released immediately into your electronic medical record. You may view this report before your referring provider. If you have questions, please contact your health care provider. INDICATION: Follow-up adrenal nodule TECHNIQUE: CT abdomen adrenal mass protocol acquired without and with 95 cc Isovue 370 IV contrast. Contrast-enhanced images were obtained in the portal venous and delayed phases. COMPARISON: Chest CT 02/13/2024 FINDINGS: Lower chest: Left lower lobe thin-walled cyst measuring 7 mm (559). Small hiatal hernia. Liver: Unremarkable. Normal in size and attenuation. No suspicious masses. Subcentimeter calcification within the hepatic hilum is nonspecific and may represent a partially calcified lymph node. Gallbladder and bile ducts: Prior cholecystectomy. No biliary dilatation. Pancreas: Unremarkable. No mass or inflammation. Spleen: Unremarkable. Normal in size. No masses. Adrenal glands: Left adrenal gland nodule measuring 1.9 cm with absolute washout above 60% Kidneys: Left parapelvic cysts. No suspicious masses, stones, or hydronephrosis. GI tract: Unremarkable. Normal in caliber. No sign of mass or inflammation. Vasculature: Abdominal aorta is normal in caliber. Mesenteric arteries are patent. Mild scattered atherosclerotic plaque of the abdominal aorta and branch vasculature. Lymph nodes: No lymphadenopathy. Peritoneum/Abdominal Wall: Unremarkable. No sign of mass or infiltration. No free air or significant free fluid. Bones: Unremarkable for age. IMPRESSION: Left adrenal gland nodule is compatible with an adenoma. Please note that all CT scans at this facility use dose modulation, iterative reconstruction, and/or weight-based dosing when appropriate to reduce radiation dose to as low as reasonably achievable. Dictated by Marisol Moreau MD @ 02/21/2024 11:17:48 AM (Electronically Signed)
== END 2024-02-20 08:44 | disposition home or self-care (01) ==
LOC: CT 08:44
PROVIDERS: PCP Family Medicine; Visit Provider Family Medicine
DX: E27.9 Disorder of adrenal gland, unspecified (principal)
CPT/HCPCS: 74170; Q9967

== ENCOUNTER 2024-08-12 15:50 | Outpatient (CLI) | payer MEDICARE, BC, OTHER, SELFPAY ==
--- NOTE | 2024-08-12 16:00 | CRLHL7_ITS ---
For Patients: As a result of the Century Cures Act, medical imaging exams and procedure reports are released immediately into your electronic medical record. You may view this report before your referring provider. If you have questions, please contact your health care provider. INDICATION : Lung nodule. TECHNIQUE : Noncontrast CT scan of the chest. COMPARISON: 02/13/2024. Low-dose lung CT scan. FINDINGS : Nodule: Left upper lobe lesion. Mixed attenuation. A slightly more dense nodular portion measures proximally 4 millimeters. A ground-glass portion measures about 13 millimeters. The ground-glass portion of the lesion is increased or it is more apparent since the previous exam. Some of this may be related to the routine versus the previous low-dose technique. No new pulmonary nodules Lungs and pleura: Scattered pulmonary scarring. No pleural effusions. Mediastinum: Stable atherosclerotic aortic and coronary calcification. No adenopathy. No change. Upper abdomen: 2 centimeter soft tissue density nodule left adrenal gland no change. Previous gallbladder surgical changes. Skeletal: Disc degeneration. No suspicious lesions. IMPRESSION : 1. Mixed attenuation nodule both with slightly more dense solid or semi solid and ground-glass components in the left upper lobe. 2. Can not exclude interval increase size in the ground-glass component. 3. Suggest pulmonary consultation. The lesion would be amenable to either percutaneous tissue sampling or PET-CT scan. 4. No mediastinal adenopathy. 5. Atherosclerotic vascular calcifications of the aorta and coronary arteries described above. 6. 2 centimeter indeterminate nodule in the left adrenal gland. Follow-up MRI adrenal nodule protocol could be considered. Consider correlation with biochemical adrenal endocrine function tests. Please note that all CT scans at this facility use dose modulation, iterative reconstruction, and/or weight-based dosing when appropriate to reduce radiation dose to as low as reasonably achievable. Dictated by Lloyd Hawk MD @ 08/17/2024 12:01:12 PM (Electronically Signed)
== END 2024-08-12 15:51 | disposition home or self-care (01) ==
LOC: CT 15:50
PROVIDERS: PCP Family Medicine; Visit Provider Family Medicine
DX: R91.1 Solitary pulmonary nodule (principal); E27.9 Disorder of adrenal gland, unspecified; I70.0 Atherosclerosis of aorta; I25.10 Atherosclerotic heart disease of native coronary artery without angina pectoris
CPT/HCPCS: 71250

== ENCOUNTER 2024-09-15 15:54 | Outpatient (CLI) | payer MEDICARE, BC, OTHER, SELFPAY ==
--- NOTE | 2024-09-15 16:00 | CRLHL7_ITS ---
For Patients: As a result of the Cures Act, medical imaging exams and procedure reports are released immediately into your electronic medical record. You may view this report before your referring provider. If you have questions, please contact your health care provider. INDICATION: Left adrenal lesion. COMPARISON: CT chest without intravenous contrast February 13, 2024 and August 12, 2024; and CT abdomen without and with intravenous contrast February 20, 2024. TECHNIQUE: Precontrast T1 and T2 weighted imaging; T2 haste imaging; diffusion-weighted imaging; in- and out of phase imaging; postcontrast imaging including subtraction ; 18 cc of Dotarem contrast was injected IV. FINDINGS: A 2.2 cm nodule identified in the left adrenal gland with signal dropout on the out of phase imaging indicating a lipid rich adenoma. Right adrenal gland is unremarkable. No focal hepatic or splenic pathology. A 1.1 x 0.7 cm cystic lesion head of the pancreas with high signal on the precontrast T2 haste imaging and low signal on the precontrast T1 weighted imaging without enhancement post contrast administration; rule out side-branch IPMN. Status post cholecystectomy. The kidneys are unremarkable. No retroperitoneal lymphadenopathy. No evidence of abdominal ascites. IMPRESSION: 1. A 2.2 cm lipid rich adenoma left adrenal gland. 2. A 1.1 x 0.7 cm cystic lesion head of the pancreas; ruler side-branch IPMN; follow-up MRCP and MRI abdomen in 1 year suggested 3. S/p cholecystectomy. Dictated by Tracey Benson MD @ 09/18/2024 9:53:06 AM (Electronically Signed)
== END 2024-09-15 15:55 | disposition home or self-care (01) ==
LOC: MRI 15:55
PROVIDERS: PCP Family Medicine; Visit Provider Family Medicine
DX: D35.02 Benign neoplasm of left adrenal gland (principal); K86.2 Cyst of pancreas
CPT/HCPCS: 74183; A9575

== ENCOUNTER 2024-12-08 08:40 | Outpatient (CLI) | payer MEDICARE, BC, OTHER, SELFPAY | END 2024-12-08 08:41 | disposition home or self-care (01) | LOC: NFLDREF 12-09 19:35 | PROVIDERS: PCP Family Medicine; Referring Provider Family Medicine; Visit Provider Family Medicine | DX: E78.5 Hyperlipidemia, unspecified (principal); I10 Essential (primary) hypertension; M85.851 Other specified disorders of bone density and structure, right thigh; M85.852 Other specified disorders of bone density and structure, left thigh | CPT/HCPCS: 80053; 80061; 82306; 83540; 83550 ==